=== PATIENT | female | born 1935 | race American Indian/Alaskan Native ===

== ENCOUNTER 2016-09-04 13:54 | Inpatient (IN) | payer MEDICARE ==
[2016-09-04 16:43] LABS: Basophils % (Auto) 0.7 % (0.0-1.8); Eosinophils % (Auto) 1.1 % (0.0-4.3); Hematocrit 33.1 % (30.3-42.9); Hemoglobin 10.8 gm/dl (10.1-14.3); Mean Corpuscular HGB Conc 33 % (30-34); Mean Corpuscular Hemoglobin 29 pg (28-32); Mean Corpuscular Volume 88 fl (79-97); Platelet Count 343 K/mm3 (140-440); Red Blood Count 3.76 M/mm3 (3.65-5.03); Red Cell Distribution Width 19.1 % (13.2-15.2); White Blood Count 13.7 K/mm3 (4.5-11.0)
[2016-09-04 17:01] LABS: INR 1.1 (0.87-1.13)
[2016-09-04 17:03] LABS: BUN/Creatinine Ratio 20.34; Calcium 9.5 mg/dL (8.4-10.2); Chloride 103.1 mmol/L (98-107); Potassium 4.1 mmol/L (3.6-5.0)
[2016-09-04] MEDS ORDERED: PROTONIX IV ONE (17:05)
[2016-09-04] MEDS ORDERED: NACL 0.9% 1000 ML 1,000 ML ONE (17:31)
[2016-09-04] MEDS ORDERED: NACL 0.9% 1000 ML 1,000 ML IV ONE (17:32)
[2016-09-04] MEDS ORDERED: ROCEPHIN/NS 1 GM/50 ML 50 ML IV ONE ×2 (17:32→21:48)
[2016-09-04 18:05] LABS: Creatine Kinase MB 2.5 ng/mL (0.0-4.0)
[2016-09-04 18:06] LABS: Alanine Aminotransferase 8 units/L (7-56); Albumin/Globulin Ratio 0.9 %; Alkaline Phosphatase 74 units/L (35-129); Bilirubin,Total 0.3 mg/dL (0.1-1.2); Creatine Kinase 44 units/L (30-135); Magnesium 2.3 mg/dL (1.7-2.3); Total Protein 6.2 g/dL (6.3-8.2)
[2016-09-04 18:11] LABS: Bilirubin,Direct < 0.2 mg/dL (0-0.2); Bilirubin,Indirect 0.1 mg/dL
--- NOTE | 2016-09-04 19:26 | Admit Criteria Form ---
Admission Criteria Documentation: RENAL FAILURE, ACUTE Clinical Indications for Admission to Inpatient Care ( Place 'X' for any and all applicable criteria): Admission is indicated for ALL (if I & II) or III of the following [A](2)(3)(4)( 5)(6)(7): [X ]I. Acute renal failure as indicated by ANY ONE of the following: [ ]a) A 3-fold rise in serum creatinine from baseline [ ]b) Serum creatinine greater than 4 mg/dL (354 micromoles/L) with an acute rise greater than 0.5 mg/dL (44.2 micromoles/L) [X ]c) Reduction of more than 75% in estimated glomerular filtration rate from baseline [ ]d) Estimated glomerular filtration rate less than 35 mL/min/1.73m2 (0.59mL/sec/1.73m2)in a child up to 18 years of age [ ]e) Anuria indicated by ALL of the following: [ ]i) Adequate volume status [ ]ii) Cessation of urine output indicated by ANY ONE of the following: [ ]1) Urine output less than 0.3 mL/kg/hr for 24 hours [ ]2) Anuria (urine output less than 0.1 mL/kg/ hr) for 12 hours [ X] II. Renal failure cannot be managed in an outpatient setting or observational care setting as indicating by ANY ONE of the following: [ ]a) Altered mental status that is severe or persistent [ ]b) Volume overload or Respiratory distress (eg, clinically significant pulmonary edema) that is severe or persistent [ ]c) Cardiac arrhythmias of immediate concern [ ]d) Hemodynamic instability [ ]e) Clinically significant electrolyte abnormality that requires inpatient care (eg, hyperkalemia with severe ECG findings)[B] [ X]f) Clinically significant metabolic abnormality (eg, acidosis) that is severe or persistent [ ]g) Acute treatment of renal failure (eg, renal replacement therapy) not feasible or appropriate in observational care setting [ ]h) Clinical situation too unstable or uncertain (eg, inadequate urine output, ongoing decline in renal function, etiology unclear) [ ]i) Necessary support and caregiver ability to comply with outpatient treatment cannot be arranged in observation care timeframe (eg, within 24 hours) [ ]j) Other significant finding or clinical condition judged not to be within scope of observation care [X ]III.General contraindications and/or Inappropriate clinical situations for Observational Care in patients with Acute Renal Failure, when ANY ONE of the following is required: [X ]a) Prediction of prolongation of LOS based on ANY ONE of the following may be considered as a contraindication for observational care 2, 3, 4, 5, 6, 7, 8 , 9, 10, 11 [ X]i) Age > 65 yrs. [ ]ii) Patient arriving by ambulance [ ]iii) Patient with high acuity [ ]iv) Patient requiring vital sign monitoring [ ]v) Patient on IV medication [ ]b) Systolic blood pressures 180mmHg 3,12 [ ]c) Patient with altered mental status including delirium and other alteration of consciousness, (3) [ ]d) Patient whose discharge disposition will be to a custodial home or rehabilitation home should not be managed in Emergency Department Observation Unit. CMS rule requires 3 days hospital stay before such placement.3,13 [ ]e) Patient with failure to thrive due to broad array of etiologies 3, 16,17 [ ]f) Inability to ambulate 3,14 Extended stay beyond goal length of stay may be needed for(13) [ ]a) Continuing uremic complications [ ]b) Care for comorbidities [ ]c) acute renal failure [ ]d) Need for dialysis The original [employer] content created by [employer] has been revised. The portions of the content which have been revised are identified through the use of italic text or in bold, and [facility] has neither reviewed nor approved the modified material. All other unmodified content is copyright [facility]. Please see references footnoted in the original [facility] edition 2016 Admission Criteria Met: Yes
--- NOTE | 2016-09-04 21:24 | Emergency Department Report ---
ED Abdominal Pain HPI - General Chief Complaint: Abdominal Pain Stated Complaint: ABD PAIN Time Seen by Provider: 09/04/16 16:46 Source: patient, family Mode of arrival: Wheelchair Limitations: No Limitations - History of Present Illness Initial Comments: The patient is a poor historian. As far as I can tell she is had diarrhea and vague abdominal pain for the past 2 days. He presents here with her son who is quite helpful but is also somewhat uncertain about her history. She states that her stool has been black over this time. She went to her primary care doctor who apparently found her to be hypotensive. She was therefore sent to the emergency department for further evaluation. The field her blood pressure was 112/56 and on repeat it was 0110/49. Apparently it was in the 70s prior. The patient is on Plavix. He is insulin-dependent diabetic. She has history of chronic renal insufficiency. Patient was admitted here in May and ultimately sent to rehabilitation. She is at home at this point. MD Complaint: abdominal pain -: days(s) Location: diffuse Radiation: none Migration to: no migration Severity: moderate Quality: cramping Consistency: intermittent Improves With: nothing Worsens With: nothing Context: other (clopidogrel) - Related Data Home Medications Medication Instructions Recorded Confirmed Last Taken AtorvaSTATin [Lipitor] 20 mg PO QHS 09/04/16 09/04/16 09/04/16 Clopidogrel [Plavix] 75 mg PO QDAY 09/04/16 09/04/16 09/04/16 Furosemide [Lasix TAB] 40 mg PO QDAY 09/04/16 09/04/16 09/04/16 Gabapentin [Neurontin] 400 mg PO BID 09/04/16 09/04/16 09/04/16 Insulin Glargine,Hum.rec.anlog 36 units SQ QHS 09/04/16 09/04/16 09/04/16 [Lantus Solostar] Insulin Lispro [Humalog Kwikpen 8 unit SC QAM 09/04/16 09/04/16 09/04/16 U-200] Losartan [Cozaar] 100 mg PO QAM 09/04/16 09/04/16 09/04/16 amLODIPine [Norvasc] 10 mg PO DAILY 09/04/16 09/04/16 09/04/16 cloNIDine [Catapres] 0.1 mg PO BID 09/04/16 09/04/16 09/04/16 hydrALAZINE [Apresoline TAB] 100 mg PO TID 09/04/16 09/04/16 09/04/16 Allergies Allergy/AdvReac Type Severity Reaction Status Date / Time No Known Allergies Allergy Verified 08/14/15 13:19 ED Review of Systems ROS: Stated complaint: ABD PAIN Other details as noted in HPI Constitutional: denies: chills, fever Eyes: denies: eye pain, eye discharge, vision change ENT: denies: ear pain, throat pain Respiratory: denies: cough, shortness of breath, wheezing Cardiovascular: denies: chest pain, palpitations Endocrine: no symptoms reported Gastrointestinal: abdominal pain, diarrhea. 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 - Social History Smoking Status: Never Smoker Substance Use Type: None - Medications Home Medications: Home Medications Medication Instructions Recorded Confirmed Last Taken Type AtorvaSTATin [Lipitor] 20 mg PO QHS 09/04/16 09/04/16 09/04/16 History Clopidogrel [Plavix] 75 mg PO QDAY 09/04/16 09/04/16 09/04/16 History Furosemide [Lasix TAB] 40 mg PO QDAY 09/04/16 09/04/16 09/04/16 History Gabapentin [Neurontin] 400 mg PO BID 09/04/16 09/04/16 09/04/16 History Insulin Glargine,Hum.rec.anlog 36 units SQ QHS 09/04/16 09/04/16 09/04/16 History [Lantus Solostar] Insulin Lispro [Humalog Kwikpen 8 unit SC QAM 09/04/16 09/04/16 09/04/16 History U-200] Losartan [Cozaar] 100 mg PO QAM 09/04/16 09/04/16 09/04/16 History amLODIPine [Norvasc] 10 mg PO DAILY 09/04/16 09/04/16 09/04/16 History cloNIDine [Catapres] 0.1 mg PO BID 09/04/16 09/04/16 09/04/16 History hydrALAZINE [Apresoline TAB] 100 mg PO TID 09/04/16 09/04/16 09/04/16 History ED Physical Exam - General Limitations: No Limitations General appearance: alert, in no apparent distress, other (looks somewhat dry) - Head Head exam: Present: atraumatic, normocephalic - Eye Eye exam: Present: normal appearance - ENT ENT exam: Present: mucous membranes dry - Neck Neck exam: Present: normal inspection - Respiratory Respiratory exam: Present: normal lung sounds bilaterally. Absent: respiratory distress - Cardiovascular Cardiovascular Exam: Present: regular rate, normal rhythm. Absent: systolic murmur, diastolic murmur, rubs, gallop - GI/Abdominal GI/Abdominal exam: Present: soft, normal bowel sounds. Absent: distended, tenderness, guarding, rebound, rigid, organomegaly, mass, bruit, pulsatile mass , hernia - Rectal Rectal exam: Present: heme (+) stool (trace positive. Not melanotic.) - Extremities Exam Extremities exam: Present: normal inspection - Back Exam Back exam: Present: normal inspection - Neurological Exam Neurological exam: Present: alert, oriented X3, other - Psychiatric Psychiatric exam: Present: normal affect, normal mood - Skin Skin exam: Present: warm, dry, intact, normal color. Absent: rash ED Course Vital Signs 09/04/16 09/04/16 09/04/16 14:18 16:11 16:12 Temperature 97.4 F L Pulse Rate 78 Respiratory 18 Rate Blood Pressure 96/39 103/43 Blood Pressure [Left] O2 Sat by Pulse 100 100 100 Oximetry 09/04/16 09/04/16 09/04/16 16:13 16:15 16:31 Temperature Pulse Rate 52 L 57 L 54 L Respiratory 19 15 11 L Rate Blood Pressure 103/43 103/43 103/43 Blood Pressure [Left] O2 Sat by Pulse 100 95 100 Oximetry 09/04/16 09/04/16 09/04/16 17:00 17:25 17:30 Temperature Pulse Rate 58 L 62 61 Respiratory 10 L 13 11 L Rate Blood Pressure 98/48 98/48 102/51 Blood Pressure [Left] O2 Sat by Pulse 99 99 100 Oximetry 09/04/16 09/04/16 09/04/16 17:32 17:55 18:00 Temperature Pulse Rate 62 65 Respiratory 11 L 11 L 10 L Rate Blood Pressure 102/51 120/49 Blood Pressure [Left] O2 Sat by Pulse 100 100 100 Oximetry 09/04/16 09/04/16 09/04/16 18:30 19:00 19:17 Temperature 97.8 F Pulse Rate 63 65 60 Respiratory 14 11 L 18 Rate Blood Pressure 131/47 128/50 Blood Pressure 128/50 [Left] O2 Sat by Pulse 100 98 99 Oximetry 09/04/16 09/04/16 09/04/16 19:30 20:00 20:30 Temperature Pulse Rate 64 63 55 L Respiratory 9 L 10 L 11 L Rate Blood Pressure 128/47 123/49 114/45 Blood Pressure [Left] O2 Sat by Pulse 99 99 99 Oximetry 09/04/16 09/04/16 09/04/16 21:00 21:30 22:33 Temperature Pulse Rate 59 L 62 63 Respiratory 11 L 8 L Rate Blood Pressure 103/50 112/43 112/43 Blood Pressure [Left] O2 Sat by Pulse 99 100 Oximetry 09/04/16 22:52 Temperature Pulse Rate Respiratory 12 Rate Blood Pressure Blood Pressure [Left] O2 Sat by Pulse Oximetry - Reevaluation(s) Reevaluation #1: The patient was given IV fluid and Protonix. CT of her abdomen was ultimately obtained. It showed nothing acute. Her urine on cath specimen was really quite cloudy and apparently infected. She was treated empirically with ceftriaxone. Her CT did show bilateral nephrolithiasis with an indwelling left ureteral stent. She had no significant hydronephrosis however. I think from a urology consultation. I will defer that to the hospitalist however as he is not urgently required. 09/04/16 23:22 Reevaluation #2: Apparently the patient's first nurse did do a straight cath on the patient. The urine was grossly purulent to me. I simply was sent to the lab. However apparently it was not received. I informed the current nurse to straight cath the patient again and be sure that the urine is sent for evaluation and culture. 09/04/16 23:29 ED Medical Decision Making - Lab Data Result diagrams: 09/04/16 22:10 09/04/16 16:31 Laboratory Results - last 24 hr 09/04/16 09/04/16 09/04/16 16:31 16:31 16:31 WBC 13.7 H RBC 3.76 Hgb 10.8 Hct 33.1 MCV 88 MCH 29 MCHC 33 RDW 19.1 H Plt Count 343 Lymph % (Auto) 28.6 [place] % (Auto) 7.5 H Eos % (Auto) 1.1 Baso % (Auto) 0.7 Lymph # 3.9 [place] # 1.0 H Eos # 0.2 Baso # 0.1 Seg Neutrophils % 62.1 Seg Neutrophils # 8.5 H PT 14.1 INR 1.10 APTT 27.0 Sodium 138 Potassium 4.1 Chloride 103.1 Carbon Dioxide 14 L Anion Gap 25 BUN 59 H Creatinine 2.9 H Estimated GFR 19 BUN/Creatinine Ratio 20.34 Glucose 126 H POC Glucose Lactic Acid Calcium 9.5 Magnesium Total Bilirubin Direct Bilirubin Indirect Bilirubin AST ALT Alkaline Phosphatase Total Creatine Kinase CK-MB (CK-2) CK-MB (CK-2) Rel Index Troponin T 0.031 H Total Protein Albumin Albumin/Globulin Ratio Triglycerides 200 H Cholesterol 131 LDL Cholesterol Direct 58 HDL Cholesterol 33 L Cholesterol/HDL Ratio 3.96 TSH Free T4 09/04/16 09/04/16 09/04/16 17:14 17:14 17:14 WBC RBC Hgb Hct MCV MCH MCHC RDW Plt Count Lymph % (Auto) [place] % (Auto) Eos % (Auto) Baso % (Auto) Lymph # [place] # Eos # Baso # Seg Neutrophils % Seg Neutrophils # PT INR APTT Sodium Potassium Chloride Carbon Dioxide Anion Gap BUN Creatinine Estimated GFR BUN/Creatinine Ratio Glucose POC Glucose Lactic Acid 1.6 Calcium Magnesium 2.3 Total Bilirubin 0.3 Direct Bilirubin < 0.2 Indirect Bilirubin 0.1 AST 12 ALT 8 Alkaline Phosphatase 74 Total Creatine Kinase 44 CK-MB (CK-2) 2.5 CK-MB (CK-2) Rel Index 5.6 H Troponin T Total Protein 6.2 L Albumin 3.0 L Albumin/Globulin Ratio 0.9 Triglycerides Cholesterol LDL Cholesterol Direct HDL Cholesterol Cholesterol/HDL Ratio TSH 2.530 Free T4 1.11 09/04/16 09/04/16 17:51 19:54 WBC RBC Hgb Hct MCV MCH MCHC RDW Plt Count Lymph % (Auto) [place] % (Auto) Eos % (Auto) Baso % (Auto) Lymph # [place] # Eos # Baso # Seg Neutrophils % Seg Neutrophils # PT INR APTT Sodium Potassium Chloride Carbon Dioxide Anion Gap BUN Creatinine Estimated GFR BUN/Creatinine Ratio Glucose POC Glucose 128 H Lactic Acid Calcium Magnesium Total Bilirubin Direct Bilirubin Indirect Bilirubin AST ALT Alkaline Phosphatase Total Creatine Kinase CK-MB (CK-2) CK-MB (CK-2) Rel Index Troponin T 0.027 Total Protein Albumin Albumin/Globulin Ratio Triglycerides Cholesterol LDL Cholesterol Direct HDL Cholesterol Cholesterol/HDL Ratio TSH Free T4 Laboratory Results - last 24 hr 09/04/16 09/04/16 09/04/16 16:31 16:31 16:31 WBC 13.7 H RBC 3.76 Hgb 10.8 Hct 33.1 MCV 88 MCH 29 MCHC 33 RDW 19.1 H Plt Count 343 Lymph % (Auto) 28.6 [place] % (Auto) 7.5 H Eos % (Auto) 1.1 Baso % (Auto) 0.7 Lymph # 3.9 [place] # 1.0 H Eos # 0.2 Baso # 0.1 Seg Neutrophils % 62.1 Seg Neutrophils # 8.5 H PT 14.1 INR 1.10 APTT 27.0 Sodium 138 Potassium 4.1 Chloride 103.1 Carbon Dioxide 14 L Anion Gap 25 BUN 59 H Creatinine 2.9 H Estimated GFR 19 BUN/Creatinine Ratio 20.34 Glucose 126 H POC Glucose Lactic Acid Calcium 9.5 Magnesium Total Bilirubin Direct Bilirubin Indirect Bilirubin AST ALT Alkaline Phosphatase Total Creatine Kinase CK-MB (CK-2) CK-MB (CK-2) Rel Index Troponin T 0.031 H Total Protein Albumin Albumin/Globulin Ratio Triglycerides 200 H Cholesterol 131 LDL Cholesterol Direct 58 HDL Cholesterol 33 L Cholesterol/HDL Ratio 3.96 TSH Free T4 09/04/16 09/04/16 09/04/16 17:14 17:14 17:14 WBC RBC Hgb Hct MCV MCH MCHC RDW Plt Count Lymph % (Auto) [place] % (Auto) Eos % (Auto) Baso % (Auto) Lymph # [place] # Eos # Baso # Seg Neutrophils % Seg Neutrophils # PT INR APTT Sodium Potassium Chloride Carbon Dioxide Anion Gap BUN Creatinine Estimated GFR BUN/Creatinine Ratio Glucose POC Glucose Lactic Acid 1.6 Calcium Magnesium 2.3 Total Bilirubin 0.3 Direct Bilirubin < 0.2 Indirect Bilirubin 0.1 AST 12 ALT 8 Alkaline Phosphatase 74 Total Creatine Kinase 44 CK-MB (CK-2) 2.5 CK-MB (CK-2) Rel Index 5.6 H Troponin T Total Protein 6.2 L Albumin 3.0 L Albumin/Globulin Ratio 0.9 Triglycerides Cholesterol LDL Cholesterol Direct HDL Cholesterol Cholesterol/HDL Ratio TSH 2.530 Free T4 1.11 09/04/16 09/04/16 09/04/16 17:51 19:54 22:10 WBC RBC Hgb Hct MCV MCH MCHC RDW Plt Count Lymph % (Auto) [place] % (Auto) Eos % (Auto) Baso % (Auto) Lymph # [place] # Eos # Baso # Seg Neutrophils % Seg Neutrophils # PT INR APTT Sodium Potassium Chloride Carbon Dioxide Anion Gap BUN Creatinine Estimated GFR BUN/Creatinine Ratio Glucose POC Glucose 128 H Lactic Acid Calcium Magnesium Total Bilirubin Direct Bilirubin Indirect Bilirubin AST ALT Alkaline Phosphatase Total Creatine Kinase CK-MB (CK-2) CK-MB (CK-2) Rel Index Troponin T 0.027 0.030 H Total Protein Albumin Albumin/Globulin Ratio Triglycerides Cholesterol LDL Cholesterol Direct HDL Cholesterol Cholesterol/HDL Ratio TSH Free T4 09/04/16 09/04/16 22:10 22:10 WBC 13.9 H RBC 3.42 L Hgb 9.8 L Hct 29.7 L MCV 87 MCH 29 MCHC 33 RDW 18.9 H Plt Count 353 Lymph % (Auto) 29.7 [place] % (Auto) 8.3 H Eos % (Auto) 1.3 Baso % (Auto) 0.4 Lymph # 4.1 [place] # 1.2 H Eos # 0.2 Baso # 0.1 Seg Neutrophils % 60.3 Seg Neutrophils # 8.4 H PT INR APTT Sodium Potassium Chloride Carbon Dioxide Anion Gap BUN Creatinine Estimated GFR BUN/Creatinine Ratio Glucose POC Glucose Lactic Acid 1.6 Calcium Magnesium Total Bilirubin Direct Bilirubin Indirect Bilirubin AST ALT Alkaline Phosphatase Total Creatine Kinase CK-MB (CK-2) CK-MB (CK-2) Rel Index Troponin T Total Protein Albumin Albumin/Globulin Ratio Triglycerides Cholesterol LDL Cholesterol Direct HDL Cholesterol Cholesterol/HDL Ratio TSH Free T4 - EKG Data -: EKG Interpreted by [facility] EKG shows normal: sinus rhythm, axis, intervals, QRS complexes, ST-T waves Rate: normal - EKG Data Interpretation: no acute changes - Radiology Data Radiology results: report reviewed interpreted by me: See above CT discussion - Medical Decision Making The patient's last creatinine on May 08 was 1.0. She is now acidotic with a creatinine of 2.9. She is in acute renal failure. Perhaps some of this is prerenal. She is given IV fluids. She is admitted for further evaluation. Urology and nephrology consultation would be appropriate during this hospitalization. Critical care attestation.: If time is entered above; I have spent that time in minutes in the direct care of this critically ill patient, excluding procedure time. ED Disposition Clinical Impression: Metabolic acidosis, increased anion gap, Prerenal azotemia, Hypotensive episode , Volume depletion Acute renal failure Qualifiers: Acute renal failure type: unspecified Qualified Code(s): N17.9 - Acute kidney failure, unspecified Diarrhea Qualifiers: Diarrhea type: unspecified type Qualified Code(s): R19.7 - Diarrhea, unspecified GI bleeding Qualifiers: GI bleed type/associated pathology: unspecified gastrointestinal hemorrhage type Qualified Code(s): K92.2 - Gastrointestinal hemorrhage, unspecified Disposition: OP ADMITTED IP TO THIS HOSP Is pt being admited?: Yes Does the pt Need Aspirin: No (GI bleeding) Condition: Stable Time of Disposition: 23:32
[2016-09-04] MEDS ORDERED: SODIUM BICARBONATE IV ONE ×2 (21:35→22:00)
[2016-09-04 22:35] LABS: Basophils % (Auto) 0.4 % (0.0-1.8); Eosinophils % (Auto) 1.3 % (0.0-4.3); Hematocrit 29.7 % (30.3-42.9); Hemoglobin 9.8 gm/dl (10.1-14.3); Mean Corpuscular HGB Conc 33 % (30-34); Mean Corpuscular Hemoglobin 29 pg (28-32); Mean Corpuscular Volume 87 fl (79-97); Platelet Count 353 K/mm3 (140-440); Red Blood Count 3.42 M/mm3 (3.65-5.03); Red Cell Distribution Width 18.9 % (13.2-15.2); White Blood Count 13.9 K/mm3 (4.5-11.0)
--- NOTE | 2016-09-04 22:37 | Cat Scan Report ---
FINAL REPORT EXAM: CT ABDOMEN PELVIS WO CON HISTORY: abd pain TECHNIQUE: Spiral CT scanning of the abdomen and pelvis. No oral or IV contrast administered. Multiplanar reformations. PRIORS: 17 April 2016. FINDINGS: CT abdomen: Visualized lung bases unremarkable. Solid organ evaluation is limited due to lack of IV contrast. Double-J, left ureteral stent in place. 9 mm calcification in the left renal lower pole without significant hydronephrosis. Two calcifications in the right kidney, largest measuring 7 mm in the midpole region without significant hydronephrosis. Rounded hypodensity right kidney measuring 2.4 cm. Approximately 4 cm cystic focus in left adrenal gland about the same. Remainder of visualized abdominal parenchyma grossly unremarkable. Gallbladder surgically absent. CT pelvis: No appreciable calcifications or significant dilatation in the distal ureters. Bowel grossly unremarkable with diverticular change in the sigmoid colon. Appendix within normal limits. No significant free peritoneal fluid or loculated fluid collection. Abdominal aorta is non-aneurysmal. Degenerative changes in thoracolumbar spine. IMPRESSION: 1. Bilateral nephrolithiasis and indwelling, left ureteral stent. No significant hydronephrosis. 2. Right renal hypodensity possibly representing cyst, but nonspecific. Correlation with renal ultrasound may be confirmatory, as clinically indicated. 3. Probable left adrenal cyst, stable. 4. Sigmoid colon diverticulosis.
--- NOTE | 2016-09-04 22:48 | History and Physical Report ---
History of Present Illness Chief complaint: Abdominal pain, loose stools History of present illness: 81 YO Female with HTN, TIA, CHF, DM, OA, CAD S/P Stent Placement presents to ED for evaluation. Pt states that she has experienced pain in her abdomen for the past 2 days, as well as loose stools. Pt states that her stool has been black over this time. Pt seen by PCP and found to be hypotensive with systolic BP in the 70's-80's. Pt instructed to present to ED for evaluation. Pt denies fever, chills, CP, Palpitation, Syncope, Productive cough, or recent ill contacts. Past History Past Medical History: arthritis, CAD, diabetes, heart failure, hypertension, stroke Past Surgical History: hysterectomy Social history: , lives with family. denies: smoking, alcohol abuse, prescription drug abuse Family history: diabetes, hypertension Medications and Allergies Allergies Allergy/AdvReac Type Severity Reaction Status Date / Time No Known Allergies Allergy Verified 08/14/15 13:19 Home Medications Medication Instructions Recorded Confirmed Last Taken Type AtorvaSTATin [Lipitor] 20 mg PO QHS 09/04/16 09/04/16 09/04/16 History Clopidogrel [Plavix] 75 mg PO QDAY 09/04/16 09/04/16 09/04/16 History Furosemide [Lasix TAB] 40 mg PO QDAY 09/04/16 09/04/16 09/04/16 History Gabapentin [Neurontin] 400 mg PO BID 09/04/16 09/04/16 09/04/16 History Insulin Glargine,Hum.rec.anlog 36 units SQ QHS 09/04/16 09/04/16 09/04/16 History [Lantus Solostar] Insulin Lispro [Humalog Kwikpen 8 unit SC QAM 09/04/16 09/04/16 09/04/16 History U-200] Losartan [Cozaar] 100 mg PO QAM 09/04/16 09/04/16 09/04/16 History amLODIPine [Norvasc] 10 mg PO DAILY 09/04/16 09/04/16 09/04/16 History cloNIDine [Catapres] 0.1 mg PO BID 09/04/16 09/04/16 09/04/16 History hydrALAZINE [Apresoline TAB] 100 mg PO TID 09/04/16 09/04/16 09/04/16 History Review of Systems All systems: negative Gastrointestinal: abdominal pain Exam - Constitutional Vitals: Temp Pulse Resp BP Pulse Ox 97.8 F 60 18 128/50 99 09/04/16 19:17 09/04/16 19:17 09/04/16 19:17 09/04/16 19:17 09/04/16 19:17 General appearance: Present: mild distress - EENT Eyes: Present: PERRL ENT: hearing intact, clear oral mucosa - Neck Neck: Present: supple, normal ROM - Respiratory Respiratory effort: normal Respiratory: bilateral: CTA - Cardiovascular Heart Sounds: Present: S1 & S2. Absent: rub, click - Extremities Extremities: pulses symmetrical, No edema Peripheral Pulses: within normal limits - Abdominal General gastrointestinal: Present: soft, non-tender, non-distended, normal bowel sounds Female genitourinary: Present: normal - Integumentary Integumentary: Present: clear, dry, decreased turgor - Musculoskeletal Musculoskeletal: generalized weakness - Psychiatric Psychiatric: appropriate mood/affect, intact judgment & insight - Neurologic Neurologic: CNII-XII intact, moves all extremities Results - Labs CBC & Chem 7: 09/04/16 22:10 09/04/16 16:31 Labs: Abnormal lab results 09/04/16 09/04/16 09/04/16 Range/Units 16:31 16:31 17:14 WBC 13.7 H (4.5-11.0) K/mm3 RBC (3.65-5.03) M/mm3 Hgb (10.1-14.3) gm/dl Hct (30.3-42.9) % RDW 19.1 H (13.2-15.2) % [place] % (Auto) 7.5 H (0.0-7.3) % [place] # 1.0 H (0.0-0.8) K/mm3 Seg Neutrophils # 8.5 H (1.8-7.7) K/mm3 Carbon Dioxide 14 L (22-30) mmol/L BUN 59 H (7-17) mg/dL Creatinine 2.9 H (0.7-1.2) mg/dL Glucose 126 H (65-100) mg/dL POC Glucose (70-105) CK-MB (CK-2) Rel Index 5.6 H (0-4) Troponin T 0.031 H (0.00-0.029) ng/mL Total Protein 6.2 L (6.3-8.2) g/dL Albumin 3.0 L (3.9-5) g/dL Triglycerides 200 H (2-149) mg/dL HDL Cholesterol 33 L (40-59) mg/dL 09/04/16 09/04/16 Range/Units 17:51 22:10 WBC 13.9 H (4.5-11.0) K/mm3 RBC 3.42 L (3.65-5.03) M/mm3 Hgb 9.8 L (10.1-14.3) gm/dl Hct 29.7 L (30.3-42.9) % RDW 18.9 H (13.2-15.2) % [place] % (Auto) 8.3 H (0.0-7.3) % [place] # 1.2 H (0.0-0.8) K/mm3 Seg Neutrophils # 8.4 H (1.8-7.7) K/mm3 Carbon Dioxide (22-30) mmol/L BUN (7-17) mg/dL Creatinine (0.7-1.2) mg/dL Glucose (65-100) mg/dL POC Glucose 128 H (70-105) CK-MB (CK-2) Rel Index (0-4) Troponin T (0.00-0.029) ng/mL Total Protein (6.3-8.2) g/dL Albumin (3.9-5) g/dL Triglycerides (2-149) mg/dL HDL Cholesterol (40-59) mg/dL Assessment and Plan - Patient Problems (1) Sepsis Current Visit: No Status: Acute Qualifiers: Sepsis type: sepsis due to unspecified organism Qualified Code(s): A41.9 - Sepsis, unspecified organism Plan to address problem: Sepsis Protocol: IV abx, IVF, supportive care, (2) Acute renal failure Current Visit: Yes Status: Acute Qualifiers: Acute renal failure type: unspecified Qualified Code(s): N17.9 - Acute kidney failure, unspecified Plan to address problem: IVF, supportive care, treat sepsis, (3) Debility Current Visit: No Status: Acute Plan to address problem: Chronic: supportive care, treat sepsis, PT consulted. (4) UTI (urinary tract infection) Current Visit: No Status: Acute Qualifiers: Urinary tract infection type: acute cystitis Hematuria presence: without hematuria Qualified Code(s): N30.00 - Acute cystitis without hematuria Plan to address problem: IV abx, supportive care, (5) CHF (congestive heart failure) Current Visit: No Status: Chronic Qualifiers: Congestive heart failure type: unspecified congestive heart failure type Congestive heart failure chronicity: unspecified congestive heart failure chronicity Qualified Code(s): I50.9 - Heart failure, unspecified Plan to address problem: No decompensation at tiime of exam, monitor uop q shift, continue current home medication. (6) Hypertension Current Visit: No Status: Chronic Qualifiers: Hypertension type: essential hypertension Qualified Code(s): I10 - Essential (primary) hypertension Plan to address problem: monitor bp q shift, (7) Type 2 diabetes mellitus Current Visit: No Status: Chronic Qualifiers: Diabetes mellitus complication status: with hyperglycemia Diabetes mellitus jail insulin use: with jail use Qualified Code(s): E11.65 - Type 2 diabetes mellitus with hyperglycemia; Z79.4 - halfway (current) use of insulin Plan to address problem: ADA diet, insulin, accu check (8) DVT prophylaxis Current Visit: No Status: Acute
[2016-09-05] MEDS ORDERED: ZOFRAN IV PRN (00:45)
[2016-09-05] MEDS ORDERED: DULCOLAX PR PRN (00:45)
[2016-09-05] MEDS ORDERED: MILK OF MAGNESIA PO PRN (00:45)
[2016-09-05 00:57] LABS: Bacteria,Urine 2+ /HPF (Negative); Bilirubin,Urine NEG (Negative); Blood,Urine MOD (Negative); Ketones,Urine TR mg/dL (Negative); Leukocyte Esterase,Urine LG (Negative); Mucus,Urine FEW /HPF; Nitrite,Urine NEG (Negative); Urobilinogen,Urine < 2.0 mg/dL (<2.0)
[2016-09-05 00:59] LABS: WBC,Urine > 182.0 /HPF (0.0-6.0)
[2016-09-05] MEDS ORDERED: SODIUM CHLORIDE FLUSH SYRINGE 10 ML IV PRN (06:09)
[2016-09-05 06:57] LABS: Creatine Kinase MB 5.2 ng/mL (0.0-4.0)
[2016-09-05] MEDS ORDERED: LOVENOX SUB-Q ONE ×2 (07:36→08:11)
--- NOTE | 2016-09-05 07:51 | XRay Report ---
PORTABLE CHEST: An AP portable view of the chest demonstrates a normal cardiac contour considering the limits of this technique. The lungs are clear with no evidence of infiltrate, fluid or failure. IMPRESSION: Normal portable chest.
[2016-09-05] MEDS: APRESOLINE PO SCH ×3 (08:29→22:45)
[2016-09-05] MEDS ORDERED: COZAAR PO SCH (10:00)
[2016-09-05] MEDS ORDERED: INSULIN LISPRO 8 UNIT SC SCH (10:00)
[2016-09-05] MEDS: PLAVIX PO SCH (12:09)
[2016-09-05] MEDS: LOVENOX SUB-Q SCH (12:09)
[2016-09-05] MEDS: CATAPRES PO SCH ×2 (12:10→22:45)
[2016-09-05] MEDS: NEURONTIN PO SCH ×2 (12:11→22:45)
[2016-09-05] MEDS: NORVASC PO SCH (12:11)
[2016-09-05] MEDS: LASIX PO SCH (13:34)
[2016-09-05 14:07] LABS: Creatine Kinase MB 5.6 ng/mL (0.0-4.0)
[2016-09-05] MEDS: NOVOLOG SUB-Q SCH (15:06)
[2016-09-05] MEDS: NACL 0.45% 1000 ML 1,000 ML IV SCH (15:39)
--- NOTE | 2016-09-05 17:46 | Echocardiography Report ---
Transthoracic Echocardiogram Indication: CHEST PAIN BP: 116/46 HR: 68 Conclusions *There is trace mitral regurgitation. *There is trace tricuspid regurgitation. *The left ventricular chamber size is normal. *Global left ventricular systolic function is normal. *The estimated ejection fraction is 65-70%. *Abnormal left ventricular diastolic filling is observed, consistent with impaired relaxation. *The right ventricular chamber size and systolic function are within normal limits. Findings Procedure Info: The study quality is fair. The study is technically limited due to poor acoustic windows. Left Ventricle: The left ventricular chamber size is normal. Global left ventricular wall motion and contractility are within normal limits. Global left ventricular systolic function is normal. The estimated ejection fraction is 65-70%. Abnormal left ventricular diastolic filling is observed, consistent with impaired relaxation. Left Atrium: The left atrium is normal in size with no visual thrombus identified. Right Ventricle: The right ventricular chamber size and systolic function are within normal limits. Right Atrium: The right atrial cavity size is normal. Aortic Valve: The aortic valve is trileaflet. The aortic valve leaflets are mildly thickened. There is no evidence of aortic regurgitation. There is no evidence of aortic stenosis. The peak instantaneous gradient of the aortic valve is 9 mmHg. The aortic valve area, by peak velocities, is calculated at 3.25 cm2. Mitral Valve: The mitral valve leaflets appear normal. There is trace of mitral regurgitation. There is no evidence of mitral stenosis. Tricuspid Valve: The tricuspid valve is not well visualized. There is trace tricuspid regurgitation. The right ventricular systolic pressure is calculated at 38 mmHg. There is no tricuspid stenosis. Pulmonic Valve: The pulmonic valve is not well visualized. There is trace pulmonic regurgitation. There is no pulmonic stenosis. Pericardium: There is no pericardial effusion. No pleural effusion is present. Aorta: The aorta appears normal. There is no dilatation of the ascending aorta. There is no dilatation of the aortic root. Pulmonary Artery: The main pulmonary artery is not well visualized. Measurements Chambers MM Name Value Normal Range IVSd (MM) 1.06 cm (0.6 - 1.1) LVPWd (MM) 0.99 cm (0.6 - 1.1) IVS:LVPW ratio 1.07 ratio - LVIDd (MM) 3.78 cm (3.7 - 5.6) LVIDs (MM) 2.05 cm (2 - 2.8) LV FS (Teichholz) (MM) 45.8 % - LV FS (cube) (MM) 45.8 % - EF Teichholz (MM) 77.8 % - Ao root diameter (MM) 3.3 cm (2 - 3.7) LA dimension (AP) MM 3.9 cm (1.9 - 4) LA:Ao ratio (MM) 1.18 ratio - AV cusp separation (MM) 2.4 cm (1.5 - 2.6) Chambers 2D Name Value Normal Range IVSd (2D) 1.11 cm (0.6 - 1.1) LVPWd 1.1 cm - LVPWd (2D) 1.12 cm (0.6 - 1.1) IVS:LVPW ratio (2D) 0.99 ratio - LVIDd 3.6 cm - LVIDs 2.6 cm - LVIDd (2D) 3.57 cm (3.7 - 5.6) LVIDs (2D) 2.56 cm (2 - 3.8) LV FS (Teichholz) (2D) 28.3 % - LV FS (cube) (2D) 28.3 % - LV EF (2D) 55 % - EF Teichholz (2D) 55.5 % - LA dimension 2.6 cm - Ao root diameter (2D) 3.2 cm (2 - 3.7) LA dimension (AP) 2D 2.6 cm (1.9 - 4) LA:Ao ratio (2D) 0.81 ratio - Volumes/Mass Name Value Normal Range LA ESV SP 4CH (MOD) 31 ml - LV EDV SP 4CH (MOD) 60 ml - LV ESV SP 4CH (MOD) 23 ml - EF SP 4CH (MOD) 62 % - Diastolic/Systolic Function Name Value Normal Range MV E-wave Vmax 0.73 m/sec - MV deceleration time 335 msec - MV A-wave Vmax 0.97 m/sec - MV E:A ratio 0.8 ratio - LV septal e' Vmax 0.05 m/sec - LV lateral e' Vmax 0.06 m/sec - LV E:e' septal ratio 14.1 ratio - LV E:e' lateral ratio 11.4 ratio - Aortic Valve Name Value Normal Range AV Vmax 1.46 m/sec - AV peak gradient 9 mmHg - LVOT diameter 2.2 cm - LVOT Vmax 1.25 m/sec - LVOT peak gradient 6 mmHg - PANCHO (continuity Vmax) 3.25 cm2 - Tricuspid Valve Name Value Normal Range TR Vmax 2.95 m/sec - TR peak gradient 35 mmHg - RAP 3 mmHg - RVSP 38 mmHg - Pulmonic Valve/Qp:Qs Name Value Normal Range PV Vmax 1.1 m/sec - PV peak gradient 5 mmHg - HI end-diastolic Vmax 1.38 m/sec - PV acceleration time 116 msec -
--- NOTE | 2016-09-05 18:33 | Progress Note ---
Assessment and Plan Assessment and plan: 81 YO Female with HTN, TIA, CHF, DM, OA, CAD S/P Stent Placement presents to ED for evaluation. Pt states that she has experienced pain in her abdomen for the past 2 days, as well as loose stools. Pt states that her stool has been black over this time. Pt seen by PCP and found to be hypotensive with systolic BP in the 70's-80's. Pt instructed to present to ED for evaluation. Pt denies fever, chills, CP, Palpitation, Syncope, Productive cough, or recent ill contacts. * Abdominal pain with diarrhea rule out C. difficile * Stool sent for C. difficile rule out. This is likely secondary to gastroenteritis. Will monitor closely. * Acute kidney injury likely secondary to vasomotor nephropathy * Has prerenal in nature we'll monitor closely patient is being gently hydrated. If no improvement will suggest obtaining a nephrology consultation * Elevated troponin doubt ACS no chest pain * Again no chest pain echocardiogram shows a preserved ejection fraction shows a relaxation defect possible patient's known CHF history is diastolic no exacerbation at this time * Leukocytosis-likely reactive doubt sepsis * Likely reactive bone monitor closely * Dementia * Hypotension likely secondary to volume contraction * Gentle fluid resuscitation * Metabolic acidosis * We'll add bicarbonate to fluids and recheck in a.m. * Anemia * We'll monitor closely * Diabetes mellitus * Insulin therapy. They close attention aspiration has not been elevated much by mouth. * Debility * Physical therapy evaluate and treat * DVT and GI prophylaxis * Anticipate discharge in a.m. if stable and no C. difficile. History Interval history: Follow-up abdominal pain with loose stool Patient seen and examined this morning in no acute distress, patient's poor historian To Reach Family Was Unsuccessful Denies any chest pain, nausea, vomiting, no further diarrhea noted here in the hospital abdominal pain also resolved No fever noted blood pressure controlled No adverse events reported to me by nursing staff Hospitalist Physical - Physical exam Narrative exam: VITAL SIGNS: Reviewed. GENERAL: The patient appeared well nourished and normally developed. Vital signs as documented. HEAD: No signs of head trauma. EYES: Pupils are equal. Extraocular motions intact. EARS: Hearing grossly intact. MOUTH: Oropharynx is normal. NECK: No adenopathy, no JVD. CHEST: Chest with clear breath sounds bilaterally. No wheezes, rales, or rhonchi. CARDIAC: Regular rate and rhythm. S1 and S2, without murmurs, gallops, or rubs. VASCULAR: No Edema. Peripheral pulses normal and equal in all extremities. ABDOMEN: Soft, without detectable tenderness. No sign of distention. No rebound or guarding, and no masses palpated. Bowel Sounds normal. MUSCULOSKELETAL: Good range of motion of all major joints. Extremities without clubbing, cyanosis or edema. NEUROLOGIC EXAM: Alert and oriented x 3. No focal sensory or strength deficits. Speech normal. Follows commands. PSYCHIATRIC: Mood normal. SKIN: No rash or lesions. - Constitutional Vitals: Temp Pulse Resp BP Pulse Ox 97.6 F 64 20 125/58 98 09/05/16 15:00 09/05/16 17:19 09/05/16 15:00 09/05/16 15:00 09/05/16 11:00 General appearance: Present: mild distress Results - Labs CBC & Chem 7: 09/04/16 22:10 09/04/16 16:31 Labs: Laboratory Last Values WBC 13.9 K/mm3 (4.5-11.0) H 09/04/16 22:10 RBC 3.42 M/mm3 (3.65-5.03) L 09/04/16 22:10 Hgb 9.8 gm/dl (10.1-14.3) L 09/04/16 22:10 Hct 29.7 % (30.3-42.9) L 09/04/16 22:10 MCV 87 fl (79-97) 09/04/16 22:10 MCH 29 pg (28-32) 09/04/16 22:10 MCHC 33 % (30-34) 09/04/16 22:10 RDW 18.9 % (13.2-15.2) H 09/04/16 22:10 Plt Count 353 K/mm3 (140-440) 09/04/16 22:10 Lymph % (Auto) 29.7 % (13.4-35.0) 09/04/16 22:10 [place] % (Auto) 8.3 % (0.0-7.3) H 09/04/16 22:10 Eos % (Auto) 1.3 % (0.0-4.3) 09/04/16 22:10 Baso % (Auto) 0.4 % (0.0-1.8) 09/04/16 22:10 Lymph # 4.1 K/mm3 (1.2-5.4) 09/04/16 22:10 [place] # 1.2 K/mm3 (0.0-0.8) H 09/04/16 22:10 Eos # 0.2 K/mm3 (0.0-0.4) 09/04/16 22:10 Baso # 0.1 K/mm3 (0.0-0.1) 09/04/16 22:10 Seg Neutrophils % 60.3 % (40.0-70.0) 09/04/16 22:10 Seg Neutrophils # 8.4 K/mm3 (1.8-7.7) H 09/04/16 22:10 PT 14.1 Sec. (12.2-14.9) 09/04/16 16:31 INR 1.10 (0.87-1.13) 09/04/16 16:31 APTT 27.0 Sec. (24.2-36.6) 09/04/16 16:31 D-Dimer 402.80 ng/mlDDU (0-234) H 09/05/16 01:03 Sodium 138 mmol/L (137-145) 09/04/16 16:31 Potassium 4.1 mmol/L (3.6-5.0) 09/04/16 16:31 Chloride 103.1 mmol/L (98-107) 09/04/16 16:31 Carbon Dioxide 14 mmol/L (22-30) L 09/04/16 16:31 Anion Gap 25 mmol/L 09/04/16 16:31 BUN 59 mg/dL (7-17) H 09/04/16 16:31 Creatinine 2.9 mg/dL (0.7-1.2) H 09/04/16 16:31 Estimated GFR 19 ml/min 09/04/16 16:31 BUN/Creatinine Ratio 20.34 % 09/04/16 16:31 Glucose 126 mg/dL (65-100) H 09/04/16 16:31 POC Glucose 117 (70-105) H 09/05/16 12:46 Lactic Acid 1.6 mmol/L (0.7-2.0) 09/04/16 22:10 Calcium 9.5 mg/dL (8.4-10.2) 09/04/16 16:31 Magnesium 2.3 mg/dL (1.7-2.3) 09/04/16 17:14 Total Bilirubin 0.3 mg/dL (0.1-1.2) 09/04/16 17:14 Direct Bilirubin < 0.2 mg/dL (0-0.2) 09/04/16 17:14 Indirect Bilirubin 0.1 mg/dL 09/04/16 17:14 AST 12 units/L (5-40) 09/04/16 17:14 ALT 8 units/L (7-56) 09/04/16 17:14 Alkaline Phosphatase 74 units/L (35-129) 09/04/16 17:14 Total Creatine Kinase 103 units/L (30-135) 09/05/16 12:58 CK-MB (CK-2) 5.6 ng/mL (0.0-4.0) H 09/05/16 12:58 CK-MB (CK-2) Rel Index 5.4 (0-4) H 09/05/16 12:58 Troponin T 0.019 ng/mL (0.00-0.029) 09/05/16 12:58 Total Protein 6.2 g/dL (6.3-8.2) L 09/04/16 17:14 Albumin 3.0 g/dL (3.9-5) L 09/04/16 17:14 Albumin/Globulin Ratio 0.9 % 09/04/16 17:14 Triglycerides 200 mg/dL (2-149) H 09/04/16 16:31 Cholesterol 131 mg/dL (50-199) 09/04/16 16:31 LDL Cholesterol Direct 58 mg/dL (50-130) 09/04/16 16:31 HDL Cholesterol 33 mg/dL (40-59) L 09/04/16 16:31 Cholesterol/HDL Ratio 3.96 % 09/04/16 16:31 TSH 2.530 mlU/mL (0.270-4.200) 09/04/16 17:14 Free T4 1.11 ng/dL (0.76-1.46) 09/04/16 17:14 Urine Color Yellow (Yellow) 09/04/16 00:12 Urine Turbidity Cloudy (Clear) 09/04/16 00:12 Urine pH 5.0 (5.0-7.0) 09/04/16 00:12 Ur Specific [place] 1.011 (1.003-1.030) 09/04/16 00:12 Urine Protein 100 mg/dl mg/dL (Negative) 09/04/16 00:12 Urine Glucose (UA) Neg mg/dL (Negative) 09/04/16 00:12 Urine Ketones Tr mg/dL (Negative) 09/04/16 00:12 Urine Blood Mod (Negative) 09/04/16 00:12 Urine Nitrite Neg (Negative) 09/04/16 00:12 Urine Bilirubin Neg (Negative) 09/04/16 00:12 Urine Urobilinogen < 2.0 mg/dL (<2.0) 09/04/16 00:12 Ur Leukocyte Esterase Lg (Negative) 09/04/16 00:12 Urine WBC (Auto) > 182.0 /HPF (0.0-6.0) H 09/04/16 00:12 Urine RBC (Auto) 177.0 /HPF (0.0-6.0) 09/04/16 00:12 Urine Bacteria (Auto) 2+ /HPF (Negative) 09/04/16 00:12 Urine WBC Clumps 3+ /HPF 09/04/16 00:12 Amorphous Crystals Few 09/04/16 00:12 Hyaline Casts 4 /LPF 09/04/16 00:12 Urine Mucus Few /HPF 09/04/16 00:12 Urine Yeast (Budding) Few /HPF 09/04/16 00:12 - Imaging and Cardiology Chest x-ray: image reviewed (personally reviewed no acute pathology noted)
[2016-09-05 18:47] LABS: Creatine Kinase MB 5.2 ng/mL (0.0-4.0)
[2016-09-05] MEDS ORDERED: INSULIN GLARGINE HUM REC ANLOG 36 UNIT SQ SCH (22:00)
[2016-09-05] MEDS: SODIUM BICARBONATE PO SCH (22:45)
[2016-09-05] MEDS: LEVEMIR SUB-Q SCH ×2 (22:47→23:15)
[2016-09-06] MEDS: NACL 0.45% 1000 ML 1,000 ML IV SCH ×2 (05:49→22:05)
[2016-09-06 06:09] LABS: BUN/Creatinine Ratio 24.21; Calcium 8.8 mg/dL (8.4-10.2); Chloride 111.6 mmol/L (98-107); Potassium 4.4 mmol/L (3.6-5.0)
[2016-09-06 06:21] LABS: Basophils % (Auto) 0.7 % (0.0-1.8); Eosinophils % (Auto) 1.5 % (0.0-4.3); Hematocrit 26.7 % (30.3-42.9); Hemoglobin 9.1 gm/dl (10.1-14.3); Mean Corpuscular HGB Conc 34 % (30-34); Mean Corpuscular Hemoglobin 29 pg (28-32); Mean Corpuscular Volume 85 fl (79-97); Platelet Count 324 K/mm3 (140-440); Red Blood Count 3.14 M/mm3 (3.65-5.03); Red Cell Distribution Width 18.4 % (13.2-15.2); White Blood Count 12.3 K/mm3 (4.5-11.0)
[2016-09-06] MEDS: LOVENOX SUB-Q SCH (10:25)
[2016-09-06] MEDS: PLAVIX PO SCH (10:26)
[2016-09-06] MEDS: LASIX PO SCH (10:26)
[2016-09-06] MEDS: SODIUM BICARBONATE PO SCH ×2 (10:26→21:55)
[2016-09-06] MEDS: NEURONTIN PO SCH ×2 (10:26→21:55)
[2016-09-06] MEDS: NORVASC PO SCH (10:26)
[2016-09-06] MEDS: NOVOLOG SUB-Q SCH (10:27)
[2016-09-06] MEDS: CATAPRES PO SCH ×2 (10:27→21:55)
[2016-09-06] MEDS: APRESOLINE PO SCH ×3 (10:28→21:55)
[2016-09-06] MEDS ORDERED: FLUARIX QUAD 2016-2017(36 MOS+) IM ONE (12:00)
[2016-09-06] MEDS ORDERED: ZOFRAN IV PRN (12:58)
--- NOTE | 2016-09-06 12:59 | Progress Note ---
Assessment and Plan Assessment and plan: Patient is a 81 YO woman with a history of HTN, TIA, CHF, DM, OA, CAD S/P Stent Placement presents to ED for evaluation. Pt states that she has experienced pain in her abdomen for the past 2 days, as well as loose stools. Pt states that her stool has been black over this time. Pt seen by PCP and found to be hypotensive with systolic BP in the 70's-80's. Pt instructed to present to ED for evaluation. Pt denies fever, chills, CP, Palpitation, Syncope, Productive cough, or recent ill contacts. Abdominal pain with diarrhea rule out C. difficile-->no c.diffe, patient without bowel movement/diarrhea Stool sent for C. difficile rule out. This is likely secondary to gastroenteritis. Will monitor closely. Acute kidney injury likely secondary to vasomotor nephropathy Has prerenal in nature we'll monitor closely patient is being gently hydrated with improvement Elevated troponin doubt ACS no chest pain Again no chest pain echocardiogram shows a preserved ejection fraction shows a relaxation defect possible patient's known CHF history is diastolic no exacerbation at this time Leukocytosis-likely reactive doubt sepsis Likely reactive bone monitor closely Dementia Hypotension likely secondary to volume contraction Gentle fluid resuscitation Metabolic acidosis We'll add bicarbonate to fluids and recheck in a.m. Anemia We'll monitor closely Diabetes mellitus Insulin therapy. They close attention aspiration has not been elevated much by mouth. Debility Physical therapy evaluate and treat DVT and GI prophylaxis Disposition: Continue inpatient care New issues: Drop in hematocrit with positive fecal occult blood: Consult to GI, repeat CBC in a.m. UTI, present on admission--> urine culture cultures in progress, will empirically treated with IV Rocephin CT abdomen and pelvis without contrast showed bilateral nephrolithiasis, left urethral stent and right renal hypodensity--consult urology, reviewed all records stent was placed in 04/[address] Moses History Interval history: Patient seen and examined. Follow up on diarrhea which has stopped. Overnight uneventful. No cp, sob, n/v or severe headaches. Imaging, old records, testing, labs, nursing notes reviewed. Hospitalist Physical - Physical exam Narrative exam: GEN: frial, deconditioned, NAD, AWAKE, ALERT, ORIENTATED HEENT: NCAT, PERRL, EOMI, OP CLEAR NECK: SUPPLE, NO THYROMEGALY, NO JVD, NO LAD CVS: RRR, NORMAL S1S2 LUNGS/CHEST: CTA B, NORMAL CHEST EXPANSION B, GOOD AIR ENTRY B ABD: SOFT NTND, GBS, NO REBOUND OR GUARDING EXT/SKIN: NO SIGNIFICANT EDEMA OR RASH MSK: FROM X 4 EXTREMITIES NEURO: CN 2-12 GROSSLY INTACT, NO new FOCAL DEFICITS PSY: CALM - Constitutional Vitals: Temp Pulse Resp BP Pulse Ox 97.7 F 75 20 114/53 100 09/06/16 08:31 09/06/16 08:31 09/06/16 08:31 09/06/16 08:31 09/06/16 08:31 Results - Labs CBC & Chem 7: 09/06/16 05:01 09/06/16 05:01 Labs: Laboratory Last Values WBC 12.3 K/mm3 (4.5-11.0) H 09/06/16 05:01 RBC 3.14 M/mm3 (3.65-5.03) L 09/06/16 05:01 Hgb 9.1 gm/dl (10.1-14.3) L 09/06/16 05:01 Hct 26.7 % (30.3-42.9) L 09/06/16 05:01 MCV 85 fl (79-97) 09/06/16 05:01 MCH 29 pg (28-32) 09/06/16 05:01 MCHC 34 % (30-34) 09/06/16 05:01 RDW 18.4 % (13.2-15.2) H 09/06/16 05:01 Plt Count 324 K/mm3 (140-440) 09/06/16 05:01 Lymph % (Auto) 22.8 % (13.4-35.0) 09/06/16 05:01 [place] % (Auto) 9.8 % (0.0-7.3) H 09/06/16 05:01 Eos % (Auto) 1.5 % (0.0-4.3) 09/06/16 05:01 Baso % (Auto) 0.7 % (0.0-1.8) 09/06/16 05:01 Lymph # 2.8 K/mm3 (1.2-5.4) 09/06/16 05:01 [place] # 1.2 K/mm3 (0.0-0.8) H 09/06/16 05:01 Eos # 0.2 K/mm3 (0.0-0.4) 09/06/16 05:01 Baso # 0.1 K/mm3 (0.0-0.1) 09/06/16 05:01 Seg Neutrophils % 65.2 % (40.0-70.0) 09/06/16 05:01 Seg Neutrophils # 8.0 K/mm3 (1.8-7.7) H 09/06/16 05:01 PT 14.1 Sec. (12.2-14.9) 09/04/16 16:31 INR 1.10 (0.87-1.13) 09/04/16 16:31 APTT 27.0 Sec. (24.2-36.6) 09/04/16 16:31 D-Dimer 402.80 ng/mlDDU (0-234) H 09/05/16 01:03 Sodium 145 mmol/L (137-145) D 09/06/16 05:01 Potassium 4.4 mmol/L (3.6-5.0) 09/06/16 05:01 Chloride 111.6 mmol/L (98-107) H 09/06/16 05:01 Carbon Dioxide 15 mmol/L (22-30) L 09/06/16 05:01 Anion Gap 23 mmol/L 09/06/16 05:01 BUN 46 mg/dL (7-17) H 09/06/16 05:01 Creatinine 1.9 mg/dL (0.7-1.2) H 09/06/16 05:01 Estimated GFR 31 ml/min 09/06/16 05:01 BUN/Creatinine Ratio 24.21 % 09/06/16 05:01 Glucose 94 mg/dL (65-100) 09/06/16 05:01 POC Glucose 101 (70-105) 09/06/16 05:39 Lactic Acid 1.6 mmol/L (0.7-2.0) 09/04/16 22:10 Calcium 8.8 mg/dL (8.4-10.2) 09/06/16 05:01 Magnesium 2.3 mg/dL (1.7-2.3) 09/04/16 17:14 Total Bilirubin 0.3 mg/dL (0.1-1.2) 09/04/16 17:14 Direct Bilirubin < 0.2 mg/dL (0-0.2) 09/04/16 17:14 Indirect Bilirubin 0.1 mg/dL 09/04/16 17:14 AST 12 units/L (5-40) 09/04/16 17:14 ALT 8 units/L (7-56) 09/04/16 17:14 Alkaline Phosphatase 74 units/L (35-129) 09/04/16 17:14 Total Creatine Kinase 92 units/L (30-135) 09/05/16 17:18 CK-MB (CK-2) 5.2 ng/mL (0.0-4.0) H 09/05/16 17:18 CK-MB (CK-2) Rel Index 5.6 (0-4) H 09/05/16 17:18 Troponin T 0.025 ng/mL (0.00-0.029) 09/05/16 17:18 Total Protein 6.2 g/dL (6.3-8.2) L 09/04/16 17:14 Albumin 3.0 g/dL (3.9-5) L 09/04/16 17:14 Albumin/Globulin Ratio 0.9 % 09/04/16 17:14 Triglycerides 200 mg/dL (2-149) H 09/04/16 16:31 Cholesterol 131 mg/dL (50-199) 09/04/16 16:31 LDL Cholesterol Direct 58 mg/dL (50-130) 09/04/16 16:31 HDL Cholesterol 33 mg/dL (40-59) L 09/04/16 16:31 Cholesterol/HDL Ratio 3.96 % 09/04/16 16:31 TSH 2.530 mlU/mL (0.270-4.200) 09/04/16 17:14 Free T4 1.11 ng/dL (0.76-1.46) 09/04/16 17:14 Urine Color Yellow (Yellow) 09/04/16 00:12 Urine Turbidity Cloudy (Clear) 09/04/16 00:12 Urine pH 5.0 (5.0-7.0) 09/04/16 00:12 Ur Specific [place] 1.011 (1.003-1.030) 09/04/16 00:12 Urine Protein 100 mg/dl mg/dL (Negative) 09/04/16 00:12 Urine Glucose (UA) Neg mg/dL (Negative) 09/04/16 00:12 Urine Ketones Tr mg/dL (Negative) 09/04/16 00:12 Urine Blood Mod (Negative) 09/04/16 00:12 Urine Nitrite Neg (Negative) 09/04/16 00:12 Urine Bilirubin Neg (Negative) 09/04/16 00:12 Urine Urobilinogen < 2.0 mg/dL (<2.0) 09/04/16 00:12 Ur Leukocyte Esterase Lg (Negative) 09/04/16 00:12 Urine WBC (Auto) > 182.0 /HPF (0.0-6.0) H 09/04/16 00:12 Urine RBC (Auto) 177.0 /HPF (0.0-6.0) 09/04/16 00:12 Urine Bacteria (Auto) 2+ /HPF (Negative) 09/04/16 00:12 Urine WBC Clumps 3+ /HPF 09/04/16 00:12 Amorphous Crystals Few 09/04/16 00:12 Hyaline Casts 4 /LPF 09/04/16 00:12 Urine Mucus Few /HPF 09/04/16 00:12 Urine Yeast (Budding) Few /HPF 09/04/16 00:12
--- NOTE | 2016-09-06 15:15 | Progress Note ---
Assessment and Plan rec stent exchange needs stone removal did not f/u poorly compliant dictated will sched for friday or friday Subjective Date of service: 09/06/16 Objective - Constitutional Vitals: Vital Signs - 12hr 09/06/16 09/06/16 04:15 08:31 Temperature 97.4 F L 97.7 F Pulse Rate [ 69 75 Right Radial] Respiratory 18 20 Rate Blood Pressure 121/58 114/53 [Right Arm] O2 Sat by Pulse 97 100 Oximetry General appearance: Present: no acute distress - Neck Neck: supple - Respiratory Respiratory effort: normal Extremities: no ischemia - Gastrointestinal General gastrointestinal: Present: non-tender, tender - Labs CBC & Chem 7: 09/06/16 05:01 09/06/16 05:01 Labs: Abnormal lab results 09/05/16 09/05/16 09/05/16 Range/Units 16:50 17:18 21:39 WBC (4.5-11.0) K/mm3 RBC (3.65-5.03) M/mm3 Hgb (10.1-14.3) gm/dl Hct (30.3-42.9) % RDW (13.2-15.2) % [place] % (Auto) (0.0-7.3) % [place] # (0.0-0.8) K/mm3 Seg Neutrophils # (1.8-7.7) K/mm3 Chloride (98-107) mmol/L Carbon Dioxide (22-30) mmol/L BUN (7-17) mg/dL Creatinine (0.7-1.2) mg/dL POC Glucose 106 H 112 H (70-105) CK-MB (CK-2) 5.2 H (0.0-4.0) ng/mL CK-MB (CK-2) Rel Index 5.6 H (0-4) 09/06/16 09/06/16 Range/Units 05:01 05:01 WBC 12.3 H (4.5-11.0) K/mm3 RBC 3.14 L (3.65-5.03) M/mm3 Hgb 9.1 L (10.1-14.3) gm/dl Hct 26.7 L (30.3-42.9) % RDW 18.4 H (13.2-15.2) % [place] % (Auto) 9.8 H (0.0-7.3) % [place] # 1.2 H (0.0-0.8) K/mm3 Seg Neutrophils # 8.0 H (1.8-7.7) K/mm3 Chloride 111.6 H (98-107) mmol/L Carbon Dioxide 15 L (22-30) mmol/L BUN 46 H (7-17) mg/dL Creatinine 1.9 H (0.7-1.2) mg/dL POC Glucose (70-105) CK-MB (CK-2) (0.0-4.0) ng/mL CK-MB (CK-2) Rel Index (0-4)
[2016-09-06] MEDS: ROCEPHIN/NS 1 GM/50 ML 50 ML IV SCH (16:18)
[2016-09-06] MEDS: LEVEMIR SUB-Q SCH (22:10)
--- NOTE | 2016-09-07 02:06 | Consultation ---
HISTORY OF PRESENT ILLNESS: The patient is a woman who presented with urosepsis. We placed a stent about 6 months ago. She was treated at rehab. She was supposed to follow back and actually her son, who is here said he made an appointment, but they never followed up again. Once again, I explained to him that if she goes home before we exchange the stent or take out her stone, she needs followup. The patient does not understand that completely, but he does and he did and they did not follow up. She had a CT scan which showed no hydronephrosis, and at this point, we will try to change it once she gets stabilized on fluids and antibiotics. PAST MEDICAL HISTORY: Hypertension, previous stroke, cardiovascular disease, diabetes. PAST SURGICAL HISTORY: Previous stent and hysterectomy. SOCIAL HISTORY: Noncontributory. FAMILY HISTORY: Noncontributory. ALLERGIES: Negative. MEDICATIONS: She is on hydralazine, insulin, Neurontin, Lipitor, Plavix, Cozaar, Norvasc. REVIEW OF SYSTEMS: She has no flank pain. No nausea or vomiting. PHYSICAL EXAMINATION: GENERAL: She is awake, although very lethargic, and she does not communicate well. She is aphasic, in no distress. ABDOMEN: Soft, nondistended. No CVA tenderness. IMPRESSION: Retained stent, poorly compliant for cystoscopy, ureteroscopy, we will try to get this scheduled while she is an inpatient. JOB# [id number] VIKY/RAYA
[2016-09-07 05:42] LABS: Hematocrit 25.9 % (30.3-42.9); Hemoglobin 8.6 gm/dl (10.1-14.3); Mean Corpuscular HGB Conc 33 % (30-34); Mean Corpuscular Hemoglobin 29 pg (28-32); Mean Corpuscular Volume 87 fl (79-97); Platelet Count 288 K/mm3 (140-440); Red Blood Count 2.99 M/mm3 (3.65-5.03); Red Cell Distribution Width 18.5 % (13.2-15.2); White Blood Count 11.2 K/mm3 (4.5-11.0)
[2016-09-07 06:08] LABS: Calcium 8.7 mg/dL (8.4-10.2); Potassium 3.5 mmol/L (3.6-5.0)
[2016-09-07] MEDS: APRESOLINE PO SCH ×3 (09:13→22:15)
[2016-09-07] MEDS: ROCEPHIN/NS 1 GM/50 ML 50 ML IV SCH (09:36)
[2016-09-07] MEDS: PLAVIX PO SCH (09:37)
[2016-09-07] MEDS: NEURONTIN PO SCH ×2 (09:37→22:17)
[2016-09-07] MEDS: LOVENOX SUB-Q SCH (09:37)
[2016-09-07] MEDS: NORVASC PO SCH (09:37)
[2016-09-07] MEDS: CATAPRES PO SCH ×2 (09:37→22:15)
[2016-09-07] MEDS: SODIUM BICARBONATE PO SCH (09:37)
[2016-09-07] MEDS: NACL 0.45% 1000 ML 1,000 ML IV SCH ×2 (09:38→18:08)
[2016-09-07] MEDS: NOVOLOG SUB-Q SCH (09:38)
[2016-09-07] MEDS: LASIX PO SCH (09:38)
--- NOTE | 2016-09-07 09:48 | Consultation ---
History of Present Illness Consult date: 09/07/16 Consult reason: tachycardia History of present illness: Cardiology consulted for the evaluation of non-sustained ventricular tachycardia detected on telemetry. Patient is a poor historian therefore history was obtained over the phone from her son Chuck. Patient has a history of CAD s/p PCI in [place]. Son reports that she had a recent stress test as outpatient (not sure of location) and this was reportedly normal. Patient and son denies symptoms of angina, shortness of breath, palpitations or syncope. ECG showing no ischemic changes. Patient originally admitted with abdominal pain , melena and evidence of bilateral nephrolithiasis anticipating ureteral stent exchange early next week. Her first left ureteral stent was inserted 6 months ago without cardiac complications. Past History Past Medical History: arthritis, CAD, diabetes, heart failure, hypertension, stroke Past Surgical History: hysterectomy Social history: , lives with family. denies: smoking, alcohol abuse, prescription drug abuse Family history: diabetes, hypertension Medications and Allergies Allergies Allergy/AdvReac Type Severity Reaction Status Date / Time No Known Allergies Allergy Verified 08/14/15 13:19 Home Medications Medication Instructions Recorded Confirmed Last Taken Type AtorvaSTATin [Lipitor] 20 mg PO QHS 09/04/16 09/04/16 09/04/16 History Clopidogrel [Plavix] 75 mg PO QDAY 09/04/16 09/04/16 09/04/16 History Furosemide [Lasix TAB] 40 mg PO QDAY 09/04/16 09/04/16 09/04/16 History Gabapentin [Neurontin] 400 mg PO BID 09/04/16 09/04/16 09/04/16 History Insulin Glargine,Hum.rec.anlog 36 units SQ QHS 09/04/16 09/04/16 09/04/16 History [Lantus Solostar] Insulin Lispro [Humalog Kwikpen 8 unit SC QAM 09/04/16 09/04/16 09/04/16 History U-200] Losartan [Cozaar] 100 mg PO QAM 09/04/16 09/04/16 09/04/16 History amLODIPine [Norvasc] 10 mg PO DAILY 09/04/16 09/04/16 09/04/16 History cloNIDine [Catapres] 0.1 mg PO BID 09/04/16 09/04/16 09/04/16 History hydrALAZINE [Apresoline TAB] 100 mg PO TID 09/04/16 09/04/16 09/04/16 History Active Meds: Active Medications Acetaminophen (Tylenol) 650 mg PO Q4H PRN PRN Reason: Pain MILD(1-3)/Fever >100.5/HUGHES Amlodipine Besylate (Norvasc) 10 mg PO DAILY [facility] Last Admin: 09/07/16 09:37 Dose: 10 mg Atorvastatin Calcium (Lipitor) 20 mg PO QHS [facility] Last Admin: 09/06/16 21:55 Dose: 20 mg Bisacodyl (Dulcolax) [address] QDAY PRN PRN Reason: Constipation unrelieved by MOM Clonidine HCl (Catapres) 0.1 mg PO BID [facility] Last Admin: 09/07/16 09:37 Dose: 0.1 mg Clopidogrel Bisulfate (Plavix) 75 mg PO QDAY [facility] Last Admin: 09/07/16 09:37 Dose: 75 mg Enoxaparin Sodium (Lovenox) 30 mg SUB-Q QDAY [facility] Last Admin: 09/07/16 09:37 Dose: 30 mg Furosemide (Lasix) 40 mg PO QDAY [facility] Last Admin: 09/07/16 09:38 Dose: 40 mg Gabapentin (Neurontin) 400 mg PO BID [facility] Last Admin: 09/07/16 09:37 Dose: 400 mg Hydralazine HCl (Apresoline) 100 mg PO TID [facility] Last Admin: 09/07/16 09:13 Dose: 100 mg Sodium Chloride (Nacl 0.45% 1000 Ml) 1,000 mls @ 75 mls/hr IV DIRECT [facility] Last Admin: 09/07/16 09:38 Dose: 75 mls/hr Ceftriaxone Sodium (Rocephin/Ns 1 Gm/50 Ml) 50 mls @ 100 mls/hr IV Q24HR [facility] PRN Reason: Protocol Last Admin: 09/07/16 09:36 Dose: 100 mls/hr Insulin Aspart (Novolog) 8 units SUB-Q QAM [facility] Last Admin: 09/07/16 09:38 Dose: Not Given Insulin Detemir (Levemir) 36 units SUB-Q QHS [facility] Last Admin: 09/06/16 22:10 Dose: Not Given Magnesium Hydroxide (Milk Of Magnesia) 30 ml PO Q4H PRN PRN Reason: Constipation Ondansetron HCl (Zofran) 4 mg IV Q4H PRN PRN Reason: Nausea And Vomiting Sodium Bicarbonate (Sodium Bicarbonate) 650 mg PO BID CHIARA Stop: 09/07/16 10:01 Last Admin: 09/07/16 09:37 Dose: 650 mg Sodium Chloride (Sodium Chloride Flush Syringe 10 Ml) 10 ml IV PRN PRN PRN Reason: LINE FLUSH Review of Systems ROS unobtainable: due to mental status Physical Examination Vital Signs Temp Pulse Resp BP Pulse Ox 97.4 F L 78 18 96/39 100 09/04/16 14:18 09/04/16 14:18 09/04/16 14:18 09/04/16 14:18 09/04/16 14:18 General appearance: no acute distress HEENT: Positive: PERRL Neck: Positive: neck supple. Negative: JVD/HJR Cardiac: Positive: Reg Rate and Rhythm Lungs: Positive: Normal Exam Abdomen: Positive: Soft Extremities: Absent: edema Results 09/07/16 04:29 09/07/16 04:29 Cardiac Enzymes 09/05/16 09/05/16 09/05/16 Range/Units 01:03 06:23 08:21 WBC (4.5-11.0) K/mm3 RBC (3.65-5.03) M/mm3 Hgb (10.1-14.3) gm/dl Hct (30.3-42.9) % MCV (79-97) fl MCH (28-32) pg MCHC (30-34) % RDW (13.2-15.2) % Plt Count (140-440) K/mm3 Lymph % (Auto) (13.4-35.0) % [place] % (Auto) (0.0-7.3) % Eos % (Auto) (0.0-4.3) % Baso % (Auto) (0.0-1.8) % Lymph # (1.2-5.4) K/mm3 [place] # (0.0-0.8) K/mm3 Eos # (0.0-0.4) K/mm3 Baso # (0.0-0.1) K/mm3 Seg Neutrophils % (40.0-70.0) % Seg Neutrophils # (1.8-7.7) K/mm3 D-Dimer 402.80 H (0-234) ng/mlDDU Sodium (137-145) mmol/L Potassium (3.6-5.0) mmol/L Chloride (98-107) mmol/L Carbon Dioxide (22-30) mmol/L Anion Gap mmol/L BUN (7-17) mg/dL Creatinine (0.7-1.2) mg/dL Estimated GFR ml/min BUN/Creatinine Ratio % Glucose (65-100) mg/dL POC Glucose 98 (70-105) Calcium (8.4-10.2) mg/dL Total Creatine Kinase 111 (30-135) units/L CK-MB (CK-2) Rel Index 4.6 H (0-4) Troponin T 0.035 H (0.00-0.029) ng/mL 09/05/16 09/05/16 09/05/16 Range/Units 12:46 12:58 16:50 WBC (4.5-11.0) K/mm3 RBC (3.65-5.03) M/mm3 Hgb (10.1-14.3) gm/dl Hct (30.3-42.9) % MCV (79-97) fl MCH (28-32) pg MCHC (30-34) % RDW (13.2-15.2) % Plt Count (140-440) K/mm3 Lymph % (Auto) (13.4-35.0) % [place] % (Auto) (0.0-7.3) % Eos % (Auto) (0.0-4.3) % Baso % (Auto) (0.0-1.8) % Lymph # (1.2-5.4) K/mm3 [place] # (0.0-0.8) K/mm3 Eos # (0.0-0.4) K/mm3 Baso # (0.0-0.1) K/mm3 Seg Neutrophils % (40.0-70.0) % Seg Neutrophils # (1.8-7.7) K/mm3 D-Dimer (0-234) ng/mlDDU Sodium (137-145) mmol/L Potassium (3.6-5.0) mmol/L Chloride (98-107) mmol/L Carbon Dioxide (22-30) mmol/L Anion Gap mmol/L BUN (7-17) mg/dL Creatinine (0.7-1.2) mg/dL Estimated GFR ml/min BUN/Creatinine Ratio % Glucose (65-100) mg/dL POC Glucose 117 H 106 H (70-105) Calcium (8.4-10.2) mg/dL Total Creatine Kinase 103 (30-135) units/L CK-MB (CK-2) Rel Index 5.4 H (0-4) Troponin T 0.019 (0.00-0.029) ng/mL 09/05/16 09/05/16 09/06/16 Range/Units 17:18 21:39 05:01 WBC 12.3 H (4.5-11.0) K/mm3 RBC 3.14 L (3.65-5.03) M/mm3 Hgb 9.1 L (10.1-14.3) gm/dl Hct 26.7 L (30.3-42.9) % MCV 85 (79-97) fl MCH 29 (28-32) pg MCHC 34 (30-34) % RDW 18.4 H (13.2-15.2) % Plt Count 324 (140-440) K/mm3 Lymph % (Auto) 22.8 (13.4-35.0) % [place] % (Auto) 9.8 H (0.0-7.3) % Eos % (Auto) 1.5 (0.0-4.3) % Baso % (Auto) 0.7 (0.0-1.8) % Lymph # 2.8 (1.2-5.4) K/mm3 [place] # 1.2 H (0.0-0.8) K/mm3 Eos # 0.2 (0.0-0.4) K/mm3 Baso # 0.1 (0.0-0.1) K/mm3 Seg Neutrophils % 65.2 (40.0-70.0) % Seg Neutrophils # 8.0 H (1.8-7.7) K/mm3 D-Dimer (0-234) ng/mlDDU Sodium (137-145) mmol/L Potassium (3.6-5.0) mmol/L Chloride (98-107) mmol/L Carbon Dioxide (22-30) mmol/L Anion Gap mmol/L BUN (7-17) mg/dL Creatinine (0.7-1.2) mg/dL Estimated GFR ml/min BUN/Creatinine Ratio % Glucose (65-100) mg/dL POC Glucose 112 H (70-105) Calcium (8.4-10.2) mg/dL Total Creatine Kinase 92 (30-135) units/L CK-MB (CK-2) Rel Index 5.6 H (0-4) Troponin T 0.025 (0.00-0.029) ng/mL 09/06/16 09/06/16 09/06/16 Range/Units 05:01 05:39 11:25 WBC (4.5-11.0) K/mm3 RBC (3.65-5.03) M/mm3 Hgb (10.1-14.3) gm/dl Hct (30.3-42.9) % MCV (79-97) fl MCH (28-32) pg MCHC (30-34) % RDW (13.2-15.2) % Plt Count (140-440) K/mm3 Lymph % (Auto) (13.4-35.0) % [place] % (Auto) (0.0-7.3) % Eos % (Auto) (0.0-4.3) % Baso % (Auto) (0.0-1.8) % Lymph # (1.2-5.4) K/mm3 [place] # (0.0-0.8) K/mm3 Eos # (0.0-0.4) K/mm3 Baso # (0.0-0.1) K/mm3 Seg Neutrophils % (40.0-70.0) % Seg Neutrophils # (1.8-7.7) K/mm3 D-Dimer (0-234) ng/mlDDU Sodium 145 D (137-145) mmol/L Potassium 4.4 (3.6-5.0) mmol/L Chloride 111.6 H (98-107) mmol/L Carbon Dioxide 15 L (22-30) mmol/L Anion Gap 23 mmol/L BUN 46 H (7-17) mg/dL Creatinine 1.9 H (0.7-1.2) mg/dL Estimated GFR 31 ml/min BUN/Creatinine Ratio 24.21 % Glucose 94 (65-100) mg/dL POC Glucose 101 133 H (70-105) Calcium 8.8 (8.4-10.2) mg/dL Total Creatine Kinase (30-135) units/L CK-MB (CK-2) Rel Index (0-4) Troponin T (0.00-0.029) ng/mL 09/06/16 09/06/16 09/07/16 Range/Units 15:30 22:08 04:29 WBC 11.2 H (4.5-11.0) K/mm3 RBC 2.99 L (3.65-5.03) M/mm3 Hgb 8.6 L (10.1-14.3) gm/dl Hct 25.9 L (30.3-42.9) % MCV 87 (79-97) fl MCH 29 (28-32) pg MCHC 33 (30-34) % RDW 18.5 H (13.2-15.2) % Plt Count 288 (140-440) K/mm3 Lymph % (Auto) (13.4-35.0) % [place] % (Auto) (0.0-7.3) % Eos % (Auto) (0.0-4.3) % Baso % (Auto) (0.0-1.8) % Lymph # (1.2-5.4) K/mm3 [place] # (0.0-0.8) K/mm3 Eos # (0.0-0.4) K/mm3 Baso # (0.0-0.1) K/mm3 Seg Neutrophils % (40.0-70.0) % Seg Neutrophils # (1.8-7.7) K/mm3 D-Dimer (0-234) ng/mlDDU Sodium (137-145) mmol/L Potassium (3.6-5.0) mmol/L Chloride (98-107) mmol/L Carbon Dioxide (22-30) mmol/L Anion Gap mmol/L BUN (7-17) mg/dL Creatinine (0.7-1.2) mg/dL Estimated GFR ml/min BUN/Creatinine Ratio % Glucose (65-100) mg/dL POC Glucose 166 H 133 H (70-105) Calcium (8.4-10.2) mg/dL Total Creatine Kinase (30-135) units/L CK-MB (CK-2) Rel Index (0-4) Troponin T (0.00-0.029) ng/mL 09/07/16 09/07/16 Range/Units 04:29 06:46 WBC (4.5-11.0) K/mm3 RBC (3.65-5.03) M/mm3 Hgb (10.1-14.3) gm/dl Hct (30.3-42.9) % MCV (79-97) fl MCH (28-32) pg MCHC (30-34) % RDW (13.2-15.2) % Plt Count (140-440) K/mm3 Lymph % (Auto) (13.4-35.0) % [place] % (Auto) (0.0-7.3) % Eos % (Auto) (0.0-4.3) % Baso % (Auto) (0.0-1.8) % Lymph # (1.2-5.4) K/mm3 [place] # (0.0-0.8) K/mm3 Eos # (0.0-0.4) K/mm3 Baso # (0.0-0.1) K/mm3 Seg Neutrophils % (40.0-70.0) % Seg Neutrophils # (1.8-7.7) K/mm3 D-Dimer (0-234) ng/mlDDU Sodium 142 (137-145) mmol/L Potassium 3.5 L D (3.6-5.0) mmol/L Chloride 109.0 H (98-107) mmol/L Carbon Dioxide 19 L (22-30) mmol/L Anion Gap 18 mmol/L BUN 35 H (7-17) mg/dL Creatinine 1.4 H (0.7-1.2) mg/dL Estimated GFR 44 ml/min BUN/Creatinine Ratio 25.00 % Glucose 103 H (65-100) mg/dL POC Glucose 105 (70-105) Calcium 8.7 (8.4-10.2) mg/dL Total Creatine Kinase (30-135) units/L CK-MB (CK-2) Rel Index (0-4) Troponin T (0.00-0.029) ng/mL CBC 09/07/16 Range/Units 04:29 WBC 11.2 H (4.5-11.0) K/mm3 RBC 2.99 L (3.65-5.03) M/mm3 Hgb 8.6 L (10.1-14.3) gm/dl Hct 25.9 L (30.3-42.9) % Plt Count 288 (140-440) K/mm3 Comprehensive Metabolic Panel 09/07/16 Range/Units 04:29 Sodium 142 (137-145) mmol/L Potassium 3.5 L D (3.6-5.0) mmol/L Chloride 109.0 H (98-107) mmol/L Carbon Dioxide 19 L (22-30) mmol/L BUN 35 H (7-17) mg/dL Creatinine 1.4 H (0.7-1.2) mg/dL Glucose 103 H (65-100) mg/dL Calcium 8.7 (8.4-10.2) mg/dL - EKG Interpretation EKG: sinus rhythm EKG interpretations - Telemetry EKG Rhythm: Sinus Rhythm Assessment and Plan Non-sustained ventricular tachycardia (1 episode) - asymptomatic Normal LVEF by echocardiogram this admission Potassium - 3.5 Magnesium - 2.3 QT prolonging drugs - Zofran prn (no doses have been given) CAD s/p remote PCI in [place] (unknown anatomy) Son reports a recent outpatient stress test as normal (location of the stress test is not known) Negative troponin this admission Anemia with a trending down hemoglobin Patient did complain of black stools on admission Bilateral nephrolithiasis Anticipating ureteral stent exchange early next week Acute on chronic renal disease - improving Dementia Recommendations: Replace potassium to keep it above 4 Avoid QT prolonging drugs Start low dose metoprolol Cardiac risk index for non-cardiac surgery: class III i.e. 14% risk of cardiac complications Perioperative Risk is high but is not prohibitive (discussed with son) Regional anesthesia is preferable over general anesthesia Avoid wide fluctuation in blood pressure during procedure Monitor blood counts Will continue to follow
[2016-09-07] MEDS ORDERED: K-DUR PO ONE ×2 (09:56→13:00)
[2016-09-07] MEDS ORDERED: MAGNESIUM SULFATE 2GM/50ML 50 ML IV ONE (11:45)
--- NOTE | 2016-09-07 11:46 | Progress Note ---
Assessment and Plan Assessment and plan: Patient is a 81 YO woman with a history of HTN, TIA, CHF, DM, OA, CAD S/P Stent Placement presents to ED for evaluation. Pt states that she has experienced pain in her abdomen for the past 2 days, as well as loose stools. Pt states that her stool has been black over this time. Pt seen by PCP and found to be hypotensive with systolic BP in the 70's-80's. Pt instructed to present to ED for evaluation. Pt denies fever, chills, CP, Palpitation, Syncope, Productive cough, or recent ill contacts. Abdominal pain with diarrhea rule out C. difficile-->no c.diffe, patient without bowel movement/diarrhea Stool sent for C. difficile rule out. This is likely secondary to gastroenteritis. Will monitor closely. Acute kidney injury likely secondary to vasomotor nephropathy Has prerenal in nature we'll monitor closely patient is being gently hydrated with improvement Elevated troponin doubt ACS no chest pain Again no chest pain echocardiogram shows a preserved ejection fraction shows a relaxation defect possible patient's known CHF history is diastolic no exacerbation at this time Leukocytosis-likely reactive doubt sepsis Likely reactive bone monitor closely Dementia Hypotension likely secondary to volume contraction Gentle fluid resuscitation Metabolic acidosis We'll add bicarbonate to fluids and recheck in a.m. Anemia We'll monitor closely Diabetes mellitus Insulin therapy. They close attention aspiration has not been elevated much by mouth. Debility Physical therapy evaluate and treat DVT and GI prophylaxis Disposition: Continue inpatient care New issues: Drop in hematocrit with positive fecal occult blood: Consult to GI, repeat CBC in a.m.-->still dropping, GI eval pending, stopped the lovenox UTI, present on admission--> urine culture cultures in progress, will empirically treated with IV Rocephin. still pending CT abdomen and pelvis without contrast showed bilateral nephrolithiasis, left urethral stent and right renal hypodensity--consult urology, reviewed all records stent was placed in 04/[address] Moses==>stent removal on Friday New issue: 17 beat run of nonsustained V. tach, replaced her potassium, ordered magnesium, consulted and discussed with cardiology History Interval history: Patient seen and examined. Follow up on diarrhea which has stopped. Overnight uneventful. No cp, sob, n/v or severe headaches. Imaging, old records, testing, labs, nursing notes reviewed. This morning, she had 17 beat run of nsvt which i reviewed. Hospitalist Physical - Physical exam Narrative exam: GEN: frial, deconditioned, NAD, AWAKE, ALERT, ORIENTATED HEENT: NCAT, PERRL, EOMI, OP CLEAR NECK: SUPPLE, NO THYROMEGALY, NO JVD, NO LAD CVS: RRR, NORMAL S1S2 LUNGS/CHEST: CTA B, NORMAL CHEST EXPANSION B, GOOD AIR ENTRY B ABD: SOFT NTND, GBS, NO REBOUND OR GUARDING EXT/SKIN: NO SIGNIFICANT EDEMA OR RASH MSK: FROM X 4 EXTREMITIES NEURO: CN 2-12 GROSSLY INTACT, NO new FOCAL DEFICITS PSY: CALM - Constitutional Vitals: Temp Pulse Resp BP Pulse Ox 98.3 F 66 18 130/68 98 09/07/16 08:00 09/07/16 08:00 09/07/16 08:00 09/07/16 08:00 09/07/16 08:00 General appearance: Present: no acute distress Results - Labs CBC & Chem 7: 09/07/16 04:29 09/07/16 04:29 Labs: Laboratory Last Values WBC 11.2 K/mm3 (4.5-11.0) H 09/07/16 04:29 RBC 2.99 M/mm3 (3.65-5.03) L 09/07/16 04:29 Hgb 8.6 gm/dl (10.1-14.3) L 09/07/16 04:29 Hct 25.9 % (30.3-42.9) L 09/07/16 04:29 MCV 87 fl (79-97) 09/07/16 04:29 MCH 29 pg (28-32) 09/07/16 04:29 MCHC 33 % (30-34) 09/07/16 04:29 RDW 18.5 % (13.2-15.2) H 09/07/16 04:29 Plt Count 288 K/mm3 (140-440) 09/07/16 04:29 Lymph % (Auto) 22.8 % (13.4-35.0) 09/06/16 05:01 [place] % (Auto) 9.8 % (0.0-7.3) H 09/06/16 05:01 Eos % (Auto) 1.5 % (0.0-4.3) 09/06/16 05:01 Baso % (Auto) 0.7 % (0.0-1.8) 09/06/16 05:01 Lymph # 2.8 K/mm3 (1.2-5.4) 09/06/16 05:01 [place] # 1.2 K/mm3 (0.0-0.8) H 09/06/16 05:01 Eos # 0.2 K/mm3 (0.0-0.4) 09/06/16 05:01 Baso # 0.1 K/mm3 (0.0-0.1) 09/06/16 05:01 Seg Neutrophils % 65.2 % (40.0-70.0) 09/06/16 05:01 Seg Neutrophils # 8.0 K/mm3 (1.8-7.7) H 09/06/16 05:01 PT 14.1 Sec. (12.2-14.9) 09/04/16 16:31 INR 1.10 (0.87-1.13) 09/04/16 16:31 APTT 27.0 Sec. (24.2-36.6) 09/04/16 16:31 D-Dimer 402.80 ng/mlDDU (0-234) H 09/05/16 01:03 Sodium 142 mmol/L (137-145) 09/07/16 04:29 Potassium 3.5 mmol/L (3.6-5.0) L D 09/07/16 04:29 Chloride 109.0 mmol/L (98-107) H 09/07/16 04:29 Carbon Dioxide 19 mmol/L (22-30) L 09/07/16 04:29 Anion Gap 18 mmol/L 09/07/16 04:29 BUN 35 mg/dL (7-17) H 09/07/16 04:29 Creatinine 1.4 mg/dL (0.7-1.2) H 09/07/16 04:29 Estimated GFR 44 ml/min 09/07/16 04:29 BUN/Creatinine Ratio 25.00 % 09/07/16 04:29 Glucose 103 mg/dL (65-100) H 09/07/16 04:29 POC Glucose 105 (70-105) 09/07/16 06:46 Lactic Acid 1.6 mmol/L (0.7-2.0) 09/04/16 22:10 Calcium 8.7 mg/dL (8.4-10.2) 09/07/16 04:29 Magnesium 2.3 mg/dL (1.7-2.3) 09/04/16 17:14 Total Bilirubin 0.3 mg/dL (0.1-1.2) 09/04/16 17:14 Direct Bilirubin < 0.2 mg/dL (0-0.2) 09/04/16 17:14 Indirect Bilirubin 0.1 mg/dL 09/04/16 17:14 AST 12 units/L (5-40) 09/04/16 17:14 ALT 8 units/L (7-56) 09/04/16 17:14 Alkaline Phosphatase 74 units/L (35-129) 09/04/16 17:14 Total Creatine Kinase 92 units/L (30-135) 09/05/16 17:18 CK-MB (CK-2) 5.2 ng/mL (0.0-4.0) H 09/05/16 17:18 CK-MB (CK-2) Rel Index 5.6 (0-4) H 09/05/16 17:18 Troponin T 0.025 ng/mL (0.00-0.029) 09/05/16 17:18 Total Protein 6.2 g/dL (6.3-8.2) L 09/04/16 17:14 Albumin 3.0 g/dL (3.9-5) L 09/04/16 17:14 Albumin/Globulin Ratio 0.9 % 09/04/16 17:14 Triglycerides 200 mg/dL (2-149) H 09/04/16 16:31 Cholesterol 131 mg/dL (50-199) 09/04/16 16:31 LDL Cholesterol Direct 58 mg/dL (50-130) 09/04/16 16:31 HDL Cholesterol 33 mg/dL (40-59) L 09/04/16 16:31 Cholesterol/HDL Ratio 3.96 % 09/04/16 16:31 TSH 2.530 mlU/mL (0.270-4.200) 09/04/16 17:14 Free T4 1.11 ng/dL (0.76-1.46) 09/04/16 17:14 Urine Color Yellow (Yellow) 09/04/16 00:12 Urine Turbidity Cloudy (Clear) 09/04/16 00:12 Urine pH 5.0 (5.0-7.0) 09/04/16 00:12 Ur Specific [place] 1.011 (1.003-1.030) 09/04/16 00:12 Urine Protein 100 mg/dl mg/dL (Negative) 09/04/16 00:12 Urine Glucose (UA) Neg mg/dL (Negative) 09/04/16 00:12 Urine Ketones Tr mg/dL (Negative) 09/04/16 00:12 Urine Blood Mod (Negative) 09/04/16 00:12 Urine Nitrite Neg (Negative) 09/04/16 00:12 Urine Bilirubin Neg (Negative) 09/04/16 00:12 Urine Urobilinogen < 2.0 mg/dL (<2.0) 09/04/16 00:12 Ur Leukocyte Esterase Lg (Negative) 09/04/16 00:12 Urine WBC (Auto) > 182.0 /HPF (0.0-6.0) H 09/04/16 00:12 Urine RBC (Auto) 177.0 /HPF (0.0-6.0) 09/04/16 00:12 Urine Bacteria (Auto) 2+ /HPF (Negative) 09/04/16 00:12 Urine WBC Clumps 3+ /HPF 09/04/16 00:12 Amorphous Crystals Few 09/04/16 00:12 Hyaline Casts 4 /LPF 09/04/16 00:12 Urine Mucus Few /HPF 09/04/16 00:12 Urine Yeast (Budding) Few /HPF 09/04/16 00:12 - Imaging and Cardiology EKG: image reviewed
[2016-09-07] MEDS: LOPRESSOR PO SCH ×2 (12:30→22:16)
--- NOTE | 2016-09-07 14:43 | Consultation ---
History of Present Illness - Reason for Consult Consult date: 09/07/16 Anemia - History of Present Illness See dictated consult note. Past History Past Medical History: arthritis, CAD, diabetes, heart failure, hypertension, stroke Past Surgical History: hysterectomy Social history: , lives with family. denies: smoking, alcohol abuse, prescription drug abuse Family history: diabetes, hypertension Medications and Allergies Allergies Allergy/AdvReac Type Severity Reaction Status Date / Time No Known Allergies Allergy Verified 08/14/15 13:19 Home Medications Medication Instructions Recorded Confirmed Last Taken Type AtorvaSTATin [Lipitor] 20 mg PO QHS 09/04/16 09/04/16 09/04/16 History Clopidogrel [Plavix] 75 mg PO QDAY 09/04/16 09/04/16 09/04/16 History Furosemide [Lasix TAB] 40 mg PO QDAY 09/04/16 09/04/16 09/04/16 History Gabapentin [Neurontin] 400 mg PO BID 09/04/16 09/04/16 09/04/16 History Insulin Glargine,Hum.rec.anlog 36 units SQ QHS 09/04/16 09/04/16 09/04/16 History [Lantus Solostar] Insulin Lispro [Humalog Kwikpen 8 unit SC QAM 09/04/16 09/04/16 09/04/16 History U-200] Losartan [Cozaar] 100 mg PO QAM 09/04/16 09/04/16 09/04/16 History amLODIPine [Norvasc] 10 mg PO DAILY 09/04/16 09/04/16 09/04/16 History cloNIDine [Catapres] 0.1 mg PO BID 09/04/16 09/04/16 09/04/16 History hydrALAZINE [Apresoline TAB] 100 mg PO TID 09/04/16 09/04/16 09/04/16 History Active Meds: Active Medications Acetaminophen (Tylenol) 650 mg PO Q4H PRN PRN Reason: Pain MILD(1-3)/Fever >100.5/HUGHES Amlodipine Besylate (Norvasc) 10 mg PO DAILY [facility] Last Admin: 09/07/16 09:37 Dose: 10 mg Atorvastatin Calcium (Lipitor) 20 mg PO QHS [facility] Last Admin: 09/06/16 21:55 Dose: 20 mg Bisacodyl (Dulcolax) 10 mg DE QDAY PRN PRN Reason: Constipation unrelieved by MOM Clonidine HCl (Catapres) 0.1 mg PO BID [facility] Last Admin: 09/07/16 09:37 Dose: 0.1 mg Clopidogrel Bisulfate (Plavix) 75 mg PO QDAY [facility] Last Admin: 09/07/16 09:37 Dose: 75 mg Furosemide (Lasix) 40 mg PO QDAY [facility] Last Admin: 09/07/16 09:38 Dose: 40 mg Gabapentin (Neurontin) 400 mg PO BID [facility] Last Admin: 09/07/16 09:37 Dose: 400 mg Hydralazine HCl (Apresoline) 100 mg PO TID [facility] Last Admin: 09/07/16 09:13 Dose: 100 mg Sodium Chloride (Nacl 0.45% 1000 Ml) 1,000 mls @ 75 mls/hr IV DIRECT [facility] Last Admin: 09/07/16 09:38 Dose: 75 mls/hr Ceftriaxone Sodium (Rocephin/Ns 1 Gm/50 Ml) 50 mls @ 100 mls/hr IV Q24HR [facility] PRN Reason: Protocol Last Admin: 09/07/16 09:36 Dose: 100 mls/hr Insulin Aspart (Novolog) 8 units SUB-Q QAM [facility] Last Admin: 09/07/16 09:38 Dose: Not Given Insulin Detemir (Levemir) 36 units SUB-Q QHS [facility] Last Admin: 09/06/16 22:10 Dose: Not Given Magnesium Hydroxide (Milk Of Magnesia) 30 ml PO Q4H PRN PRN Reason: Constipation Metoprolol Tartrate (Lopressor) 12.5 mg PO BID [facility] Last Admin: 09/07/16 12:30 Dose: 12.5 mg Ondansetron HCl (Zofran) 4 mg IV Q4H PRN PRN Reason: Nausea And Vomiting Sodium Chloride (Sodium Chloride Flush Syringe 10 Ml) 10 ml IV PRN PRN PRN Reason: LINE FLUSH Exam - Constitutional Vitals: Temp Pulse Resp BP Pulse Ox 98.3 F 66 18 130/68 98 09/07/16 08:00 09/07/16 08:00 09/07/16 08:00 09/07/16 08:00 09/07/16 08:00 Results - Labs CBC & Chem 7: 09/07/16 04:29 09/07/16 04:29 Labs: Abnormal lab results 09/06/16 09/06/16 09/06/16 Range/Units 11:25 15:30 22:08 WBC (4.5-11.0) K/mm3 RBC (3.65-5.03) M/mm3 Hgb (10.1-14.3) gm/dl Hct (30.3-42.9) % RDW (13.2-15.2) % Potassium (3.6-5.0) mmol/L Chloride (98-107) mmol/L Carbon Dioxide (22-30) mmol/L BUN (7-17) mg/dL Creatinine (0.7-1.2) mg/dL Glucose (65-100) mg/dL POC Glucose 133 H 166 H 133 H (70-105) 09/07/16 09/07/16 09/07/16 Range/Units 04:29 04:29 12:03 WBC 11.2 H (4.5-11.0) K/mm3 RBC 2.99 L (3.65-5.03) M/mm3 Hgb 8.6 L (10.1-14.3) gm/dl Hct 25.9 L (30.3-42.9) % RDW 18.5 H (13.2-15.2) % Potassium 3.5 L D (3.6-5.0) mmol/L Chloride 109.0 H (98-107) mmol/L Carbon Dioxide 19 L (22-30) mmol/L BUN 35 H (7-17) mg/dL Creatinine 1.4 H (0.7-1.2) mg/dL Glucose 103 H (65-100) mg/dL POC Glucose 143 H (70-105) Assessment and Plan Pt with multiple medical problems, who is a poor historian, with progressive anemia, and on Plavix. No recent giana GI bleed. - stop Plavix - check stool Guaiac - plan EGD/Colonoscopy in several days, off Plavix - monitor H/H and transfuse as needed.
[2016-09-07 17:08] LABS: Iron 22 ug/dL (37-170); Total Iron Binding Capacity 256 mcg/dL (250-450)
[2016-09-07] MEDS: PROTONIX PO SCH (18:06)
[2016-09-07] MEDS: LEVEMIR SUB-Q SCH (22:16)
[2016-09-08 01:41] LABS: BUN/Creatinine Ratio 23.33; Calcium 8.4 mg/dL (8.4-10.2); Chloride 105.8 mmol/L (98-107); Potassium 3.5 mmol/L (3.6-5.0)
[2016-09-08 05:08] LABS: Hemoglobin 8.4 gm/dl (10.1-14.3); Mean Corpuscular HGB Conc 33 % (30-34); Mean Corpuscular Hemoglobin 29 pg (28-32); Mean Corpuscular Volume 86 fl (79-97); Platelet Count 285 K/mm3 (140-440); Red Blood Count 2.92 M/mm3 (3.65-5.03); Red Cell Distribution Width 18.5 % (13.2-15.2); White Blood Count 10.4 K/mm3 (4.5-11.0)
[2016-09-08] MEDS: NACL 0.45% 1000 ML 1,000 ML IV SCH (05:32)
--- NOTE | 2016-09-08 09:26 | Progress Note ---
Assessment and Plan Non-sustained ventricular tachycardia (1 episode) - asymptomatic Normal LVEF by echocardiogram this admission CAD s/p remote PCI in [place] (unknown anatomy) Son reports a recent outpatient stress test as normal (location of the stress test is not known) Negative troponin this admission Anemia with a trending down hemoglobin Patient did complain of black stools on admission GI planning endoscopy - plavix has been stopped 09/07/2016 Bilateral nephrolithiasis Anticipating ureteral stent exchange early next week Acute on chronic renal disease - improving Dementia Recommendations: Replace potassium to keep it above 4 Avoid QT prolonging drugs Continue low dose metoprolol Cardiac risk index for non-cardiac surgery: class III i.e. 14% risk of cardiac complications Perioperative Risk is high but is not prohibitive (discussed with son) Regional anesthesia is preferable over general anesthesia Avoid wide fluctuation in blood pressure during procedure Monitor blood counts Will continue to follow Subjective Date of service: 09/08/16 Principal diagnosis: NSVT Interval history: Patient denies chest pain or shortness of breath. No further tachyarrhythmias on tele Objective Vital Signs Temp Pulse Pulse Resp BP BP Pulse Ox 09/08/16 08:00 98.3 F 72 18 140/72 97 09/08/16 04:06 98.8 F 71 18 121/58 09/07/16 22:16 72 119/58 09/07/16 22:15 72 119/58 09/07/16 21:58 99 F 72 18 119/58 97 - Physical Examination HEENT: Positive: PERRL Neck: Positive: neck supple. Negative: JVD/HJR Cardiac: Positive: Reg Rate and Rhythm Lungs: Positive: Normal Exam Abdomen: Positive: Soft Extremities: Absent: edema - Labs and Meds CBC 09/08/16 Range/Units 04:20 WBC 10.4 (4.5-11.0) K/mm3 RBC 2.92 L (3.65-5.03) M/mm3 Hgb 8.4 L (10.1-14.3) gm/dl Hct 25.0 L (30.3-42.9) % Plt Count 285 (140-440) K/mm3 Comprehensive Metabolic Panel 09/08/16 Range/Units 00:51 Sodium 137 (137-145) mmol/L Potassium 3.5 L (3.6-5.0) mmol/L Chloride 105.8 (98-107) mmol/L Carbon Dioxide 19 L (22-30) mmol/L BUN 28 H (7-17) mg/dL Creatinine 1.2 (0.7-1.2) mg/dL Glucose 107 H (65-100) mg/dL Calcium 8.4 (8.4-10.2) mg/dL - Imaging and Cardiology EKG: image reviewed
[2016-09-08] MEDS: LASIX PO SCH (09:39)
[2016-09-08] MEDS: ROCEPHIN/NS 1 GM/50 ML 50 ML IV SCH (09:39)
[2016-09-08] MEDS: NEURONTIN PO SCH ×2 (09:40→21:44)
[2016-09-08] MEDS: CATAPRES PO SCH ×2 (09:40→21:45)
[2016-09-08] MEDS: LOPRESSOR PO SCH ×2 (09:40→21:45)
[2016-09-08] MEDS: NORVASC PO SCH (09:40)
[2016-09-08] MEDS: APRESOLINE PO SCH ×3 (09:41→21:45)
[2016-09-08] MEDS: PROTONIX PO SCH (09:41)
[2016-09-08] MEDS: NOVOLOG SUB-Q SCH (10:13)
[2016-09-08] MEDS ORDERED: K-DUR PO ONE (10:19)
--- NOTE | 2016-09-08 11:07 | Progress Note ---
Assessment and Plan Assessment and plan: Patient is a 81 YO woman with a history of HTN, TIA, CHF, DM, OA, CAD S/P Stent Placement presents to ED for evaluation. Pt states that she has experienced pain in her abdomen for the past 2 days, as well as loose stools. Pt states that her stool has been black over this time. Pt seen by PCP and found to be hypotensive with systolic BP in the 70's-80's. Pt instructed to present to ED for evaluation. Pt denies fever, chills, CP, Palpitation, Syncope, Productive cough, or recent ill contacts. Abdominal pain with diarrhea rule out C. difficile-->no c.diffe, patient without bowel movement/diarrhea Stool sent for C. difficile rule out. This is likely secondary to gastroenteritis. Will monitor closely. Acute kidney injury likely secondary to vasomotor nephropathy Has prerenal in nature we'll monitor closely patient is being gently hydrated with improvement Elevated troponin doubt ACS no chest pain Again no chest pain echocardiogram shows a preserved ejection fraction shows a relaxation defect possible patient's known CHF history is diastolic no exacerbation at this time Leukocytosis-likely reactive doubt sepsis Likely reactive bone monitor closely Dementia Hypotension likely secondary to volume contraction Gentle fluid resuscitation Metabolic acidosis We'll add bicarbonate to fluids and recheck in a.m. Anemia We'll monitor closely Diabetes mellitus Insulin therapy. They close attention aspiration has not been elevated much by mouth. Debility Physical therapy evaluate and treat DVT and GI prophylaxis Disposition: Continue inpatient care New issues: Drop in hematocrit with positive fecal occult blood: Consult to GI, repeat CBC in a.m.-->still dropping, GI eval pending, stopped the lovenox UTI, present on admission--> urine culture cultures negative, empirically treated with IV Rocephin. CT abdomen and pelvis without contrast showed bilateral nephrolithiasis, left urethral stent and right renal hypodensity--consult urology, reviewed prior records stent was placed in 04/[address] Moses==>stent removal on Friday New issue: 17 beat run of nonsustained V. tach, replaced her potassium, ordered magnesium, consulted and discussed with cardiology==>appreciated their input Patient needs EGD and colonoscopy but she is on plavix, therefore, she needs to be off that x 5 days (09/12/16 earliest). Would send home but she also needs urethral stent removed which will be done on tomorrow or Friday per Dr. Moses. Also she developed NSVT. So the safest thing to do will be to monitor her inpatient. History Interval history: Patient seen and examined. Follow up on diarrhea which has stopped. Overnight uneventful. No cp, sob, n/v or severe headaches. Imaging, old records, testing, labs, nursing notes reviewed. This morning, she had 17 beat run of nsvt which i reviewed. Hospitalist Physical - Physical exam Narrative exam: GEN: frial, deconditioned, NAD, AWAKE, ALERT, ORIENTATED HEENT: NCAT, PERRL, EOMI, OP CLEAR NECK: SUPPLE, NO THYROMEGALY, NO JVD, NO LAD CVS: RRR, NORMAL S1S2 LUNGS/CHEST: CTA B, NORMAL CHEST EXPANSION B, GOOD AIR ENTRY B ABD: SOFT NTND, GBS, NO REBOUND OR GUARDING EXT/SKIN: NO SIGNIFICANT EDEMA OR RASH MSK: FROM X 4 EXTREMITIES NEURO: CN 2-12 GROSSLY INTACT, NO new FOCAL DEFICITS PSY: CALM - Constitutional Vitals: Temp Pulse Resp BP Pulse Ox 98.3 F 72 18 140/72 97 09/08/16 08:00 09/08/16 09:40 09/08/16 08:00 09/08/16 09:40 09/08/16 08:00 General appearance: Present: no acute distress Results - Labs CBC & Chem 7: 09/08/16 04:20 09/08/16 00:51 Labs: Laboratory Last Values WBC 10.4 K/mm3 (4.5-11.0) 09/08/16 04:20 RBC 2.92 M/mm3 (3.65-5.03) L 09/08/16 04:20 Hgb 8.4 gm/dl (10.1-14.3) L 09/08/16 04:20 Hct 25.0 % (30.3-42.9) L 09/08/16 04:20 MCV 86 fl (79-97) 09/08/16 04:20 MCH 29 pg (28-32) 09/08/16 04:20 MCHC 33 % (30-34) 09/08/16 04:20 RDW 18.5 % (13.2-15.2) H 09/08/16 04:20 Plt Count 285 K/mm3 (140-440) 09/08/16 04:20 Lymph % (Auto) 22.8 % (13.4-35.0) 09/06/16 05:01 Carlton % (Auto) 9.8 % (0.0-7.3) H 09/06/16 05:01 Eos % (Auto) 1.5 % (0.0-4.3) 09/06/16 05:01 Baso % (Auto) 0.7 % (0.0-1.8) 09/06/16 05:01 Lymph # 2.8 K/mm3 (1.2-5.4) 09/06/16 05:01 Carlton # 1.2 K/mm3 (0.0-0.8) H 09/06/16 05:01 Eos # 0.2 K/mm3 (0.0-0.4) 09/06/16 05:01 Baso # 0.1 K/mm3 (0.0-0.1) 09/06/16 05:01 Seg Neutrophils % 65.2 % (40.0-70.0) 09/06/16 05:01 Seg Neutrophils # 8.0 K/mm3 (1.8-7.7) H 09/06/16 05:01 PT 14.1 Sec. (12.2-14.9) 09/04/16 16:31 INR 1.10 (0.87-1.13) 09/04/16 16:31 APTT 27.0 Sec. (24.2-36.6) 09/04/16 16:31 D-Dimer 402.80 ng/mlDDU (0-234) H 09/05/16 01:03 Sodium 137 mmol/L (137-145) 09/08/16 00:51 Potassium 3.5 mmol/L (3.6-5.0) L 09/08/16 00:51 Chloride 105.8 mmol/L (98-107) 09/08/16 00:51 Carbon Dioxide 19 mmol/L (22-30) L 09/08/16 00:51 Anion Gap 16 mmol/L 09/08/16 00:51 BUN 28 mg/dL (7-17) H 09/08/16 00:51 Creatinine 1.2 mg/dL (0.7-1.2) 09/08/16 00:51 Estimated GFR 52 ml/min 09/08/16 00:51 BUN/Creatinine Ratio 23.33 % 09/08/16 00:51 Glucose 107 mg/dL (65-100) H 09/08/16 00:51 POC Glucose 106 (70-105) H 09/08/16 06:40 Lactic Acid 1.6 mmol/L (0.7-2.0) 09/04/16 22:10 Calcium 8.4 mg/dL (8.4-10.2) 09/08/16 00:51 Magnesium 2.0 mg/dL (1.7-2.3) 09/08/16 00:51 Iron 22 ug/dL (37-170) L 09/07/16 04:29 TIBC 256 mcg/dL (250-450) 09/07/16 04:29 Ferritin 285.1 ng/mL (13.0-400.0) 09/07/16 20:00 Total Bilirubin 0.3 mg/dL (0.1-1.2) 09/04/16 17:14 Direct Bilirubin < 0.2 mg/dL (0-0.2) 09/04/16 17:14 Indirect Bilirubin 0.1 mg/dL 09/04/16 17:14 AST 12 units/L (5-40) 09/04/16 17:14 ALT 8 units/L (7-56) 09/04/16 17:14 Alkaline Phosphatase 74 units/L (35-129) 09/04/16 17:14 Total Creatine Kinase 92 units/L (30-135) 09/05/16 17:18 CK-MB (CK-2) 5.2 ng/mL (0.0-4.0) H 09/05/16 17:18 CK-MB (CK-2) Rel Index 5.6 (0-4) H 09/05/16 17:18 Troponin T 0.025 ng/mL (0.00-0.029) 09/05/16 17:18 Total Protein 6.2 g/dL (6.3-8.2) L 09/04/16 17:14 Albumin 3.0 g/dL (3.9-5) L 09/04/16 17:14 Albumin/Globulin Ratio 0.9 % 09/04/16 17:14 Triglycerides 200 mg/dL (2-149) H 09/04/16 16:31 Cholesterol 131 mg/dL (50-199) 09/04/16 16:31 LDL Cholesterol Direct 58 mg/dL (50-130) 09/04/16 16:31 HDL Cholesterol 33 mg/dL (40-59) L 09/04/16 16:31 Cholesterol/HDL Ratio 3.96 % 09/04/16 16:31 TSH 2.530 mlU/mL (0.270-4.200) 09/04/16 17:14 Free T4 1.11 ng/dL (0.76-1.46) 09/04/16 17:14 Urine Color Yellow (Yellow) 09/04/16 00:12 Urine Turbidity Cloudy (Clear) 09/04/16 00:12 Urine pH 5.0 (5.0-7.0) 09/04/16 00:12 Ur Specific [place] 1.011 (1.003-1.030) 09/04/16 00:12 Urine Protein 100 mg/dl mg/dL (Negative) 09/04/16 00:12 Urine Glucose (UA) Neg mg/dL (Negative) 09/04/16 00:12 Urine Ketones Tr mg/dL (Negative) 09/04/16 00:12 Urine Blood Mod (Negative) 09/04/16 00:12 Urine Nitrite Neg (Negative) 09/04/16 00:12 Urine Bilirubin Neg (Negative) 09/04/16 00:12 Urine Urobilinogen < 2.0 mg/dL (<2.0) 09/04/16 00:12 Ur Leukocyte Esterase Lg (Negative) 09/04/16 00:12 Urine WBC (Auto) > 182.0 /HPF (0.0-6.0) H 09/04/16 00:12 Urine RBC (Auto) 177.0 /HPF (0.0-6.0) 09/04/16 00:12 Urine Bacteria (Auto) 2+ /HPF (Negative) 09/04/16 00:12 Urine WBC Clumps 3+ /HPF 09/04/16 00:12 Amorphous Crystals Few 09/04/16 00:12 Hyaline Casts 4 /LPF 09/04/16 00:12 Urine Mucus Few /HPF 09/04/16 00:12 Urine Yeast (Budding) Few /HPF 09/04/16 00:12
--- NOTE | 2016-09-08 15:29 | Progress Note ---
Assessment and Plan 1. Progressive anemia - iron deficient with iron sat'n less than 10%. Pt with multiple medical problems, who is a poor historian, and was on Plavix with last dose on 09/07. No recent giana GI bleed. - check stool Guaiac - plan EGD/Colonoscopy in several days, off Plavix x 5 days total. - monitor H/H and transfuse as needed. Subjective Date of service: 09/08/16 Principal diagnosis: NSVT Interval history: Pt denies GI complaints. Son at bedside. Objective - Constitutional Vitals: Vital Signs - 12hr 09/08/16 09/08/16 09/08/16 04:06 08:00 09:40 Temperature 98.8 F 98.3 F Pulse Rate 72 Pulse Rate [ 71 72 Right Radial] Respiratory 18 18 Rate Blood Pressure 140/72 Blood Pressure 121/58 140/72 [Right Arm] O2 Sat by Pulse 97 Oximetry General appearance: Present: no acute distress - EENT Eyes: PERRL, EOM intact ENT: hearing intact - Respiratory Respiratory effort: normal - Gastrointestinal General gastrointestinal: Present: soft, non-tender - Labs CBC & Chem 7: 09/08/16 04:20 09/08/16 00:51 Labs: Abnormal lab results 09/07/16 09/07/16 09/07/16 Range/Units 04:29 16:39 21:39 RBC (3.65-5.03) M/mm3 Hgb (10.1-14.3) gm/dl Hct (30.3-42.9) % RDW (13.2-15.2) % Potassium (3.6-5.0) mmol/L Carbon Dioxide (22-30) mmol/L BUN (7-17) mg/dL Glucose (65-100) mg/dL POC Glucose 118 H 118 H (70-105) Iron 22 L (37-170) ug/dL 09/08/16 09/08/16 09/08/16 Range/Units 00:51 04:20 06:40 RBC 2.92 L (3.65-5.03) M/mm3 Hgb 8.4 L (10.1-14.3) gm/dl Hct 25.0 L (30.3-42.9) % RDW 18.5 H (13.2-15.2) % Potassium 3.5 L (3.6-5.0) mmol/L Carbon Dioxide 19 L (22-30) mmol/L BUN 28 H (7-17) mg/dL Glucose 107 H (65-100) mg/dL POC Glucose 106 H (70-105) Iron (37-170) ug/dL 09/08/16 Range/Units 12:54 RBC (3.65-5.03) M/mm3 Hgb (10.1-14.3) gm/dl Hct (30.3-42.9) % RDW (13.2-15.2) % Potassium (3.6-5.0) mmol/L Carbon Dioxide (22-30) mmol/L BUN (7-17) mg/dL Glucose (65-100) mg/dL POC Glucose 139 H (70-105) Iron (37-170) ug/dL
[2016-09-08] MEDS: LEVEMIR SUB-Q SCH (21:46)
--- NOTE | 2016-09-09 01:43 | Consultation ---
DATE OF ADMISSION: 09/04/2016 REASON FOR CONSULTATION: Anemia. HISTORY OF PRESENT ILLNESS: The patient is an 81-year-old woman who had been having problems with intermittent abdominal discomfort. She was seen at her primary care office and found to have low blood pressure. Because of this, she was sent to the Emergency Room and admitted. The history is unclear and the patient does appears comfortable at time, but cannot give much details. Currently, she denies abdominal pain during though her son states that she was having vague abdominal discomfort. He notes that over the last month and a half, she has not been eating much in the way of solids and has primarily been drinking Boost. He states that over the last six months, she has lost about 50 pounds. The patient states that occasionally, her bowel movements are black, but she only if she drinks Boost and this happened several hours afterwards. If she does not drink the Boost, she states she does not have a bowel movement. She has been drinking it daily and has been having one bowel movement a day. The patient and son are not aware of any prior history of anemia. There is no known history of peptic ulcer disease, and no known history of colon problems or colonoscopy in the past. There has been no nausea or vomiting that the patient can report. The son thinks she may have had nausea, but the patient denies it. She does not have a good answer as to why she has not been eating solid food, but denies dysphagia. Of note, the patient is on Plavix as a result of a coronary stent and history of TIA. ALLERGIES: She has no known drug allergies. MEDICATIONS: At home, she is on Plavix, Lasix, Lipitor, Neurontin, insulin, Cozaar, Norvasc, Catapres, and Apresoline. PAST MEDICAL HISTORY: She has a history of, 1. Coronary artery disease, status post stent placement. 2. Hypertension. 3. Diabetes. 4. TIA. 5. CHF. FAMILY HISTORY: Noncontributory. SOCIAL HISTORY: Negative for tobacco or ethanol. REVIEW OF SYSTEMS: Negative for chest pain, shortness of breath, cough, hemoptysis, dysuria, hematuria, fevers, chills, or sweats. PHYSICAL EXAMINATION: GENERAL: This is an obese, elderly black female lying in bed, in no apparent distress. VITAL SIGNS: Temperature is 98.3, pulse 66, blood pressure 130/68. HEENT: She is anicteric. Pupils are round and reactive. Oropharynx is clear. LUNGS: Clear bilaterally anteriorly. CARDIOVASCULAR: Regular with no extra heart sounds. ABDOMEN: Obese and soft with good bowel sounds and no organomegaly or tenderness to palpation. RECTAL: Deferred. EXTREMITIES: Reveal no edema. NEUROLOGIC: She is alert, oriented x3, and grossly nonfocal. LABORATORY DATA: White count is 11.2, hemoglobin is now 8.6 with hematocrit 25.9, MCV of 87, platelet count of 288,000. On admission, her hemoglobin was 9.8. In 04/2016, her hemoglobin was 9.7. Her BMP shows sodium 142, potassium 3.5, chloride 109, bicarbonate 19, BUN 35, creatinine 1.4, glucose 103. On admission, his AST was 12, ALT 8, alkaline phosphatase 74, total bilirubin of 0.3, albumin of 3.0. Pro-time was 14.1 with an INR of 1.10 and a PTT of 27. IMPRESSION: 1. Anemia - etiology unclear. The patient relates a history of black stool in the past. Unfortunately, she does not give any localizing history for GI disease. She does have a significant weight loss history, which is worrisome. At this point, I would recommend stopping the Plavix, checking the stool for occult blood as well as checking for iron stores. I would also proceed with endoscopic evaluation in several days after the Plavix is out of her system. RECOMMENDATIONS: 1. Monitor hemoglobin and hematocrit and transfuse as needed. 2. Stop Plavix. 3. Empiric proton pump inhibitors. 4. Check stool for occult blood. 5. Check iron stores. 6. Plan on upper and lower endoscopy after off Plavix for several days. JOB# [id number] HRC/NTS
[2016-09-09 05:27] LABS: Hematocrit 24.8 % (30.3-42.9); Hemoglobin 8.4 gm/dl (10.1-14.3); Mean Corpuscular HGB Conc 34 % (30-34); Mean Corpuscular Hemoglobin 29 pg (28-32); Mean Corpuscular Volume 87 fl (79-97); Platelet Count 266 K/mm3 (140-440); Red Blood Count 2.86 M/mm3 (3.65-5.03); Red Cell Distribution Width 18.6 % (13.2-15.2); White Blood Count 9.9 K/mm3 (4.5-11.0)
[2016-09-09 05:47] LABS: BUN/Creatinine Ratio 17.5; Calcium 8.4 mg/dL (8.4-10.2); Chloride 109.7 mmol/L (98-107); Potassium 3.8 mmol/L (3.6-5.0)
[2016-09-09] MEDS: APRESOLINE PO SCH ×3 (08:12→21:49)
--- NOTE | 2016-09-09 08:19 | Progress Note ---
Assessment and Plan poss stent change needs clearance run V tach await clearance poss cysto friday Subjective Date of service: 09/09/16 Principal diagnosis: NSVT ureteral stone stent Objective - Constitutional Vitals: Vital Signs - 12hr 09/08/16 09/08/16 09/08/16 20:58 21:45 23:31 Temperature 98.7 F Pulse Rate 68 Pulse Rate [ 72 68 Right Radial] Respiratory 18 18 Rate Blood Pressure 130/61 Blood Pressure 130/61 [Right Arm] O2 Sat by Pulse 96 Oximetry 09/09/16 09/09/16 04:39 07:55 Temperature 98.5 F 98.2 F Pulse Rate Pulse Rate [ 67 61 Right Radial] Respiratory 18 18 Rate Blood Pressure Blood Pressure 108/55 107/56 [Right Arm] O2 Sat by Pulse 99 Oximetry - Labs CBC & Chem 7: 09/09/16 04:29 09/09/16 04:29 Labs: Abnormal lab results 09/08/16 09/08/16 09/08/16 Range/Units 12:54 17:16 21:11 RBC (3.65-5.03) M/mm3 Hgb (10.1-14.3) gm/dl Hct (30.3-42.9) % RDW (13.2-15.2) % Chloride (98-107) mmol/L Carbon Dioxide (22-30) mmol/L BUN (7-17) mg/dL Glucose (65-100) mg/dL POC Glucose 139 H 148 H 136 H (70-105) 09/09/16 09/09/16 09/09/16 Range/Units 04:29 04:29 06:25 RBC 2.86 L (3.65-5.03) M/mm3 Hgb 8.4 L (10.1-14.3) gm/dl Hct 24.8 L (30.3-42.9) % RDW 18.6 H (13.2-15.2) % Chloride 109.7 H (98-107) mmol/L Carbon Dioxide 21 L (22-30) mmol/L BUN 21 H (7-17) mg/dL Glucose 112 H (65-100) mg/dL POC Glucose 115 H (70-105)
--- NOTE | 2016-09-09 09:11 | Progress Note ---
Addendum entered and electronically signed by BOB ROJO MD 09/09/16 18:50 : Cardiac status is stable, GI workup of anemia in progress. Original Note: Assessment and Plan Anemia with a trending down hemoglobin Patient did complain of black stools on admission GI planning endoscopy - plavix has been stopped 09/07/2016 Bilateral nephrolithiasis Anticipating ureteral stent exchange early next week Non-sustained ventricular tachycardia (1 episode) - asymptomatic Normal LVEF by echocardiogram this admission Hx of CAD s/p remote PCI in [place] (unknown anatomy) Son reports a recent outpatient stress test as normal (location of the stress test is not known) Acute on chronic renal disease - improving Dementia Recommendations: Continue low dose metoprolol Cardiac risk index for non-cardiac surgery: Perioperative Risk is high but is not prohibitive Regional anesthesia is preferable over general anesthesia Avoid wide fluctuation in blood pressure during procedure Subjective Date of service: 09/09/16 Principal diagnosis: NSVT ureteral stone stent Interval history: Patient has no complaints. She denies palpitations and chest pain. Stable sinus rhythm on telemetry. Objective Vital Signs Temp Pulse Pulse Resp BP BP Pulse Ox 09/09/16 07:55 98.2 F 61 18 107/56 99 09/09/16 04:39 98.5 F 67 18 108/55 09/08/16 23:31 98.7 F 68 18 130/61 96 09/08/16 21:45 68 130/61 09/08/16 20:58 72 18 09/08/16 16:45 98.6 F 74 18 122/58 09/08/16 09:40 72 140/72 - Physical Examination General: No Apparent Distress HEENT: Positive: PERRL Neck: Positive: neck supple Cardiac: Positive: Reg Rate and Rhythm Lungs: Positive: Decreased Breath Sounds Extremities: Absent: edema - Labs and Meds CBC 09/09/16 Range/Units 04:29 WBC 9.9 (4.5-11.0) K/mm3 RBC 2.86 L (3.65-5.03) M/mm3 Hgb 8.4 L (10.1-14.3) gm/dl Hct 24.8 L (30.3-42.9) % Plt Count 266 (140-440) K/mm3 Comprehensive Metabolic Panel 09/09/16 Range/Units 04:29 Sodium 141 (137-145) mmol/L Potassium 3.8 (3.6-5.0) mmol/L Chloride 109.7 H (98-107) mmol/L Carbon Dioxide 21 L (22-30) mmol/L BUN 21 H (7-17) mg/dL Creatinine 1.2 (0.7-1.2) mg/dL Glucose 112 H (65-100) mg/dL Calcium 8.4 (8.4-10.2) mg/dL - Imaging and Cardiology EKG: image reviewed
[2016-09-09] MEDS: ROCEPHIN/NS 1 GM/50 ML 50 ML IV SCH (10:42)
[2016-09-09] MEDS: PROTONIX PO SCH (10:42)
[2016-09-09] MEDS: LOPRESSOR PO SCH ×2 (10:43→21:51)
[2016-09-09] MEDS: NORVASC PO SCH (10:43)
[2016-09-09] MEDS: NEURONTIN PO SCH ×2 (10:43→21:48)
[2016-09-09] MEDS: CATAPRES PO SCH ×2 (10:44→22:37)
[2016-09-09] MEDS: LASIX PO SCH (10:44)
[2016-09-09] MEDS: NOVOLOG SUB-Q SCH (10:46)
--- NOTE | 2016-09-09 13:23 | Progress Note ---
Hospitalist Physical - Constitutional Vitals: Temp Pulse Resp BP Pulse Ox 98.4 F 62 20 119/55 98 09/09/16 12:00 09/09/16 12:00 09/09/16 12:00 09/09/16 12:00 09/09/16 12:00 General appearance: Present: no acute distress Results - Labs CBC & Chem 7: 09/09/16 04:29 09/09/16 04:29 Labs: Laboratory Last Values WBC 9.9 K/mm3 (4.5-11.0) 09/09/16 04:29 RBC 2.86 M/mm3 (3.65-5.03) L 09/09/16 04:29 Hgb 8.4 gm/dl (10.1-14.3) L 09/09/16 04:29 Hct 24.8 % (30.3-42.9) L 09/09/16 04:29 MCV 87 fl (79-97) 09/09/16 04:29 MCH 29 pg (28-32) 09/09/16 04:29 MCHC 34 % (30-34) 09/09/16 04:29 RDW 18.6 % (13.2-15.2) H 09/09/16 04:29 Plt Count 266 K/mm3 (140-440) 09/09/16 04:29 Lymph % (Auto) 22.8 % (13.4-35.0) 09/06/16 05:01 [place] % (Auto) 9.8 % (0.0-7.3) H 09/06/16 05:01 Eos % (Auto) 1.5 % (0.0-4.3) 09/06/16 05:01 Baso % (Auto) 0.7 % (0.0-1.8) 09/06/16 05:01 Lymph # 2.8 K/mm3 (1.2-5.4) 09/06/16 05:01 [place] # 1.2 K/mm3 (0.0-0.8) H 09/06/16 05:01 Eos # 0.2 K/mm3 (0.0-0.4) 09/06/16 05:01 Baso # 0.1 K/mm3 (0.0-0.1) 09/06/16 05:01 Seg Neutrophils % 65.2 % (40.0-70.0) 09/06/16 05:01 Seg Neutrophils # 8.0 K/mm3 (1.8-7.7) H 09/06/16 05:01 PT 14.1 Sec. (12.2-14.9) 09/04/16 16:31 INR 1.10 (0.87-1.13) 09/04/16 16:31 APTT 27.0 Sec. (24.2-36.6) 09/04/16 16:31 D-Dimer 402.80 ng/mlDDU (0-234) H 09/05/16 01:03 Sodium 141 mmol/L (137-145) 09/09/16 04:29 Potassium 3.8 mmol/L (3.6-5.0) 09/09/16 04:29 Chloride 109.7 mmol/L (98-107) H 09/09/16 04:29 Carbon Dioxide 21 mmol/L (22-30) L 09/09/16 04:29 Anion Gap 14 mmol/L 09/09/16 04:29 BUN 21 mg/dL (7-17) H 09/09/16 04:29 Creatinine 1.2 mg/dL (0.7-1.2) 09/09/16 04:29 Estimated GFR 52 ml/min 09/09/16 04:29 BUN/Creatinine Ratio 17.50 % 09/09/16 04:29 Glucose 112 mg/dL (65-100) H 09/09/16 04:29 POC Glucose 157 (70-105) H 09/09/16 11:36 Lactic Acid 1.6 mmol/L (0.7-2.0) 09/04/16 22:10 Calcium 8.4 mg/dL (8.4-10.2) 09/09/16 04:29 Magnesium 2.0 mg/dL (1.7-2.3) 09/08/16 00:51 Iron 22 ug/dL (37-170) L 09/07/16 04:29 TIBC 256 mcg/dL (250-450) 09/07/16 04:29 Ferritin 285.1 ng/mL (13.0-400.0) 09/07/16 20:00 Total Bilirubin 0.3 mg/dL (0.1-1.2) 09/04/16 17:14 Direct Bilirubin < 0.2 mg/dL (0-0.2) 09/04/16 17:14 Indirect Bilirubin 0.1 mg/dL 09/04/16 17:14 AST 12 units/L (5-40) 09/04/16 17:14 ALT 8 units/L (7-56) 09/04/16 17:14 Alkaline Phosphatase 74 units/L (35-129) 09/04/16 17:14 Total Creatine Kinase 92 units/L (30-135) 09/05/16 17:18 CK-MB (CK-2) 5.2 ng/mL (0.0-4.0) H 09/05/16 17:18 CK-MB (CK-2) Rel Index 5.6 (0-4) H 09/05/16 17:18 Troponin T 0.025 ng/mL (0.00-0.029) 09/05/16 17:18 Total Protein 6.2 g/dL (6.3-8.2) L 09/04/16 17:14 Albumin 3.0 g/dL (3.9-5) L 09/04/16 17:14 Albumin/Globulin Ratio 0.9 % 09/04/16 17:14 Triglycerides 200 mg/dL (2-149) H 09/04/16 16:31 Cholesterol 131 mg/dL (50-199) 09/04/16 16:31 LDL Cholesterol Direct 58 mg/dL (50-130) 09/04/16 16:31 HDL Cholesterol 33 mg/dL (40-59) L 09/04/16 16:31 Cholesterol/HDL Ratio 3.96 % 09/04/16 16:31 TSH 2.530 mlU/mL (0.270-4.200) 09/04/16 17:14 Free T4 1.11 ng/dL (0.76-1.46) 09/04/16 17:14 Urine Color Yellow (Yellow) 09/04/16 00:12 Urine Turbidity Cloudy (Clear) 09/04/16 00:12 Urine pH 5.0 (5.0-7.0) 09/04/16 00:12 Ur Specific [place] 1.011 (1.003-1.030) 09/04/16 00:12 Urine Protein 100 mg/dl mg/dL (Negative) 09/04/16 00:12 Urine Glucose (UA) Neg mg/dL (Negative) 09/04/16 00:12 Urine Ketones Tr mg/dL (Negative) 09/04/16 00:12 Urine Blood Mod (Negative) 09/04/16 00:12 Urine Nitrite Neg (Negative) 09/04/16 00:12 Urine Bilirubin Neg (Negative) 09/04/16 00:12 Urine Urobilinogen < 2.0 mg/dL (<2.0) 09/04/16 00:12 Ur Leukocyte Esterase Lg (Negative) 09/04/16 00:12 Urine WBC (Auto) > 182.0 /HPF (0.0-6.0) H 09/04/16 00:12 Urine RBC (Auto) 177.0 /HPF (0.0-6.0) 09/04/16 00:12 Urine Bacteria (Auto) 2+ /HPF (Negative) 09/04/16 00:12 Urine WBC Clumps 3+ /HPF 09/04/16 00:12 Amorphous Crystals Few 09/04/16 00:12 Hyaline Casts 4 /LPF 09/04/16 00:12 Urine Mucus Few /HPF 09/04/16 00:12 Urine Yeast (Budding) Few /HPF 09/04/16 00:12
--- NOTE | 2016-09-09 13:46 | Progress Note ---
Assessment and Plan Assessment and plan: Patient is a 81 YO woman with a history of HTN, TIA, CHF, DM, OA, CAD S/P Stent Placement presents presented with Melena, Acute blood loss anemia, hypovolemia and hypotension Melena, Acute blood loss anemia continue to hold plavix, GI input appreciated, will have EGD /colonoscopy when patient has been off Plavix for 5 days. transfuse as needed; Hg currently stable; likely for egd/c-scope on 09/11 Acute kidney injury likely secondary to vasomotor nephropathy Resolved with hydration Bilateral nephrolithiasis For Stent exchange tomorrow CAD; cardiology input appreciated "Continue low dose metoprolol Cardiac risk index for non-cardiac surgery: Perioperative Risk is high but is not prohibitive (discussed with son) Regional anesthesia is preferable over general anesthesia Avoid wide fluctuation in blood pressure during procedure" Hypotension likely secondary to volume contraction resolved with IV hydration Diabetes mellitus continue insulins Dementia- supportive care History Interval history: no melena overnight, no events Hospitalist Physical - Physical exam Narrative exam: GEN: frial, deconditioned, NAD, AWAKE, ALERT, ORIENTATED HEENT: NCAT, PERRL, EOMI, OP CLEAR NECK: SUPPLE, NO THYROMEGALY, NO JVD, NO LAD CVS: RRR, NORMAL S1S2 LUNGS/CHEST: CTA B, NORMAL CHEST EXPANSION B, GOOD AIR ENTRY B ABD: SOFT NTND, GBS, NO REBOUND OR GUARDING EXT/SKIN: NO SIGNIFICANT EDEMA OR RASH MSK: FROM X 4 EXTREMITIES NEURO: CN 2-12 GROSSLY INTACT, NO new FOCAL DEFICITS PSY: CALM - Constitutional Vitals: Temp Pulse Resp BP Pulse Ox 98.4 F 62 20 119/55 98 09/09/16 12:00 09/09/16 12:00 09/09/16 12:00 09/09/16 12:00 09/09/16 12:00 General appearance: Present: no acute distress Results - Labs CBC & Chem 7: 09/09/16 04:29 09/09/16 04:29 Labs: Laboratory Last Values WBC 9.9 K/mm3 (4.5-11.0) 09/09/16 04:29 RBC 2.86 M/mm3 (3.65-5.03) L 09/09/16 04:29 Hgb 8.4 gm/dl (10.1-14.3) L 09/09/16 04:29 Hct 24.8 % (30.3-42.9) L 09/09/16 04:29 MCV 87 fl (79-97) 09/09/16 04:29 MCH 29 pg (28-32) 09/09/16 04:29 MCHC 34 % (30-34) 09/09/16 04:29 RDW 18.6 % (13.2-15.2) H 09/09/16 04:29 Plt Count 266 K/mm3 (140-440) 09/09/16 04:29 Lymph % (Auto) 22.8 % (13.4-35.0) 09/06/16 05:01 [place] % (Auto) 9.8 % (0.0-7.3) H 09/06/16 05:01 Eos % (Auto) 1.5 % (0.0-4.3) 09/06/16 05:01 Baso % (Auto) 0.7 % (0.0-1.8) 09/06/16 05:01 Lymph # 2.8 K/mm3 (1.2-5.4) 09/06/16 05:01 [place] # 1.2 K/mm3 (0.0-0.8) H 09/06/16 05:01 Eos # 0.2 K/mm3 (0.0-0.4) 09/06/16 05:01 Baso # 0.1 K/mm3 (0.0-0.1) 09/06/16 05:01 Seg Neutrophils % 65.2 % (40.0-70.0) 09/06/16 05:01 Seg Neutrophils # 8.0 K/mm3 (1.8-7.7) H 09/06/16 05:01 PT 14.1 Sec. (12.2-14.9) 09/04/16 16:31 INR 1.10 (0.87-1.13) 09/04/16 16:31 APTT 27.0 Sec. (24.2-36.6) 09/04/16 16:31 D-Dimer 402.80 ng/mlDDU (0-234) H 09/05/16 01:03 Sodium 141 mmol/L (137-145) 09/09/16 04:29 Potassium 3.8 mmol/L (3.6-5.0) 09/09/16 04:29 Chloride 109.7 mmol/L (98-107) H 09/09/16 04:29 Carbon Dioxide 21 mmol/L (22-30) L 09/09/16 04:29 Anion Gap 14 mmol/L 09/09/16 04:29 BUN 21 mg/dL (7-17) H 09/09/16 04:29 Creatinine 1.2 mg/dL (0.7-1.2) 09/09/16 04:29 Estimated GFR 52 ml/min 09/09/16 04:29 BUN/Creatinine Ratio 17.50 % 09/09/16 04:29 Glucose 112 mg/dL (65-100) H 09/09/16 04:29 POC Glucose 157 (70-105) H 09/09/16 11:36 Lactic Acid 1.6 mmol/L (0.7-2.0) 09/04/16 22:10 Calcium 8.4 mg/dL (8.4-10.2) 09/09/16 04:29 Magnesium 2.0 mg/dL (1.7-2.3) 09/08/16 00:51 Iron 22 ug/dL (37-170) L 09/07/16 04:29 TIBC 256 mcg/dL (250-450) 09/07/16 04:29 Ferritin 285.1 ng/mL (13.0-400.0) 09/07/16 20:00 Total Bilirubin 0.3 mg/dL (0.1-1.2) 09/04/16 17:14 Direct Bilirubin < 0.2 mg/dL (0-0.2) 09/04/16 17:14 Indirect Bilirubin 0.1 mg/dL 09/04/16 17:14 AST 12 units/L (5-40) 09/04/16 17:14 ALT 8 units/L (7-56) 09/04/16 17:14 Alkaline Phosphatase 74 units/L (35-129) 09/04/16 17:14 Total Creatine Kinase 92 units/L (30-135) 09/05/16 17:18 CK-MB (CK-2) 5.2 ng/mL (0.0-4.0) H 09/05/16 17:18 CK-MB (CK-2) Rel Index 5.6 (0-4) H 09/05/16 17:18 Troponin T 0.025 ng/mL (0.00-0.029) 09/05/16 17:18 Total Protein 6.2 g/dL (6.3-8.2) L 09/04/16 17:14 Albumin 3.0 g/dL (3.9-5) L 09/04/16 17:14 Albumin/Globulin Ratio 0.9 % 09/04/16 17:14 Triglycerides 200 mg/dL (2-149) H 09/04/16 16:31 Cholesterol 131 mg/dL (50-199) 09/04/16 16:31 LDL Cholesterol Direct 58 mg/dL (50-130) 09/04/16 16:31 HDL Cholesterol 33 mg/dL (40-59) L 09/04/16 16:31 Cholesterol/HDL Ratio 3.96 % 09/04/16 16:31 TSH 2.530 mlU/mL (0.270-4.200) 09/04/16 17:14 Free T4 1.11 ng/dL (0.76-1.46) 09/04/16 17:14 Urine Color Yellow (Yellow) 09/04/16 00:12 Urine Turbidity Cloudy (Clear) 09/04/16 00:12 Urine pH 5.0 (5.0-7.0) 09/04/16 00:12 Ur Specific [place] 1.011 (1.003-1.030) 09/04/16 00:12 Urine Protein 100 mg/dl mg/dL (Negative) 09/04/16 00:12 Urine Glucose (UA) Neg mg/dL (Negative) 09/04/16 00:12 Urine Ketones Tr mg/dL (Negative) 09/04/16 00:12 Urine Blood Mod (Negative) 09/04/16 00:12 Urine Nitrite Neg (Negative) 09/04/16 00:12 Urine Bilirubin Neg (Negative) 09/04/16 00:12 Urine Urobilinogen < 2.0 mg/dL (<2.0) 09/04/16 00:12 Ur Leukocyte Esterase Lg (Negative) 09/04/16 00:12 Urine WBC (Auto) > 182.0 /HPF (0.0-6.0) H 09/04/16 00:12 Urine RBC (Auto) 177.0 /HPF (0.0-6.0) 09/04/16 00:12 Urine Bacteria (Auto) 2+ /HPF (Negative) 09/04/16 00:12 Urine WBC Clumps 3+ /HPF 09/04/16 00:12 Amorphous Crystals Few 09/04/16 00:12 Hyaline Casts 4 /LPF 09/04/16 00:12 Urine Mucus Few /HPF 09/04/16 00:12 Urine Yeast (Budding) Few /HPF 09/04/16 00:12
--- NOTE | 2016-09-09 15:22 | Anesthesia Consultation ---
Addendum entered and electronically signed by MILTON AVALOS PA 09/11/16 10:27 : S/P Cysto, RPG, Uretroscopy, Laser, J stent placment by Dr. frank 09/10 No Anesthetic compilcations noted. Chart reviewed. Lungs CTA RRR Original Note: Anesthesia Consult and Med Hx Date of service: 09/09/16 - Airway Anesthetic Teeth Evaluation: Poor (#5 is loose, #7 is broken, some missing teeth ) ROM Head & Neck: Adequate Mental/Hyoid Distance: Adequate Mallampati Class: Class II Intubation Access Assessment: Probably Good - Pre-Operative Health Status ASA Pre-Surgery Classification: ASA3 Proposed Anesthetic Plan: General - Pulmonary Hx Smoking: Yes (1p/d x 40 years) Hx Respiratory Symptoms: Yes (cough with some mucous discharge) Hx Sleep Apnea: No - Cardiovascular System Hx Hypertension: Yes Hx Coronary Artery Disease: Yes Hx Angina: (h/o CHF) Hx Percutaneous Transluminal Coronary Angioplasty (PTCA): Yes - Central Nervous System Hx Seizures: No CVA: Yes - Gastrointestinal Hx Ulcer: (melena?) - Endocrine Hx Renal Disease: Yes (CKF) Hx Non-Insulin Dependent Diabetes: Yes - Hematic Hx Anemia: Yes - Other Systems Hx Alcohol Use: No Hx Substance Use: No Hx Cancer: No
--- NOTE | 2016-09-09 16:21 | Event Note ---
Date: 09/09/16 Plan for ureteral stent exchange tomorrow noted. If so, will do colon/EGD on 07/18.
[2016-09-09] MEDS: NACL 0.45% 1000 ML 1,000 ML IV SCH (19:33)
[2016-09-09] MEDS: LEVEMIR SUB-Q SCH (22:36)
[2016-09-10] MEDS ORDERED: NS IV ONE (00:24)
[2016-09-10] MEDS ORDERED: GARAMYCIN IV ONE (00:24)
[2016-09-10] MEDS ORDERED: PEPCID IV NR (07:00)
[2016-09-10] MEDS: APRESOLINE PO SCH ×3 (07:50→20:10)
--- NOTE | 2016-09-10 08:03 | Progress Note ---
Assessment and Plan Assessment and plan: Patient is a 81 YO woman with a history of HTN, TIA, CHF, DM, OA, CAD S/P Stent Placement presents presented with Melena, Acute blood loss anemia, hypovolemia and hypotension Melena, Acute blood loss anemia continue to hold plavix, GI input appreciated, will have EGD /colonoscopy when patient has been off Plavix for 5 days. transfuse as needed; Hg currently stable; likely for egd/c-scope on 09/11 Acute kidney injury likely secondary to vasomotor nephropathy Resolved with hydration Bilateral nephrolithiasis For Stent exchange 09/10/16 CAD; cardiology input appreciated "Continue low dose metoprolol Cardiac risk index for non-cardiac surgery: Perioperative Risk is high but is not prohibitive (discussed with son) Regional anesthesia is preferable over general anesthesia Avoid wide fluctuation in blood pressure during procedure" Hypotension likely secondary to volume contraction resolved with IV hydration Diabetes mellitus continue insulins Dementia- supportive care History Interval history: no melena overnight, no events Hospitalist Physical - Physical exam Narrative exam: GEN: frial, deconditioned, NAD, AWAKE, ALERT, ORIENTATED HEENT: NCAT, PERRL, EOMI, OP CLEAR NECK: SUPPLE, NO THYROMEGALY, NO JVD, NO LAD CVS: RRR, NORMAL S1S2 LUNGS/CHEST: CTA B, NORMAL CHEST EXPANSION B, GOOD AIR ENTRY B ABD: SOFT NTND, GBS, NO REBOUND OR GUARDING EXT/SKIN: NO SIGNIFICANT EDEMA OR RASH MSK: FROM X 4 EXTREMITIES NEURO: CN 2-12 GROSSLY INTACT, NO new FOCAL DEFICITS PSY: CALM - Constitutional Vitals: Temp Pulse Resp BP Pulse Ox 98.2 F 69 20 119/56 98 09/10/16 07:52 09/10/16 07:52 09/10/16 07:52 09/10/16 07:52 09/10/16 07:52 General appearance: Present: no acute distress Results - Labs CBC & Chem 7: 09/09/16 04:29 09/09/16 04:29 Labs: Laboratory Last Values WBC 9.9 K/mm3 (4.5-11.0) 09/09/16 04:29 RBC 2.86 M/mm3 (3.65-5.03) L 09/09/16 04:29 Hgb 8.4 gm/dl (10.1-14.3) L 09/09/16 04:29 Hct 24.8 % (30.3-42.9) L 09/09/16 04:29 MCV 87 fl (79-97) 09/09/16 04:29 MCH 29 pg (28-32) 09/09/16 04:29 MCHC 34 % (30-34) 09/09/16 04:29 RDW 18.6 % (13.2-15.2) H 09/09/16 04:29 Plt Count 266 K/mm3 (140-440) 09/09/16 04:29 Lymph % (Auto) 22.8 % (13.4-35.0) 09/06/16 05:01 [place] % (Auto) 9.8 % (0.0-7.3) H 09/06/16 05:01 Eos % (Auto) 1.5 % (0.0-4.3) 09/06/16 05:01 Baso % (Auto) 0.7 % (0.0-1.8) 09/06/16 05:01 Lymph # 2.8 K/mm3 (1.2-5.4) 09/06/16 05:01 [place] # 1.2 K/mm3 (0.0-0.8) H 09/06/16 05:01 Eos # 0.2 K/mm3 (0.0-0.4) 09/06/16 05:01 Baso # 0.1 K/mm3 (0.0-0.1) 09/06/16 05:01 Seg Neutrophils % 65.2 % (40.0-70.0) 09/06/16 05:01 Seg Neutrophils # 8.0 K/mm3 (1.8-7.7) H 09/06/16 05:01 PT 14.1 Sec. (12.2-14.9) 09/04/16 16:31 INR 1.10 (0.87-1.13) 09/04/16 16:31 APTT 27.0 Sec. (24.2-36.6) 09/04/16 16:31 D-Dimer 402.80 ng/mlDDU (0-234) H 09/05/16 01:03 Sodium 141 mmol/L (137-145) 09/09/16 04:29 Potassium 3.8 mmol/L (3.6-5.0) 09/09/16 04:29 Chloride 109.7 mmol/L (98-107) H 09/09/16 04:29 Carbon Dioxide 21 mmol/L (22-30) L 09/09/16 04:29 Anion Gap 14 mmol/L 09/09/16 04:29 BUN 21 mg/dL (7-17) H 09/09/16 04:29 Creatinine 1.2 mg/dL (0.7-1.2) 09/09/16 04:29 Estimated GFR 52 ml/min 09/09/16 04:29 BUN/Creatinine Ratio 17.50 % 09/09/16 04:29 Glucose 112 mg/dL (65-100) H 09/09/16 04:29 POC Glucose 124 (70-105) H 09/10/16 06:25 Lactic Acid 1.6 mmol/L (0.7-2.0) 09/04/16 22:10 Calcium 8.4 mg/dL (8.4-10.2) 09/09/16 04:29 Magnesium 2.0 mg/dL (1.7-2.3) 09/08/16 00:51 Iron 22 ug/dL (37-170) L 09/07/16 04:29 TIBC 256 mcg/dL (250-450) 09/07/16 04:29 Ferritin 285.1 ng/mL (13.0-400.0) 09/07/16 20:00 Total Bilirubin 0.3 mg/dL (0.1-1.2) 09/04/16 17:14 Direct Bilirubin < 0.2 mg/dL (0-0.2) 09/04/16 17:14 Indirect Bilirubin 0.1 mg/dL 09/04/16 17:14 AST 12 units/L (5-40) 09/04/16 17:14 ALT 8 units/L (7-56) 09/04/16 17:14 Alkaline Phosphatase 74 units/L (35-129) 09/04/16 17:14 Total Creatine Kinase 92 units/L (30-135) 09/05/16 17:18 CK-MB (CK-2) 5.2 ng/mL (0.0-4.0) H 09/05/16 17:18 CK-MB (CK-2) Rel Index 5.6 (0-4) H 09/05/16 17:18 Troponin T 0.025 ng/mL (0.00-0.029) 09/05/16 17:18 Total Protein 6.2 g/dL (6.3-8.2) L 09/04/16 17:14 Albumin 3.0 g/dL (3.9-5) L 09/04/16 17:14 Albumin/Globulin Ratio 0.9 % 09/04/16 17:14 Triglycerides 200 mg/dL (2-149) H 09/04/16 16:31 Cholesterol 131 mg/dL (50-199) 09/04/16 16:31 LDL Cholesterol Direct 58 mg/dL (50-130) 09/04/16 16:31 HDL Cholesterol 33 mg/dL (40-59) L 09/04/16 16:31 Cholesterol/HDL Ratio 3.96 % 09/04/16 16:31 TSH 2.530 mlU/mL (0.270-4.200) 09/04/16 17:14 Free T4 1.11 ng/dL (0.76-1.46) 09/04/16 17:14 Urine Color Yellow (Yellow) 09/04/16 00:12 Urine Turbidity Cloudy (Clear) 09/04/16 00:12 Urine pH 5.0 (5.0-7.0) 09/04/16 00:12 Ur Specific [place] 1.011 (1.003-1.030) 09/04/16 00:12 Urine Protein 100 mg/dl mg/dL (Negative) 09/04/16 00:12 Urine Glucose (UA) Neg mg/dL (Negative) 09/04/16 00:12 Urine Ketones Tr mg/dL (Negative) 09/04/16 00:12 Urine Blood Mod (Negative) 09/04/16 00:12 Urine Nitrite Neg (Negative) 09/04/16 00:12 Urine Bilirubin Neg (Negative) 09/04/16 00:12 Urine Urobilinogen < 2.0 mg/dL (<2.0) 09/04/16 00:12 Ur Leukocyte Esterase Lg (Negative) 09/04/16 00:12 Urine WBC (Auto) > 182.0 /HPF (0.0-6.0) H 09/04/16 00:12 Urine RBC (Auto) 177.0 /HPF (0.0-6.0) 09/04/16 00:12 Urine Bacteria (Auto) 2+ /HPF (Negative) 09/04/16 00:12 Urine WBC Clumps 3+ /HPF 09/04/16 00:12 Amorphous Crystals Few 09/04/16 00:12 Hyaline Casts 4 /LPF 09/04/16 00:12 Urine Mucus Few /HPF 09/04/16 00:12 Urine Yeast (Budding) Few /HPF 09/04/16 00:12
--- NOTE | 2016-09-10 09:21 | Progress Note ---
Addendum entered and electronically signed by BOB ROJO MD 09/10/16 19:10 : Cardiac status is stable. Original Note: Assessment and Plan Anemia with a trending down hemoglobin Patient did complain of black stools on admission GI planning endoscopy - plavix has been stopped 09/07/2016 Bilateral nephrolithiasis Anticipating ureteral stent exchange Non-sustained ventricular tachycardia (1 episode) - asymptomatic Normal LVEF by echocardiogram this admission Hx of CAD s/p remote PCI in [place] (unknown anatomy) Son reports a recent outpatient stress test as normal (location of the stress test is not known) Acute on chronic renal disease - improving Dementia Recommendations: Continue low dose metoprolol Cardiac risk index for non-cardiac surgery: Perioperative Risk is high but is not prohibitive Regional anesthesia is preferable over general anesthesia Avoid wide fluctuation in blood pressure during procedure Subjective Date of service: 09/10/16 Principal diagnosis: NSVT ureteral stone stent Interval history: Patient has no complaints. She denies palpitations and chest pain. Objective Vital Signs Temp Pulse Pulse Pulse Resp BP BP 09/10/16 07:52 98.2 F 69 20 119/56 09/10/16 04:00 97.9 F 70 20 09/10/16 00:00 98.0 F 72 20 09/09/16 16:30 98.3 F 67 18 09/09/16 12:00 98.4 F 62 20 09/09/16 10:44 70 111/56 BP Pulse Ox 09/10/16 07:52 98 09/10/16 04:00 128/70 97 09/10/16 00:00 130/68 98 09/09/16 16:30 123/61 99 09/09/16 12:00 119/55 98 09/09/16 10:44 - Physical Examination General: No Apparent Distress HEENT: Positive: PERRL Neck: Positive: neck supple Cardiac: Positive: Reg Rate and Rhythm Lungs: Positive: Decreased Breath Sounds Extremities: Absent: edema - Imaging and Cardiology EKG: image reviewed
[2016-09-10] MEDS: NOVOLOG SUB-Q SCH (09:31)
[2016-09-10] MEDS: CATAPRES PO SCH ×2 (09:31→22:24)
[2016-09-10] MEDS: ROCEPHIN/NS 1 GM/50 ML 50 ML IV SCH (09:31)
[2016-09-10] MEDS: NEURONTIN PO SCH ×2 (09:31→22:23)
[2016-09-10] MEDS: LOPRESSOR PO SCH ×2 (09:31→22:23)
[2016-09-10] MEDS: NACL 0.9% 1000 ML 1,000 ML IV SCH ×2 (09:32→10:23)
[2016-09-10] MEDS ORDERED: XYLOCAINE MPF 2% ONE (09:43)
[2016-09-10] MEDS ORDERED: DIPRIVAN 10 MG/ML IV ONE (09:44)
[2016-09-10] MEDS ORDERED: DILAUDID ONE (09:46)
[2016-09-10] MEDS ORDERED: DILAUDID IV PRN ×2 (10:35)
[2016-09-10] MEDS ORDERED: WATER FOR IRRIG STERILE IR ONE (11:38)
[2016-09-10] MEDS ORDERED: LASIX ONE (12:38)
--- NOTE | 2016-09-10 12:51 | Post Operative Note ---
Pre-op diagnosis: L ureteral renal stone Post-op diagnosis: same Findings: as above obst stent Procedure: cysto l rpg l ureteroscopy llaser j stent Anesthesia: GETA Surgeon: RYAN KNIGHT Estimated blood loss: none Pathology: none Condition: stable Disposition: PACU
[2016-09-10] MEDS ORDERED: GARAMYCIN 80 MG in NACL 0.9% 100 ML IV SCH (13:00)
--- NOTE | 2016-09-10 13:26 | Operative Report ---
PREOPERATIVE DIAGNOSES: Retained stent, poorly compliant, previous urosepsis, ureteral renal stone. POSTOPERATIVE DIAGNOSES: Retained stent, poorly compliant, previous urosepsis, ureteral renal stone. PROCEDURE: Cystoscopy, removal of obstructed left stent with left retrograde and flexible ureteroscopy with laser of a large stone that was in the ureter, now in the kidney into multiple pieces and reinsertion of double-J stent. SURGEON: Moe Moses MD ANESTHESIA: General. FINDINGS: This is a woman who had sepsis and did not follow up. I explained this to the son who I am not sure understands everything that she needs close followup. She has a stent that is not functioning and now presents for followup. DESCRIPTION OF PROCEDURE: The patient was brought to the operating room and placed on the operating table. Following induction of anesthesia, placed in lithotomy position, prepped and draped in usual sterile fashion. Cystourethroscopy showed the stent with lots of debris around it. There was some inflammation around it. The stent was extracted. No wire could get passed up through the stent because it was totally occluded. The stent was withdrawn under fluoroscopic guidance without much difficulty. We then placed an open-ended catheter and a Glidewire coiled in the kidney. No balloon dilatation was carried out. The kidney was emptied with an open-ended syringe and we got into the lower pole where we saw this large stone. The stone was well seen after we emptied out the collecting system and laser was carried out at 10-12 gay. The patient tolerated the procedure well. No significant complication. Stone was broken into about 6-7 pieces. We replaced the 7-Hebrew in the upper pole and then it came down into the renal pelvis, which was bifid. The patient tolerated the procedure well. We did not leave a string. She is too confused. She will pull it out. We left the [place] as well to make sure she is well drained. I explained this to her son as best as I could, brought to recovery in stable condition. JOB# [id number] VIKY/ARYA
--- NOTE | 2016-09-10 13:55 | Fluoroscopy Report ---
HISTORY: Left renal stone. FINDINGS: 7 fluoroscopic images were captured by urology during retrograde urography. The images demonstrate removal of a left renal stone using ureteroscopy and exchange of a left renal stent which is in good position on the final image. The right pyelogram was not performed. Please correlate with the procedural report by Dr. Moses.
--- NOTE | 2016-09-10 14:18 | Post Anesthesia Evaluation ---
- Post Anesthesia Evaluation Patient Participated: Yes Airway Patent: Yes Stable Respiratory Function: Yes Nausea/Vomiting: No Temp > 96.8F: Yes Pain Manageable: Yes Adequeate Hydration: Yes Anesthesia Complications: No Block Receding Appropriately: Not Applicable Patient on Ventilator: No
[2016-09-10] MEDS: NORVASC PO SCH (17:40)
[2016-09-10] MEDS: LASIX PO SCH (17:40)
[2016-09-10] MEDS: PROTONIX PO SCH (17:41)
--- NOTE | 2016-09-10 20:03 | Gastroenterology Progress Note ---
Assessment and Plan - Patient Problems (1) Anemia Current Visit: Yes Status: Acute Plan to address problem: - I am concerned with her lethargy and use of anaesthesia today, as well as dysphagia, that a GI prep may not be advisable. - Will schedule an EGD tomorrow; if no obstructing lesion seen, will plan colonoscopy on 09/12. Subjective Date of service: 09/10/16 Principal diagnosis: Anemia Interval history: The patient underwent a ureteral stent exchange (see notes) today and did relatively well with anaesthesia, though she is still somewhat lethargic. She was able to tolerate a full liquid diet. No blood in her stool (and occult blood test was negative). Objective - Constitutional Vitals: Temp Pulse Resp BP Pulse Ox 97.6 F 76 18 124/56 97 09/10/16 17:00 09/10/16 17:00 09/10/16 17:00 09/10/16 17:00 09/10/16 17:00 General appearance: no acute distress - EENT Eyes: PERRL - Respiratory Respiratory effort: normal Respiratory: bilateral: CTA - Cardiovascular Rhythm: regular Heart Sounds: Present: S1 & S2 - Gastrointestinal General gastrointestinal: Present: soft, non-tender, non-distended - Labs CBC & Chem 7: 09/09/16 04:29 09/09/16 04:29 Labs: Laboratory Results - last 24 hr 09/09/16 09/10/16 09/10/16 22:16 06:25 12:58 POC Glucose 111 H 124 H 167 H Blood Type Antibody Screen 09/10/16 09/10/16 15:01 17:25 POC Glucose 163 H Blood Type B POSITIVE Antibody Screen Negative
[2016-09-10] MEDS: LEVEMIR SUB-Q SCH (22:26)
[2016-09-10] MEDS: TYLENOL PO PRN ×2 (22:30→22:45)
--- NOTE | 2016-09-11 09:12 | Progress Note ---
Addendum entered and electronically signed by LIZA MELO MD 11:26: Agree with Mrs Nichols assessment and plan No further arrhythmias on telemetry No further cardiac intervention is planned Stable postoperatively Will sign off Please call again if needed Original Note: Assessment and Plan Anemia with a trending down hemoglobin Patient did complain of black stools on admission GI planning endoscopy - plavix has been stopped 09/07/2016 Bilateral nephrolithiasis s/p ureteral stent exchange Non-sustained ventricular tachycardia (1 episode) - asymptomatic Normal LVEF by echocardiogram this admission Hx of CAD s/p remote PCI in [place] (unknown anatomy) Son reports a recent outpatient stress test as normal (location of the stress test is not known) Acute on chronic renal disease - improving Dementia Recommendations: Continue low dose metoprolol. Cardiac status is stable. Subjective Date of service: 09/11/16 Principal diagnosis: Anemia Interval history: Patient has no complaints. No cardiac events overnight. Objective Vital Signs Temp Pulse Pulse Resp Resp BP BP 09/11/16 08:29 98.1 F 60 20 115/56 09/11/16 00:00 98.3 F 69 18 126/69 09/10/16 22:45 16 09/10/16 22:24 72 127/60 09/10/16 22:23 72 127/60 09/10/16 22:00 18 09/10/16 20:00 97.9 F 68 20 127/66 09/10/16 17:00 97.6 F 76 18 124/56 09/10/16 15:08 97.6 F 83 14 132/65 09/10/16 14:30 97.4 F L 79 12 117/51 09/10/16 14:15 72 12 117/51 09/10/16 14:00 73 12 130/57 09/10/16 13:45 78 10 L 130/59 09/10/16 13:30 78 10 L 109/62 09/10/16 13:15 77 10 L 118/57 09/10/16 13:05 82 10 L 128/61 09/10/16 13:00 84 16 132/59 09/10/16 12:55 94 H 16 140/66 09/10/16 12:52 97.4 F L 92 H 20 147/65 09/10/16 11:05 98.1 F 69 18 130/55 09/10/16 10:05 98.1 F 69 18 130/55 Pulse Ox 09/11/16 08:29 100 09/11/16 00:00 09/10/16 22:45 09/10/16 22:24 09/10/16 22:23 09/10/16 22:00 09/10/16 20:00 97 09/10/16 17:00 97 09/10/16 15:08 93 09/10/16 14:30 100 09/10/16 14:15 100 09/10/16 14:00 100 09/10/16 13:45 99 09/10/16 13:30 99 09/10/16 13:15 99 09/10/16 13:05 98 09/10/16 13:00 97 09/10/16 12:55 96 09/10/16 12:52 96 09/10/16 11:05 96 09/10/16 10:05 96 - Physical Examination General: No Apparent Distress HEENT: Positive: PERRL Neck: Positive: neck supple Cardiac: Positive: Reg Rate and Rhythm Extremities: Absent: edema - Imaging and Cardiology EKG: image reviewed
[2016-09-11] MEDS: NACL 0.45% 1000 ML 1,000 ML IV SCH (10:05)
[2016-09-11] MEDS ORDERED: WATER FOR IRRIG STERILE IR ONE (10:18)
[2016-09-11] MEDS ORDERED: DIPRIVAN 10 MG/ML IV ONE ×2 (10:33)
[2016-09-11] MEDS ORDERED: XYLOCAINE MPF 2% ONE (10:34)
--- NOTE | 2016-09-11 10:39 | Anesthesia Day of Surgery ---
Anesthesia Day of Surgery - Day of Surgery Patient Examined: Yes Patient H&P Reviewed: Yes Patient is NPO: Yes Beta Blockers: No (Held) Cardiac Clearance: Yes (Card Following)
--- NOTE | 2016-09-11 10:56 | Operative Report ---
Operative Report Operative Report: Date of procedure: 09/11/2016 Procedure: Esophagogastroduodenoscopy Preprocedure diagnosis: Iron deficiency anemia Post procedure diagnosis: Normal study Endoscopist: Dr. Kelley Anesthesia: Monitored anesthesia care per anesthesia department Medications: Propofol per anesthesia Estimated blood loss: 0 After careful discussion of the nature and purpose of the procedure as well as details the technique risks benefits and alternatives consent was obtained. The patient was placed in the left lateral decubitus position and medicated per anesthesia. The tip of the Wellbe EQ 570 video scope was passed per orum under direct vision into the esophagus and advanced into the stomach and descending duodenum. The descending duodenum the duodenal bulb and pylorus were symmetrical and normal. The scope was withdrawn into the stomach and the stomach then gently insufflated with air. The antrum was normal. The stomach was further insufflated and the scope was then retroflexed and partially withdrawn. The cardia, fundus, and body of the stomach were within normal limits and easily distensible.The scope was then withdrawn in the forward position. The esophagogastric junction was at 37 cm. The esophageal body was normal throughout. The procedure was was well tolerated and the patient was observed in recovery. Impressions: Normal-appearing upper digestive tract. Plan: Consider colonoscopy if the patient is suitable and other medical respects versus conservative care in light of her age and dementia. Will discuss with her son Electronically signed: Lawrence Kelley MD
--- NOTE | 2016-09-11 11:02 | Event Note ---
Date: 09/11/16 EGD revealed a normal UGI tract. The son was informed and I discussed the possibility of colonoscopy for further evaluation, if she is cleared medically. He is undecided as of the present conversation and will discuss with the medical team and my colleague again tomorrow. Will advance to clears today to keep options open.
[2016-09-11] MEDS: CATAPRES PO SCH ×2 (11:09→22:53)
[2016-09-11] MEDS: APRESOLINE PO SCH ×3 (11:09→20:05)
[2016-09-11] MEDS: NEURONTIN PO SCH ×2 (11:10→22:52)
[2016-09-11] MEDS: LOPRESSOR PO SCH ×2 (11:10→22:53)
[2016-09-11] MEDS: NORVASC PO SCH (11:10)
[2016-09-11] MEDS: LASIX PO SCH (11:10)
[2016-09-11] MEDS: NOVOLOG SUB-Q SCH (11:10)
[2016-09-11] MEDS: ROCEPHIN/NS 1 GM/50 ML 50 ML IV SCH (11:11)
[2016-09-11] MEDS: PROTONIX PO SCH (11:11)
--- NOTE | 2016-09-11 11:39 | Event Note ---
Date: 09/11/16 The son has now decided he would like his mother to have colonoscopy tomorrow. Will therefore prep today and schedule colonoscopy for tomorrow with Dr. Handley. The details of the procedure, risks, benefits and alternatives were discussed at length.
--- NOTE | 2016-09-11 11:46 | Progress Note ---
Assessment and Plan Assessment and plan: Patient is a 81 YO woman with a history of HTN, TIA, CHF, DM, OA, CAD S/P Stent Placement presents presented with Melena, Acute blood loss anemia, hypovolemia and hypotension Melena, Acute blood loss anemia continue to hold plavix, GI input appreciated, transfuse as needed; sp EGD 09/11- normal appearing UGI For c-scope 09/12 Acute kidney injury likely secondary to vasomotor nephropathy Resolved with hydration Bilateral nephrolithiasis s/p cysto and Stent exchange 09/10/16 CAD; cardiology input appreciated "Continue low dose metoprolol Cardiac risk index for non-cardiac surgery: Perioperative Risk is high but is not prohibitive (discussed with son) Regional anesthesia is preferable over general anesthesia Avoid wide fluctuation in blood pressure during procedure" Hypotension likely secondary to volume contraction resolved with IV hydration Diabetes mellitus continue insulins Dementia- supportive care History Interval history: no melena overnight, no events Hospitalist Physical - Physical exam Narrative exam: GEN: frial, deconditioned, NAD, AWAKE, ALERT, ORIENTATED HEENT: NCAT, PERRL, EOMI, OP CLEAR NECK: SUPPLE, NO THYROMEGALY, NO JVD, NO LAD CVS: RRR, NORMAL S1S2 LUNGS/CHEST: CTA B, NORMAL CHEST EXPANSION B, GOOD AIR ENTRY B ABD: SOFT NTND, GBS, NO REBOUND OR GUARDING EXT/SKIN: NO SIGNIFICANT EDEMA OR RASH MSK: FROM X 4 EXTREMITIES NEURO: CN 2-12 GROSSLY INTACT, NO new FOCAL DEFICITS PSY: CALM - Constitutional Vitals: Temp Pulse Resp BP Pulse Ox 97.3 F L 68 14 125/67 96 09/11/16 10:51 09/11/16 11:16 09/11/16 11:16 09/11/16 11:16 09/11/16 11:16 General appearance: Present: no acute distress Results - Labs CBC & Chem 7: 09/09/16 04:29 09/09/16 04:29 Labs: Laboratory Last Values WBC 9.9 K/mm3 (4.5-11.0) 09/09/16 04:29 RBC 2.86 M/mm3 (3.65-5.03) L 09/09/16 04:29 Hgb 8.4 gm/dl (10.1-14.3) L 09/09/16 04:29 Hct 24.8 % (30.3-42.9) L 09/09/16 04:29 MCV 87 fl (79-97) 09/09/16 04:29 MCH 29 pg (28-32) 09/09/16 04:29 MCHC 34 % (30-34) 09/09/16 04:29 RDW 18.6 % (13.2-15.2) H 09/09/16 04:29 Plt Count 266 K/mm3 (140-440) 09/09/16 04:29 Lymph % (Auto) 22.8 % (13.4-35.0) 09/06/16 05:01 [place] % (Auto) 9.8 % (0.0-7.3) H 09/06/16 05:01 Eos % (Auto) 1.5 % (0.0-4.3) 09/06/16 05:01 Baso % (Auto) 0.7 % (0.0-1.8) 09/06/16 05:01 Lymph # 2.8 K/mm3 (1.2-5.4) 09/06/16 05:01 [place] # 1.2 K/mm3 (0.0-0.8) H 09/06/16 05:01 Eos # 0.2 K/mm3 (0.0-0.4) 09/06/16 05:01 Baso # 0.1 K/mm3 (0.0-0.1) 09/06/16 05:01 Seg Neutrophils % 65.2 % (40.0-70.0) 09/06/16 05:01 Seg Neutrophils # 8.0 K/mm3 (1.8-7.7) H 09/06/16 05:01 PT 14.1 Sec. (12.2-14.9) 09/04/16 16:31 INR 1.10 (0.87-1.13) 09/04/16 16:31 APTT 27.0 Sec. (24.2-36.6) 09/04/16 16:31 D-Dimer 402.80 ng/mlDDU (0-234) H 09/05/16 01:03 Sodium 141 mmol/L (137-145) 09/09/16 04:29 Potassium 3.8 mmol/L (3.6-5.0) 09/09/16 04:29 Chloride 109.7 mmol/L (98-107) H 09/09/16 04:29 Carbon Dioxide 21 mmol/L (22-30) L 09/09/16 04:29 Anion Gap 14 mmol/L 09/09/16 04:29 BUN 21 mg/dL (7-17) H 09/09/16 04:29 Creatinine 1.2 mg/dL (0.7-1.2) 09/09/16 04:29 Estimated GFR 52 ml/min 09/09/16 04:29 BUN/Creatinine Ratio 17.50 % 09/09/16 04:29 Glucose 112 mg/dL (65-100) H 09/09/16 04:29 POC Glucose 112 (70-105) H 09/11/16 06:24 Lactic Acid 1.6 mmol/L (0.7-2.0) 09/04/16 22:10 Calcium 8.4 mg/dL (8.4-10.2) 09/09/16 04:29 Magnesium 2.0 mg/dL (1.7-2.3) 09/08/16 00:51 Iron 22 ug/dL (37-170) L 09/07/16 04:29 TIBC 256 mcg/dL (250-450) 09/07/16 04:29 Ferritin 285.1 ng/mL (13.0-400.0) 09/07/16 20:00 Total Bilirubin 0.3 mg/dL (0.1-1.2) 09/04/16 17:14 Direct Bilirubin < 0.2 mg/dL (0-0.2) 09/04/16 17:14 Indirect Bilirubin 0.1 mg/dL 09/04/16 17:14 AST 12 units/L (5-40) 09/04/16 17:14 ALT 8 units/L (7-56) 09/04/16 17:14 Alkaline Phosphatase 74 units/L (35-129) 09/04/16 17:14 Total Creatine Kinase 92 units/L (30-135) 09/05/16 17:18 CK-MB (CK-2) 5.2 ng/mL (0.0-4.0) H 09/05/16 17:18 CK-MB (CK-2) Rel Index 5.6 (0-4) H 09/05/16 17:18 Troponin T 0.025 ng/mL (0.00-0.029) 09/05/16 17:18 Total Protein 6.2 g/dL (6.3-8.2) L 09/04/16 17:14 Albumin 3.0 g/dL (3.9-5) L 09/04/16 17:14 Albumin/Globulin Ratio 0.9 % 09/04/16 17:14 Triglycerides 200 mg/dL (2-149) H 09/04/16 16:31 Cholesterol 131 mg/dL (50-199) 09/04/16 16:31 LDL Cholesterol Direct 58 mg/dL (50-130) 09/04/16 16:31 HDL Cholesterol 33 mg/dL (40-59) L 09/04/16 16:31 Cholesterol/HDL Ratio 3.96 % 09/04/16 16:31 TSH 2.530 mlU/mL (0.270-4.200) 09/04/16 17:14 Free T4 1.11 ng/dL (0.76-1.46) 09/04/16 17:14 Urine Color Yellow (Yellow) 09/04/16 00:12 Urine Turbidity Cloudy (Clear) 09/04/16 00:12 Urine pH 5.0 (5.0-7.0) 09/04/16 00:12 Ur Specific [place] 1.011 (1.003-1.030) 09/04/16 00:12 Urine Protein 100 mg/dl mg/dL (Negative) 09/04/16 00:12 Urine Glucose (UA) Neg mg/dL (Negative) 09/04/16 00:12 Urine Ketones Tr mg/dL (Negative) 09/04/16 00:12 Urine Blood Mod (Negative) 09/04/16 00:12 Urine Nitrite Neg (Negative) 09/04/16 00:12 Urine Bilirubin Neg (Negative) 09/04/16 00:12 Urine Urobilinogen < 2.0 mg/dL (<2.0) 09/04/16 00:12 Ur Leukocyte Esterase Lg (Negative) 09/04/16 00:12 Urine WBC (Auto) > 182.0 /HPF (0.0-6.0) H 09/04/16 00:12 Urine RBC (Auto) 177.0 /HPF (0.0-6.0) 09/04/16 00:12 Urine Bacteria (Auto) 2+ /HPF (Negative) 09/04/16 00:12 Urine WBC Clumps 3+ /HPF 09/04/16 00:12 Amorphous Crystals Few 09/04/16 00:12 Hyaline Casts 4 /LPF 09/04/16 00:12 Urine Mucus Few /HPF 09/04/16 00:12 Urine Yeast (Budding) Few /HPF 09/04/16 00:12 Blood Type B POSITIVE 09/10/16 17:25 Antibody Screen Negative 09/10/16 17:25
--- NOTE | 2016-09-11 12:25 | Post Anesthesia Evaluation ---
- Post Anesthesia Evaluation Patient Participated: Yes Airway Patent: Yes Stable Respiratory Function: Yes Nausea/Vomiting: No Temp > 96.8F: Yes Pain Manageable: Yes Adequeate Hydration: Yes Anesthesia Complications: No
--- NOTE | 2016-09-11 14:09 | Progress Note ---
Assessment and Plan Assessment and plan: Patient is a 81 YO woman with a history of HTN, TIA, CHF, DM, OA, CAD S/P Stent Placement presents presented with Melena, Acute blood loss anemia, hypovolemia and hypotension Melena, Acute blood loss anemia continue to hold plavix, GI input appreciated, transfuse as needed; sp EGD 09/11- normal appearing UGI For c-scope 09/12 Acute kidney injury likely secondary to vasomotor nephropathy Resolved with hydration Bilateral nephrolithiasis s/p cysto and Stent exchange 09/10/16 home with margaret LAM; cardiology input appreciated "Continue low dose metoprolol Cardiac risk index for non-cardiac surgery: Perioperative Risk is high but is not prohibitive (discussed with son) Regional anesthesia is preferable over general anesthesia Avoid wide fluctuation in blood pressure during procedure" Hypotension likely secondary to volume contraction resolved with IV hydration Diabetes mellitus continue insulins Dementia- supportive care History Interval history: no melena overnight, no events Hospitalist Physical - Physical exam Narrative exam: GEN: frial, deconditioned, NAD, AWAKE, ALERT, ORIENTATED HEENT: NCAT, PERRL, EOMI, OP CLEAR NECK: SUPPLE, NO THYROMEGALY, NO JVD, NO LAD CVS: RRR, NORMAL S1S2 LUNGS/CHEST: CTA B, NORMAL CHEST EXPANSION B, GOOD AIR ENTRY B ABD: SOFT NTND, GBS, NO REBOUND OR GUARDING EXT/SKIN: NO SIGNIFICANT EDEMA OR RASH MSK: FROM X 4 EXTREMITIES NEURO: CN 2-12 GROSSLY INTACT, NO new FOCAL DEFICITS PSY: CALM - Constitutional Vitals: Temp Pulse Resp BP Pulse Ox 97.9 F 64 20 131/62 96 09/11/16 12:28 09/11/16 12:28 09/11/16 12:28 09/11/16 12:28 09/11/16 11:16 General appearance: Present: no acute distress Results - Labs CBC & Chem 7: 09/11/16 14:48 09/11/16 14:48 Labs: Laboratory Last Values WBC 9.9 K/mm3 (4.5-11.0) 09/09/16 04:29 RBC 2.86 M/mm3 (3.65-5.03) L 09/09/16 04:29 Hgb 8.4 gm/dl (10.1-14.3) L 09/09/16 04:29 Hct 24.8 % (30.3-42.9) L 09/09/16 04:29 MCV 87 fl (79-97) 09/09/16 04:29 MCH 29 pg (28-32) 09/09/16 04:29 MCHC 34 % (30-34) 09/09/16 04:29 RDW 18.6 % (13.2-15.2) H 09/09/16 04:29 Plt Count 266 K/mm3 (140-440) 09/09/16 04:29 Lymph % (Auto) 22.8 % (13.4-35.0) 09/06/16 05:01 [place] % (Auto) 9.8 % (0.0-7.3) H 09/06/16 05:01 Eos % (Auto) 1.5 % (0.0-4.3) 09/06/16 05:01 Baso % (Auto) 0.7 % (0.0-1.8) 09/06/16 05:01 Lymph # 2.8 K/mm3 (1.2-5.4) 09/06/16 05:01 [place] # 1.2 K/mm3 (0.0-0.8) H 09/06/16 05:01 Eos # 0.2 K/mm3 (0.0-0.4) 09/06/16 05:01 Baso # 0.1 K/mm3 (0.0-0.1) 09/06/16 05:01 Seg Neutrophils % 65.2 % (40.0-70.0) 09/06/16 05:01 Seg Neutrophils # 8.0 K/mm3 (1.8-7.7) H 09/06/16 05:01 PT 14.1 Sec. (12.2-14.9) 09/04/16 16:31 INR 1.10 (0.87-1.13) 09/04/16 16:31 APTT 27.0 Sec. (24.2-36.6) 09/04/16 16:31 D-Dimer 402.80 ng/mlDDU (0-234) H 09/05/16 01:03 Sodium 141 mmol/L (137-145) 09/09/16 04:29 Potassium 3.8 mmol/L (3.6-5.0) 09/09/16 04:29 Chloride 109.7 mmol/L (98-107) H 09/09/16 04:29 Carbon Dioxide 21 mmol/L (22-30) L 09/09/16 04:29 Anion Gap 14 mmol/L 09/09/16 04:29 BUN 21 mg/dL (7-17) H 09/09/16 04:29 Creatinine 1.2 mg/dL (0.7-1.2) 09/09/16 04:29 Estimated GFR 52 ml/min 09/09/16 04:29 BUN/Creatinine Ratio 17.50 % 09/09/16 04:29 Glucose 112 mg/dL (65-100) H 09/09/16 04:29 POC Glucose 110 (70-105) H 09/11/16 12:03 Lactic Acid 1.6 mmol/L (0.7-2.0) 09/04/16 22:10 Calcium 8.4 mg/dL (8.4-10.2) 09/09/16 04:29 Magnesium 2.0 mg/dL (1.7-2.3) 09/08/16 00:51 Iron 22 ug/dL (37-170) L 09/07/16 04:29 TIBC 256 mcg/dL (250-450) 09/07/16 04:29 Ferritin 285.1 ng/mL (13.0-400.0) 09/07/16 20:00 Total Bilirubin 0.3 mg/dL (0.1-1.2) 09/04/16 17:14 Direct Bilirubin < 0.2 mg/dL (0-0.2) 09/04/16 17:14 Indirect Bilirubin 0.1 mg/dL 09/04/16 17:14 AST 12 units/L (5-40) 09/04/16 17:14 ALT 8 units/L (7-56) 09/04/16 17:14 Alkaline Phosphatase 74 units/L (35-129) 09/04/16 17:14 Total Creatine Kinase 92 units/L (30-135) 09/05/16 17:18 CK-MB (CK-2) 5.2 ng/mL (0.0-4.0) H 09/05/16 17:18 CK-MB (CK-2) Rel Index 5.6 (0-4) H 09/05/16 17:18 Troponin T 0.025 ng/mL (0.00-0.029) 09/05/16 17:18 Total Protein 6.2 g/dL (6.3-8.2) L 09/04/16 17:14 Albumin 3.0 g/dL (3.9-5) L 09/04/16 17:14 Albumin/Globulin Ratio 0.9 % 09/04/16 17:14 Triglycerides 200 mg/dL (2-149) H 09/04/16 16:31 Cholesterol 131 mg/dL (50-199) 09/04/16 16:31 LDL Cholesterol Direct 58 mg/dL (50-130) 09/04/16 16:31 HDL Cholesterol 33 mg/dL (40-59) L 09/04/16 16:31 Cholesterol/HDL Ratio 3.96 % 09/04/16 16:31 TSH 2.530 mlU/mL (0.270-4.200) 09/04/16 17:14 Free T4 1.11 ng/dL (0.76-1.46) 09/04/16 17:14 Urine Color Yellow (Yellow) 09/04/16 00:12 Urine Turbidity Cloudy (Clear) 09/04/16 00:12 Urine pH 5.0 (5.0-7.0) 09/04/16 00:12 Ur Specific Lik[place] 1.011 (1.003-1.030) 09/04/16 00:12 Urine Protein 100 mg/dl mg/dL (Negative) 09/04/16 00:12 Urine Glucose (UA) Neg mg/dL (Negative) 09/04/16 00:12 Urine Ketones Tr mg/dL (Negative) 09/04/16 00:12 Urine Blood Mod (Negative) 09/04/16 00:12 Urine Nitrite Neg (Negative) 09/04/16 00:12 Urine Bilirubin Neg (Negative) 09/04/16 00:12 Urine Urobilinogen < 2.0 mg/dL (<2.0) 09/04/16 00:12 Ur Leukocyte Esterase Lg (Negative) 09/04/16 00:12 Urine WBC (Auto) > 182.0 /HPF (0.0-6.0) H 09/04/16 00:12 Urine RBC (Auto) 177.0 /HPF (0.0-6.0) 09/04/16 00:12 Urine Bacteria (Auto) 2+ /HPF (Negative) 09/04/16 00:12 Urine WBC Clumps 3+ /HPF 09/04/16 00:12 Amorphous Crystals Few 09/04/16 00:12 Hyaline Casts 4 /LPF 09/04/16 00:12 Urine Mucus Few /HPF 09/04/16 00:12 Urine Yeast (Budding) Few /HPF 09/04/16 00:12 Blood Type B POSITIVE 09/10/16 17:25 Antibody Screen Negative 09/10/16 17:25
[2016-09-11 15:00] LABS: Hematocrit 27.4 % (30.3-42.9); Mean Corpuscular HGB Conc 33 % (30-34); Mean Corpuscular Hemoglobin 29 pg (28-32); Mean Corpuscular Volume 88 fl (79-97); Platelet Count 322 K/mm3 (140-440); Red Blood Count 3.11 M/mm3 (3.65-5.03); Red Cell Distribution Width 18.3 % (13.2-15.2); White Blood Count 13.8 K/mm3 (4.5-11.0)
[2016-09-11 15:25] LABS: Blood Urea Nitrogen 14 mg/dL (7-17); Calcium 8.8 mg/dL (8.4-10.2); Carbon Dioxide 20 mmol/L (22-30); Chloride 107.7 mmol/L (98-107); Glucose 111 mg/dL (65-100); Potassium 3.9 mmol/L (3.6-5.0); Sodium 141 mmol/L (137-145)
[2016-09-11 15:26] LABS: Anion Gap 17 mmol/L
--- NOTE | 2016-09-11 15:26 | Progress Note ---
Assessment and Plan clinicallly looks better home with robles and stent when cleared medically Subjective Date of service: 09/11/16 Principal diagnosis: Anemia Objective - Constitutional Vitals: Vital Signs - 12hr 09/11/16 09/11/16 09/11/16 08:29 09:53 09:58 Temperature 98.1 F 98 F 98 F Pulse Rate 65 65 Pulse Rate [ 60 Left Radial] Respiratory 20 9 L 9 L Rate Blood Pressure 132/56 132/56 Blood Pressure 115/56 [Left Arm] O2 Sat by Pulse 100 100 100 Oximetry 09/11/16 09/11/16 09/11/16 10:51 11:01 11:16 Temperature 97.3 F L Pulse Rate 67 68 68 Pulse Rate [ Left Radial] Respiratory 14 13 14 Rate Blood Pressure 113/36 135/71 125/67 Blood Pressure [Left Arm] O2 Sat by Pulse 99 96 96 Oximetry 09/11/16 12:28 Temperature 97.9 F Pulse Rate Pulse Rate [ 64 Left Radial] Respiratory 20 Rate Blood Pressure Blood Pressure 131/62 [Left Arm] O2 Sat by Pulse Oximetry General appearance: Present: no acute distress - Respiratory Respiratory effort: normal Extremities: no ischemia - Gastrointestinal General gastrointestinal: Present: soft, non-distended - Labs CBC & Chem 7: 09/11/16 14:48 09/09/16 04:29 Labs: Abnormal lab results 09/10/16 09/10/16 09/11/16 Range/Units 15:01 21:18 06:24 WBC (4.5-11.0) K/mm3 RBC (3.65-5.03) M/mm3 Hgb (10.1-14.3) gm/dl Hct (30.3-42.9) % RDW (13.2-15.2) % POC Glucose 163 H 131 H 112 H (70-105) 09/11/16 09/11/16 Range/Units 12:03 14:48 WBC 13.8 H (4.5-11.0) K/mm3 RBC 3.11 L (3.65-5.03) M/mm3 Hgb 9.0 L (10.1-14.3) gm/dl Hct 27.4 L (30.3-42.9) % RDW 18.3 H (13.2-15.2) % POC Glucose 110 H (70-105)
[2016-09-11] MEDS ORDERED: GOLYTELY PO ONE (18:00)
[2016-09-11] MEDS: GARAMYCIN/NS 80 MG/100 ML 100 ML IV SCH ×3 (20:05→20:33)
[2016-09-11] MEDS: LEVEMIR SUB-Q SCH (22:56)
[2016-09-12] MEDS: GARAMYCIN/NS 80 MG/100 ML 100 ML IV SCH (03:01)
--- NOTE | 2016-09-12 07:57 | Progress Note ---
Assessment and Plan Assessment and plan: Patient is a 81 YO woman with a history of HTN, TIA, CHF, DM, OA, CAD S/P Stent Placement presents presented with Melena, Acute blood loss anemia, hypovolemia and hypotension Melena, Acute blood loss anemia continue to hold plavix, GI input appreciated, transfuse as needed; sp EGD 09/11- normal appearing UGI For c-scope today, but inadequate prep, so will re-prep and do cscope on 09/13 Acute kidney injury likely secondary to vasomotor nephropathy Resolved with hydration Bilateral nephrolithiasis s/p cysto and Stent exchange 09/10/16 home with margaret LAM; cardiology input appreciated "Continue low dose metoprolol Cardiac risk index for non-cardiac surgery: Perioperative Risk is high but is not prohibitive (discussed with son) Regional anesthesia is preferable over general anesthesia Avoid wide fluctuation in blood pressure during procedure" Hypotension likely secondary to volume contraction resolved with IV hydration Diabetes mellitus continue insulins Dementia- supportive care History Interval history: no melena overnight, no events, after drinking most of Bowel prep still having brown solid stools Hospitalist Physical - Physical exam Narrative exam: GEN: frial, deconditioned, NAD, AWAKE, ALERT, ORIENTATED HEENT: NCAT, PERRL, EOMI, OP CLEAR NECK: SUPPLE, NO THYROMEGALY, NO JVD, NO LAD CVS: RRR, NORMAL S1S2 LUNGS/CHEST: CTA B, NORMAL CHEST EXPANSION B, GOOD AIR ENTRY B ABD: SOFT NTND, GBS, NO REBOUND OR GUARDING EXT/SKIN: NO SIGNIFICANT EDEMA OR RASH MSK: FROM X 4 EXTREMITIES NEURO: CN 2-12 GROSSLY INTACT, NO new FOCAL DEFICITS PSY: CALM - Constitutional Vitals: Temp Pulse Resp BP Pulse Ox 98.2 F 63 16 129/59 99 09/12/16 07:08 09/12/16 07:08 09/12/16 07:08 09/12/16 07:08 09/12/16 07:08 General appearance: Present: no acute distress Results - Labs CBC & Chem 7: 09/11/16 14:48 09/13/16 15:44 Labs: Laboratory Last Values WBC 13.8 K/mm3 (4.5-11.0) H 09/11/16 14:48 RBC 3.11 M/mm3 (3.65-5.03) L 09/11/16 14:48 Hgb 9.0 gm/dl (10.1-14.3) L 09/11/16 14:48 Hct 27.4 % (30.3-42.9) L 09/11/16 14:48 MCV 88 fl (79-97) 09/11/16 14:48 MCH 29 pg (28-32) 09/11/16 14:48 MCHC 33 % (30-34) 09/11/16 14:48 RDW 18.3 % (13.2-15.2) H 09/11/16 14:48 Plt Count 322 K/mm3 (140-440) 09/11/16 14:48 Lymph % (Auto) 22.8 % (13.4-35.0) 09/06/16 05:01 [place] % (Auto) 9.8 % (0.0-7.3) H 09/06/16 05:01 Eos % (Auto) 1.5 % (0.0-4.3) 09/06/16 05:01 Baso % (Auto) 0.7 % (0.0-1.8) 09/06/16 05:01 Lymph # 2.8 K/mm3 (1.2-5.4) 09/06/16 05:01 [place] # 1.2 K/mm3 (0.0-0.8) H 09/06/16 05:01 Eos # 0.2 K/mm3 (0.0-0.4) 09/06/16 05:01 Baso # 0.1 K/mm3 (0.0-0.1) 09/06/16 05:01 Seg Neutrophils % 65.2 % (40.0-70.0) 09/06/16 05:01 Seg Neutrophils # 8.0 K/mm3 (1.8-7.7) H 09/06/16 05:01 PT 14.1 Sec. (12.2-14.9) 09/04/16 16:31 INR 1.10 (0.87-1.13) 09/04/16 16:31 APTT 27.0 Sec. (24.2-36.6) 09/04/16 16:31 D-Dimer 402.80 ng/mlDDU (0-234) H 09/05/16 01:03 Sodium 141 mmol/L (137-145) 09/11/16 14:48 Potassium 3.9 mmol/L (3.6-5.0) 09/11/16 14:48 Chloride 107.7 mmol/L (98-107) H 09/11/16 14:48 Carbon Dioxide 20 mmol/L (22-30) L 09/11/16 14:48 Anion Gap 17 mmol/L 09/11/16 14:48 BUN 14 mg/dL (7-17) 09/11/16 14:48 Creatinine 1.0 mg/dL (0.7-1.2) 09/11/16 14:48 Estimated GFR > 60 ml/min 09/11/16 14:48 BUN/Creatinine Ratio 14.00 % 09/11/16 14:48 Glucose 111 mg/dL (65-100) H 09/11/16 14:48 POC Glucose 114 (70-105) H 09/12/16 06:21 Lactic Acid 1.6 mmol/L (0.7-2.0) 09/04/16 22:10 Calcium 8.8 mg/dL (8.4-10.2) 09/11/16 14:48 Magnesium 2.0 mg/dL (1.7-2.3) 09/08/16 00:51 Iron 22 ug/dL (37-170) L 09/07/16 04:29 TIBC 256 mcg/dL (250-450) 09/07/16 04:29 Ferritin 285.1 ng/mL (13.0-400.0) 09/07/16 20:00 Total Bilirubin 0.3 mg/dL (0.1-1.2) 09/04/16 17:14 Direct Bilirubin < 0.2 mg/dL (0-0.2) 09/04/16 17:14 Indirect Bilirubin 0.1 mg/dL 09/04/16 17:14 AST 12 units/L (5-40) 09/04/16 17:14 ALT 8 units/L (7-56) 09/04/16 17:14 Alkaline Phosphatase 74 units/L (35-129) 09/04/16 17:14 Total Creatine Kinase 92 units/L (30-135) 09/05/16 17:18 CK-MB (CK-2) 5.2 ng/mL (0.0-4.0) H 09/05/16 17:18 CK-MB (CK-2) Rel Index 5.6 (0-4) H 09/05/16 17:18 Troponin T 0.025 ng/mL (0.00-0.029) 09/05/16 17:18 Total Protein 6.2 g/dL (6.3-8.2) L 09/04/16 17:14 Albumin 3.0 g/dL (3.9-5) L 09/04/16 17:14 Albumin/Globulin Ratio 0.9 % 09/04/16 17:14 Triglycerides 200 mg/dL (2-149) H 09/04/16 16:31 Cholesterol 131 mg/dL (50-199) 09/04/16 16:31 LDL Cholesterol Direct 58 mg/dL (50-130) 09/04/16 16:31 HDL Cholesterol 33 mg/dL (40-59) L 09/04/16 16:31 Cholesterol/HDL Ratio 3.96 % 09/04/16 16:31 TSH 2.530 mlU/mL (0.270-4.200) 09/04/16 17:14 Free T4 1.11 ng/dL (0.76-1.46) 09/04/16 17:14 Urine Color Yellow (Yellow) 09/04/16 00:12 Urine Turbidity Cloudy (Clear) 09/04/16 00:12 Urine pH 5.0 (5.0-7.0) 09/04/16 00:12 Ur Specific [place] 1.011 (1.003-1.030) 09/04/16 00:12 Urine Protein 100 mg/dl mg/dL (Negative) 09/04/16 00:12 Urine Glucose (UA) Neg mg/dL (Negative) 09/04/16 00:12 Urine Ketones Tr mg/dL (Negative) 09/04/16 00:12 Urine Blood Mod (Negative) 09/04/16 00:12 Urine Nitrite Neg (Negative) 09/04/16 00:12 Urine Bilirubin Neg (Negative) 09/04/16 00:12 Urine Urobilinogen < 2.0 mg/dL (<2.0) 09/04/16 00:12 Ur Leukocyte Esterase Lg (Negative) 09/04/16 00:12 Urine WBC (Auto) > 182.0 /HPF (0.0-6.0) H 09/04/16 00:12 Urine RBC (Auto) 177.0 /HPF (0.0-6.0) 09/04/16 00:12 Urine Bacteria (Auto) 2+ /HPF (Negative) 09/04/16 00:12 Urine WBC Clumps 3+ /HPF 09/04/16 00:12 Amorphous Crystals Few 09/04/16 00:12 Hyaline Casts 4 /LPF 09/04/16 00:12 Urine Mucus Few /HPF 09/04/16 00:12 Urine Yeast (Budding) Few /HPF 09/04/16 00:12 Blood Type B POSITIVE 09/10/16 17:25 Antibody Screen Negative 09/10/16 17:25
[2016-09-12] MEDS: APRESOLINE PO SCH ×3 (08:08→22:33)
[2016-09-12] MEDS: ROCEPHIN/NS 1 GM/50 ML 50 ML IV SCH (09:50)
[2016-09-12] MEDS: NEURONTIN PO SCH ×2 (09:51→22:23)
[2016-09-12] MEDS: PROTONIX PO SCH (09:51)
[2016-09-12] MEDS: LASIX PO SCH (09:51)
[2016-09-12] MEDS: NORVASC PO SCH (09:52)
[2016-09-12] MEDS: CATAPRES PO SCH ×2 (09:52→22:23)
[2016-09-12] MEDS: LOPRESSOR PO SCH ×2 (09:52→22:24)
[2016-09-12] MEDS: NOVOLOG SUB-Q SCH (10:25)
[2016-09-12] MEDS ORDERED: CITRATE OF MAGNESIA PO ONE (16:24)
--- NOTE | 2016-09-12 16:29 | Gastroenterology Progress Note ---
Assessment and Plan - Patient Problems (1) Anemia Current Visit: Yes Status: Acute Qualifiers: Anemia type: iron deficiency Plan to address problem: - EGD negative. - Colonoscopy tomorrow (inadequate prep today). - Continue to hold plavix and give MVI with iron. Subjective Date of service: 09/12/16 Principal diagnosis: Anemia Interval history: No significant bleeding reported. Has had some small brown BMs with bowel prep but no gross blood. Denies N/V/abdominal pain. Objective - Constitutional Vitals: Temp Pulse Resp BP Pulse Ox 97.6 F 71 16 140/65 96 09/12/16 14:07 09/12/16 14:07 09/12/16 14:07 09/12/16 14:07 09/12/16 14:07 General appearance: no acute distress - Respiratory Respiratory effort: normal Respiratory: bilateral: CTA - Cardiovascular Rhythm: regular Heart Sounds: Present: S1 & S2 - Gastrointestinal General gastrointestinal: Present: soft, non-tender, non-distended - Labs CBC & Chem 7: 09/11/16 14:48 09/11/16 14:48 Labs: Laboratory Results - last 24 hr 09/11/16 09/11/16 09/12/16 16:38 21:48 06:21 POC Glucose 126 H 113 H 114 H
[2016-09-12] MEDS: NACL 0.45% 1000 ML 1,000 ML IV SCH (22:30)
[2016-09-12] MEDS: LEVEMIR SUB-Q SCH (22:31)
[2016-09-13] MEDS ORDERED: WATER FOR IRRIG STERILE ONE (07:32)
[2016-09-13] MEDS ORDERED: WATER FOR IRRIG STERILE IR ONE ×2 (07:32→09:40)
--- NOTE | 2016-09-13 07:43 | Anesthesia Consultation ---
Anesthesia Consult and Med Hx Date of service: 09/13/16 - Airway Anesthetic Teeth Evaluation: Poor (#5 loose, #7 broken, some missing teeth) ROM Head & Neck: Adequate Mental/Hyoid Distance: Adequate Mallampati Class: Class II Intubation Access Assessment: Probably Good - Pre-Operative Health Status ASA Pre-Surgery Classification: ASA4 - Pulmonary Hx Smoking: Yes (1p/d x 40 years) Hx Respiratory Symptoms: Yes (cough with some mucous discharge) Hx Sleep Apnea: No - Cardiovascular System Hx Hypertension: Yes Hx Coronary Artery Disease: Yes (stents) Hx Angina: (h/o CHF) Hx Percutaneous Transluminal Coronary Angioplasty (PTCA): Yes Hx Peripheral Vascular Disease: Yes - Central Nervous System Hx Neuromuscular Disorder: Yes (inability to ambulate lower extremities) Hx Seizures: No CVA: Yes - Gastrointestinal Hx Ulcer: Yes (melena?) - Endocrine Hx Renal Disease: Yes (CKD with ARF 09/04/16, h/o kidney stones) Hx Insulin Dependent Diabetes: Yes (uncontrolled) Hx Hypothyroidism: No (history thyroid nodules) - Hematic Hx Anemia: Yes - Other Systems Hx Alcohol Use: No Hx Substance Use: No Hx Cancer: No - Additional Comments Anesthesia Medical History Comments: Patient presented 09/04/16 in ER with sepsis, ARF, and UTI.
--- NOTE | 2016-09-13 07:46 | Anesthesia Day of Surgery ---
Anesthesia Day of Surgery - Day of Surgery Patient Examined: Yes Patient H&P Reviewed: Yes Patient is NPO: Yes Beta Blockers: No (given 09/12/16 0951: will reassess prior to procedure for b- chyna admin)
[2016-09-13] MEDS ORDERED: DIPRIVAN 10 MG/ML IV ONE ×3 (08:20→10:53)
[2016-09-13] MEDS: NACL 0.45% 1000 ML 1,000 ML IV SCH ×2 (09:04→18:38)
[2016-09-13] MEDS ORDERED: ROBINUL ONE (09:38)
[2016-09-13] MEDS ORDERED: XYLOCAINE MPF 2% ONE (09:38)
[2016-09-13] MEDS ORDERED: NORMODYNE IV ONE (09:44)
--- NOTE | 2016-09-13 10:53 | Post Operative Note ---
Pre-op diagnosis: Anemia Post-op diagnosis: other (Colon polyps, diverticulosis, hemorrhoids) Findings: 1. 2 polyps ascending 2-3mm, hot snare 2. 1 polyp transverse 2mm, hot snare (not retrieved) 3. 1 polyp sigmoid 5mm pedunculated, hot snare (required pediatric scope due to tortuous sigmoid) 4. Severe sigmoid diverticulosis 5. Grade III IH Procedure: Colonoscopy with hot snare polypectomy Anesthesia: MAC Surgeon: JACKIE CUEVA Estimated blood loss: none Pathology: list (1. Ascending colon polyps. 2. Sigmoid colon polyp) Specimen disposition: to lab Condition: stable Disposition: floor (Recs: 1. OK to d/c home. 2. MVI with iron daily. 3. Given hot snare cautery, would hold plavix and ASA/NSAIDs for 7 days. 4. Will sign off; patient may f/u in the clinic for biopsy results.)
--- NOTE | 2016-09-13 11:35 | Operative Report ---
PROCEDURE PERFORMED: Colonoscopy with hot snare polypectomy. PREOPERATIVE DIAGNOSIS: Cryptogenic anemia. POSTOPERATIVE DIAGNOSES: Colon polyps, diverticulosis, and hemorrhoids. ENDOSCOPIST: James Dillon MD INSTRUMENT: [employer] video endoscope. MEDICATIONS: MAC anesthesia by [facility]. COMPLICATIONS: No apparent complications. ESTIMATED BLOOD LOSS: Minimal. SPECIMENS: 1. Ascending colon polyp. 2. Sigmoid colon polyp. IMPLANTS: None. ASSISTANTS: None. CONDITION AT COMPLETION: Stable. TECHNIQUE: The patient was informed of the risks and benefits of the procedure. She signed the informed consent to proceed. She was placed in a left lateral decubitus position. The above sedative medications were given. Her vital signs remained stable throughout the procedure. The instrument was advanced from the anus to the cecum under direct visualization. At that point, the bowel was insufflated and the endoscope was slowly withdrawn. The quality of preparation was fair. There was some semi-solid stool throughout the colon. FINDINGS: 1. Two polyps in the ascending colon, ranging in size from 2 mm to 3 mm, removed with hot snare polypectomy. 2. One polyp in the transverse colon, 2 mm, removed with hot snare polypectomy, but not retrieved due to the presence of stool. 3. One polyp in the sigmoid colon, 5 mm, pedunculated; removed with hot snare, but this required use of the pediatric colonoscope which was exchanged into the case from the regular colonoscope due to the tortuous sigmoid colon from diverticulosis; we used the pediatric colonoscope to give a better angle for removal with a snare device. 4. Severe sigmoid diverticulosis. 5. Grade 3 internal hemorrhoids. RECOMMENDATIONS: 1. Okay to discharge home. 2. Multivitamin with iron daily. 3. Given a hot snare cautery, I would hold aspirin and Plavix for the next 7 days. 4. We will sign off. The patient may follow up in clinic for pathology results. JOB# [id number] JADEN/ARYA
--- NOTE | 2016-09-13 16:11 | Progress Note ---
Assessment and Plan Assessment and plan: Patient is a 81 YO woman with a history of HTN, TIA, CHF, DM, OA, CAD S/P Stent Placement presents presented with Melena, Acute blood loss anemia, hypovolemia and hypotension Melena, Acute blood loss anemia continue to hold plavix, GI input appreciated, transfuse as needed; sp EGD 09/11- normal appearing UGI sp C-scope on 09/13 shows multiple polyps and severe diverticulosis, polyps biopsied, will fup with GI as outpatient for biospy results, and hold plavix for 7 days Acute kidney injury likely secondary to vasomotor nephropathy Resolved with hydration Bilateral nephrolithiasis s/p cysto and Stent exchange 09/10/16 home with robles CAD; cardiology input appreciated "Continue low dose metoprolol Cardiac risk index for non-cardiac surgery: Perioperative Risk is high but is not prohibitive (discussed with son) Regional anesthesia is preferable over general anesthesia Avoid wide fluctuation in blood pressure during procedure" Hypotension likely secondary to volume contraction resolved with IV hydration Diabetes mellitus continue insulins Dementia- supportive care History Interval history: no melena overnight, no events, had bowel prep overnight Hospitalist Physical - Physical exam Narrative exam: GEN: frial, deconditioned, NAD, AWAKE, ALERT, ORIENTATED HEENT: NCAT, PERRL, EOMI, OP CLEAR NECK: SUPPLE, NO THYROMEGALY, NO JVD, NO LAD CVS: RRR, NORMAL S1S2 LUNGS/CHEST: CTA B, NORMAL CHEST EXPANSION B, GOOD AIR ENTRY B ABD: SOFT NTND, GBS, NO REBOUND OR GUARDING EXT/SKIN: NO SIGNIFICANT EDEMA OR RASH MSK: FROM X 4 EXTREMITIES NEURO: CN 2-12 GROSSLY INTACT, NO new FOCAL DEFICITS PSY: CALM - Constitutional Vitals: Temp Pulse Resp BP Pulse Ox 98.4 F 74 16 158/68 98 09/13/16 13:58 09/13/16 13:58 09/13/16 13:58 09/13/16 13:58 09/13/16 13:58 General appearance: Present: no acute distress Results - Labs CBC & Chem 7: 09/11/16 14:48 09/13/16 15:44 Labs: Laboratory Last Values WBC 13.8 K/mm3 (4.5-11.0) H 09/11/16 14:48 RBC 3.11 M/mm3 (3.65-5.03) L 09/11/16 14:48 Hgb 9.0 gm/dl (10.1-14.3) L 09/11/16 14:48 Hct 27.4 % (30.3-42.9) L 09/11/16 14:48 MCV 88 fl (79-97) 09/11/16 14:48 MCH 29 pg (28-32) 09/11/16 14:48 MCHC 33 % (30-34) 09/11/16 14:48 RDW 18.3 % (13.2-15.2) H 09/11/16 14:48 Plt Count 322 K/mm3 (140-440) 09/11/16 14:48 Lymph % (Auto) 22.8 % (13.4-35.0) 09/06/16 05:01 [place] % (Auto) 9.8 % (0.0-7.3) H 09/06/16 05:01 Eos % (Auto) 1.5 % (0.0-4.3) 09/06/16 05:01 Baso % (Auto) 0.7 % (0.0-1.8) 09/06/16 05:01 Lymph # 2.8 K/mm3 (1.2-5.4) 09/06/16 05:01 [place] # 1.2 K/mm3 (0.0-0.8) H 09/06/16 05:01 Eos # 0.2 K/mm3 (0.0-0.4) 09/06/16 05:01 Baso # 0.1 K/mm3 (0.0-0.1) 09/06/16 05:01 Seg Neutrophils % 65.2 % (40.0-70.0) 09/06/16 05:01 Seg Neutrophils # 8.0 K/mm3 (1.8-7.7) H 09/06/16 05:01 PT 14.1 Sec. (12.2-14.9) 09/04/16 16:31 INR 1.10 (0.87-1.13) 09/04/16 16:31 APTT 27.0 Sec. (24.2-36.6) 09/04/16 16:31 D-Dimer 402.80 ng/mlDDU (0-234) H 09/05/16 01:03 Sodium 141 mmol/L (137-145) 09/11/16 14:48 Potassium 3.9 mmol/L (3.6-5.0) 09/11/16 14:48 Chloride 107.7 mmol/L (98-107) H 09/11/16 14:48 Carbon Dioxide 20 mmol/L (22-30) L 09/11/16 14:48 Anion Gap 17 mmol/L 09/11/16 14:48 BUN 14 mg/dL (7-17) 09/11/16 14:48 Creatinine 1.0 mg/dL (0.7-1.2) 09/11/16 14:48 Estimated GFR > 60 ml/min 09/11/16 14:48 BUN/Creatinine Ratio 14.00 % 09/11/16 14:48 Glucose 111 mg/dL (65-100) H 09/11/16 14:48 POC Glucose 115 (70-105) H 09/13/16 05:34 Lactic Acid 1.6 mmol/L (0.7-2.0) 09/04/16 22:10 Calcium 8.8 mg/dL (8.4-10.2) 09/11/16 14:48 Magnesium 2.0 mg/dL (1.7-2.3) 09/08/16 00:51 Iron 22 ug/dL (37-170) L 09/07/16 04:29 TIBC 256 mcg/dL (250-450) 09/07/16 04:29 Ferritin 285.1 ng/mL (13.0-400.0) 09/07/16 20:00 Total Bilirubin 0.3 mg/dL (0.1-1.2) 09/04/16 17:14 Direct Bilirubin < 0.2 mg/dL (0-0.2) 09/04/16 17:14 Indirect Bilirubin 0.1 mg/dL 09/04/16 17:14 AST 12 units/L (5-40) 09/04/16 17:14 ALT 8 units/L (7-56) 09/04/16 17:14 Alkaline Phosphatase 74 units/L (35-129) 09/04/16 17:14 Total Creatine Kinase 92 units/L (30-135) 09/05/16 17:18 CK-MB (CK-2) 5.2 ng/mL (0.0-4.0) H 09/05/16 17:18 CK-MB (CK-2) Rel Index 5.6 (0-4) H 09/05/16 17:18 Troponin T 0.025 ng/mL (0.00-0.029) 09/05/16 17:18 Total Protein 6.2 g/dL (6.3-8.2) L 09/04/16 17:14 Albumin 3.0 g/dL (3.9-5) L 09/04/16 17:14 Albumin/Globulin Ratio 0.9 % 09/04/16 17:14 Triglycerides 200 mg/dL (2-149) H 09/04/16 16:31 Cholesterol 131 mg/dL (50-199) 09/04/16 16:31 LDL Cholesterol Direct 58 mg/dL (50-130) 09/04/16 16:31 HDL Cholesterol 33 mg/dL (40-59) L 09/04/16 16:31 Cholesterol/HDL Ratio 3.96 % 09/04/16 16:31 TSH 2.530 mlU/mL (0.270-4.200) 09/04/16 17:14 Free T4 1.11 ng/dL (0.76-1.46) 09/04/16 17:14 Urine Color Yellow (Yellow) 09/04/16 00:12 Urine Turbidity Cloudy (Clear) 09/04/16 00:12 Urine pH 5.0 (5.0-7.0) 09/04/16 00:12 Ur Specific [place] 1.011 (1.003-1.030) 09/04/16 00:12 Urine Protein 100 mg/dl mg/dL (Negative) 09/04/16 00:12 Urine Glucose (UA) Neg mg/dL (Negative) 09/04/16 00:12 Urine Ketones Tr mg/dL (Negative) 09/04/16 00:12 Urine Blood Mod (Negative) 09/04/16 00:12 Urine Nitrite Neg (Negative) 09/04/16 00:12 Urine Bilirubin Neg (Negative) 09/04/16 00:12 Urine Urobilinogen < 2.0 mg/dL (<2.0) 09/04/16 00:12 Ur Leukocyte Esterase Lg (Negative) 09/04/16 00:12 Urine WBC (Auto) > 182.0 /HPF (0.0-6.0) H 09/04/16 00:12 Urine RBC (Auto) 177.0 /HPF (0.0-6.0) 09/04/16 00:12 Urine Bacteria (Auto) 2+ /HPF (Negative) 09/04/16 00:12 Urine WBC Clumps 3+ /HPF 09/04/16 00:12 Amorphous Crystals Few 09/04/16 00:12 Hyaline Casts 4 /LPF 09/04/16 00:12 Urine Mucus Few /HPF 09/04/16 00:12 Urine Yeast (Budding) Few /HPF 09/04/16 00:12 Blood Type B POSITIVE 09/10/16 17:25 Antibody Screen Negative 09/10/16 17:25
[2016-09-13 16:12] LABS: Blood Urea Nitrogen 9 mg/dL (7-17); Calcium 8.5 mg/dL (8.4-10.2); Carbon Dioxide 18 mmol/L (22-30); Chloride 106.2 mmol/L (98-107); Glucose 97 mg/dL (65-100); Potassium 4.2 mmol/L (3.6-5.0); Sodium 140 mmol/L (137-145)
[2016-09-13 16:16] LABS: Anion Gap 20 mmol/L
[2016-09-13] MEDS: APRESOLINE PO SCH ×3 (18:09→23:06)
[2016-09-13] MEDS: CATAPRES PO SCH ×2 (18:12→22:48)
[2016-09-13] MEDS: LOPRESSOR PO SCH ×2 (18:13→22:49)
[2016-09-13] MEDS: NEURONTIN PO SCH ×2 (18:13→22:49)
[2016-09-13] MEDS: NOVOLOG SUB-Q SCH (18:15)
[2016-09-13] MEDS: ROCEPHIN/NS 1 GM/50 ML 50 ML IV SCH (18:35)
[2016-09-13] MEDS: NORVASC PO SCH (18:36)
[2016-09-13] MEDS: LASIX PO SCH (18:36)
[2016-09-13] MEDS: PROTONIX PO SCH (18:37)
[2016-09-13] MEDS: LEVEMIR SUB-Q SCH (22:50)
--- NOTE | 2016-09-14 09:14 | Discharge Summary ---
Providers - Providers Date of Admission: 09/05/16 00:45 Attending physician: TONI BROWN MD 09/05/16 06:09 Consult to Cardiac Rehabilitation [CONS] Routine Reason For Exam: Phase I 09/05/16 07:34 Physical Therapy Evaluation and Treat [CONS] Routine Comment: Reason For Exam: weak 09/06/16 09:23 Consult to Dietitian/Nutrition [CONS] Routine Physician Instructions: Reason For Exam: Reason for Consult: Poor oral intake Physical Therapy Evaluation and Treat [CONS] Routine Comment: Reason For Exam: weakness 09/06/16 12:50 Consult to Physician [CONS] Routine Consulting Provider: RYAN KNIGHT Reason For Exam: uti with Nephrolithiasis with stent Place consult to:: Josué SWENSON Notified:: YES If yes, spoke with:: yes Time called:: 12:53 09/06/16 12:57 Consult to Physician [CONS] Routine Consulting Provider: BORIS ERIC Reason For Exam: anemia with positive occult stool Place consult to:: Allie SWENSON Notified:: YES Phone number called:: [phone] If yes, spoke with:: MARGE Time called:: 14:40 Comment:: 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 She was rx with IVF, plavix was Held for 5 days after which she had Cysto and stent exchange for neprholithiasis, URology advised her being dc home with robles in place. She went on to have EGD which was normal, and Colonoscopy which showed multiple polyps and severe diverticulosis. Polyps were biopsied and plavix is to be held for 7 days, and she is to followu with GI clinic for biopsy results. Discharge Diagnsosis Melena, Acute blood loss anemia Acute kidney injury likely secondary to vasomotor nephropathy Resolved with hydration Bilateral nephrolithiasis s/p cysto and Stent exchange 09/10/16 home with margaret LAM; cardiology input appreciated chronic and asymptomatic Hypotension likely secondary to volume contraction resolved with IV hydration Diabetes mellitus rx with Insulins Dementia- received supportive care Disposition: DC/TX HOME UNDER HOME HEALTH Time spent for discharge: 35 minutes Core Measure Documentation - Palliative Care Palliative Care/ Comfort Measures: Not Applicable - Core Measures Any of the following diagnoses?: none Exam - Physical Exam Narrative exam: GEN: frial, deconditioned, NAD, AWAKE, ALERT, ORIENTATED HEENT: NCAT, PERRL, EOMI, OP CLEAR NECK: SUPPLE, NO THYROMEGALY, NO JVD, NO LAD CVS: RRR, NORMAL S1S2 LUNGS/CHEST: CTA B, NORMAL CHEST EXPANSION B, GOOD AIR ENTRY B ABD: SOFT NTND, GBS, NO REBOUND OR GUARDING EXT/SKIN: NO SIGNIFICANT EDEMA OR RASH MSK: FROM X 4 EXTREMITIES NEURO: CN 2-12 GROSSLY INTACT, NO new FOCAL DEFICITS, demented and hard of hearing PSY: CALM - Constitutional Vitals: Temp Pulse Resp BP Pulse Ox 98.3 F 79 18 146/70 98 09/14/16 00:51 09/14/16 00:51 09/14/16 00:51 09/14/16 00:51 09/13/16 23:02 Plan Special Instructions: other (Do not take Aspirin and Plavix for 7 Days) Follow up with: DIONISIO QUILES MD [Primary Care Provider] - 3-5 Days JACKIE CUEVA MD [Staff Physician] - 7 Days Prescriptions: Metoprolol [Lopressor TAB] 12.5 mg PO BID #60 tablet Multivitamin Tab W-MINERAL [Multiple Vitamin/Mineral (Theragran M)] 1 each PO QDAY #30 tablet
[2016-09-14] MEDS: APRESOLINE PO SCH (09:32)
[2016-09-14] MEDS: NOVOLOG SUB-Q SCH (09:33)
[2016-09-14] MEDS ORDERED: THERAGRAN-M Tab PO SCH (10:00)
[2016-09-14] MEDS: ROCEPHIN/NS 1 GM/50 ML 50 ML IV SCH (10:17)
[2016-09-14] MEDS: LOPRESSOR PO SCH (10:19)
[2016-09-14] MEDS: LASIX PO SCH (10:20)
[2016-09-14] MEDS: NEURONTIN PO SCH (10:21)
[2016-09-14] MEDS: NORVASC PO SCH (10:21)
[2016-09-14] MEDS: PROTONIX PO SCH (10:24)
[2016-09-14] MEDS: CATAPRES PO SCH (10:30)
[2016-09-14 14:34] VITALS: BP 129/59
== END 2016-09-14 14:30 | disposition home health service (06) | DRG 853 ==
LOC: ED 13:54 → 3A 09-05 00:45
PROVIDERS: ADMIT Internal Medicine; ATTEND Internal Medicine
PROC: 0TC18ZZ Extirpation of Matter from Left Kidney, Via Natural or Artificial Opening Endoscopic (ICD-10-PCS; principal; 2016-09-10)
PROC: BT1F1ZZ Fluoroscopy of Left Kidney, Ureter and Bladder using Low Osmolar Contrast (ICD-10-PCS; 2016-09-10)
PROC: 0T778DZ Dilation of Left Ureter with Intraluminal Device, Via Natural or Artificial Opening Endoscopic (ICD-10-PCS; 2016-09-10)
PROC: 0TP98DZ Removal of Intraluminal Device from Ureter, Via Natural or Artificial Opening Endoscopic (ICD-10-PCS; 2016-09-10)
PROC: 0DJ08ZZ Inspection of Upper Intestinal Tract, Via Natural or Artificial Opening Endoscopic (ICD-10-PCS; 2016-09-11)
PROC: 0DBK8ZZ Excision of Ascending Colon, Via Natural or Artificial Opening Endoscopic (ICD-10-PCS; 2016-09-13)
PROC: 0DBN8ZZ Excision of Sigmoid Colon, Via Natural or Artificial Opening Endoscopic (ICD-10-PCS; 2016-09-13)
DX: A41.9 Sepsis, unspecified organism (principal); N17.0 Acute kidney failure with tubular necrosis; T83.85XA Stenosis due to genitourinary prosthetic devices, implants and grafts, initial encounter; N39.0 Urinary tract infection, site not specified; E87.2 Acidosis; I13.0 Hypertensive heart and chronic kidney disease with heart failure and stage 1 through stage 4 chronic kidney disease, or unspecified chronic kidney disease; D62 Acute posthemorrhagic anemia; K92.1 Melena; R53.81 Other malaise; I50.9 Heart failure, unspecified; I95.9 Hypotension, unspecified; N18.9 Chronic kidney disease, unspecified; E11.22 Type 2 diabetes mellitus with diabetic chronic kidney disease; M19.90 Unspecified osteoarthritis, unspecified site; I25.10 Atherosclerotic heart disease of native coronary artery without angina pectoris; F03.90 Unspecified dementia, unspecified severity, without behavioral disturbance, psychotic disturbance, mood disturbance, and anxiety; D64.9 Anemia, unspecified; N20.0 Calculus of kidney; F17.210 Nicotine dependence, cigarettes, uncomplicated; K57.30 Diverticulosis of large intestine without perforation or abscess without bleeding; K63.5 Polyp of colon; K64.2 Third degree hemorrhoids; Z83.3 Family history of diabetes mellitus; Z79.4 Long term (current) use of insulin; Z79.899 Other long term (current) drug therapy; Z79.01 Long term (current) use of anticoagulants; Z86.73 Personal history of transient ischemic attack (TIA), and cerebral infarction without residual deficits; Z82.49 Family history of ischemic heart disease and other diseases of the circulatory system; Z90.710 Acquired absence of both cervix and uterus; Z95.5 Presence of coronary angioplasty implant and graft
CPT/HCPCS: 36415; 71010; 74176; 74420; 80048; 80061; 80074; 81001; 82140; 82270; 82271; 82550; 82553; 82728; 82962; 83550; 83735; 84439; 84443; 84484; 85025; 85027; 85379; 85610; 85730; 86850; 86900; 86901; 87086; 88305; 90686; 93005; 93010; 93306; 96365; 96372; 96375; A4217; A9270-GY; C1726; C1758; C1769; C2617; C9113; G8978-GP; G8979-GP; G8980-GP; J0696; J1170; J1580; J1650; J1815; J1818; J1940; J2405; J2704; J3475; J7030; Q9967

== ENCOUNTER 2016-09-26 11:34 | Inpatient (IN) | payer MEDICARE ==
[2016-09-26 13:01] LABS: Basophils % (Auto) 0.7 % (0.0-1.8); Eosinophils % (Auto) 0.9 % (0.0-4.3); Hematocrit 29.3 % (30.3-42.9); Hemoglobin 9.6 gm/dl (10.1-14.3); Mean Corpuscular HGB Conc 33 % (30-34); Mean Corpuscular Hemoglobin 29 pg (28-32); Mean Corpuscular Volume 89 fl (79-97); Platelet Count 503 K/mm3 (140-440); Red Blood Count 3.28 M/mm3 (3.65-5.03); Red Cell Distribution Width 17.8 % (13.2-15.2); White Blood Count 12.4 K/mm3 (4.5-11.0)
[2016-09-26 13:14] LABS: INR 1.02 (0.87-1.13)
[2016-09-26 13:15] LABS: Partial Thromboplastin Time 25.6 Sec. (24.2-36.6)
[2016-09-26 13:15] LABS: Blood Urea Nitrogen 21 mg/dL (7-17); Calcium 9.3 mg/dL (8.4-10.2); Carbon Dioxide 20 mmol/L (22-30); Chloride 105.1 mmol/L (98-107); Creatine Kinase 19 units/L (30-135); Glucose 118 mg/dL (65-100); Potassium 3.3 mmol/L (3.6-5.0); Sodium 146 mmol/L (137-145)
[2016-09-26 13:22] LABS: Alanine Aminotransferase 16 units/L (7-56); Albumin 3.3 g/dL (3.9-5); Albumin/Globulin Ratio 1.5 %; Alkaline Phosphatase 89 units/L (35-129); Bilirubin,Total 0.5 mg/dL (0.1-1.2); Magnesium 1.9 mg/dL (1.7-2.3); Total Protein 5.5 g/dL (6.3-8.2)
[2016-09-26 13:25] LABS: Anion Gap 24 mmol/L; Creatine Kinase MB < 1.0 ng/mL (0.0-4.0)
[2016-09-26 13:26] LABS: Bilirubin,Indirect 0.3 mg/dL
[2016-09-26 13:53] LABS: Cholesterol 127 mg/dL (50-199); HDL Cholesterol 34 mg/dL (40-59); LDL Cholesterol,Direct 57 mg/dL (50-130); Triglycerides 182 mg/dL (2-149)
[2016-09-26] MEDS ORDERED: K-DUR PO ONE (15:12)
--- NOTE | 2016-09-26 15:12 | Emergency Department Report ---
[id number] Seen by Provider: 09/26/16 12:40 - History of Present Illness Initial Comments: Patient presented this patient to the emergency department after that they "passed out". The patient's nurse cannot provide me with any additional information and the family member is not here. The patient's nurse Kelsea states that another nurse got this information and that it was conveyed to her. The patient was supposed to be electively admitted for question "stent removal " by Dr. Good. This is a patient that has an indwelling Stratton and is bedridden. Stratton catheter is noted to be draining purulent urine. There was no known reported fever or chills. The patient's nurse states that she does not have any bed sores on her examination. The patient herself is largely unable to give a history. She can't tell me her name. She is not complaining of pain nor shortness of breath. She does know that she is in a hospital. Otherwise she does not remember passing out at all. In fact she denies this. - Related Data Allergies/Adverse Reactions: Allergies No Known Allergies Allergy (Verified 08/14/15 13:19) Home Medications: Ambulatory Orders AtorvaSTATin [Lipitor] 20 mg PO QHS 09/04/16 Clopidogrel [Plavix] 75 mg PO QDAY 09/04/16 Furosemide [Lasix TAB] 40 mg PO QDAY 09/04/16 Gabapentin [Neurontin] 400 mg PO BID 09/04/16 Insulin Glargine,Hum.rec.anlog [Lantus Solostar] 36 units SQ QHS 09/04/16 Insulin Lispro [Humalog Kwikpen 200 UNITS/ML] 8 unit SC QAM 09/04/16 Losartan [Cozaar] 100 mg PO QAM 09/04/16 amLODIPine [Norvasc] 10 mg PO DAILY 09/04/16 cloNIDine [Catapres] 0.1 mg PO BID 09/04/16 Metoprolol [Lopressor TAB] 12.5 mg PO BID #60 tablet 09/14/16 Multivitamin Tab W-MINERAL [Multiple Vitamin/Mineral (Theragran M)] 1 each PO QDAY #30 tablet 09/14/16 Multivitamin Tab [Multiple Vitamin TAB (Theragran)] 1 each PO QDAY 09/26/16 ED Review of Systems ROS: Stated complaint: SYNCOPE Other details as noted in HPI Comment: Unobtainable due to pts medical conditions ED Past Medical Hx - Past Medical History Hx Hypertension: Yes Hx CVA: Yes (TIA 2008 in [place]) Hx Congestive Heart Failure: Yes Hx Diabetes: Yes Hx Renal Disease: Yes (CKD with ARF 09/04/16, h/o kidney stones) Hx Arthritis: Yes Hx Seizures: No Hx HIV: No - Surgical History Hx Coronary Stent: Yes Additional Surgical History: hysterectomy 70s? - Social History Smoking Status: Never Smoker Substance Use Type: None - Medications Home Medications: Home Medications Medication Instructions Recorded Confirmed Last Taken Type AtorvaSTATin [Lipitor] 20 mg PO QHS 09/04/16 09/26/16 09/04/16 History Clopidogrel [Plavix] 75 mg PO QDAY 09/04/16 09/26/16 09/11/16 History Furosemide [Lasix TAB] 40 mg PO QDAY 09/04/16 09/26/16 09/04/16 History Gabapentin [Neurontin] 400 mg PO BID 09/04/16 09/26/16 09/04/16 History Insulin Glargine,Hum.rec.anlog 36 units SQ QHS 09/04/16 09/26/16 09/04/16 History [Lantus Solostar] Insulin Lispro [Humalog Kwikpen 8 unit SC QAM 09/04/16 09/26/16 09/04/16 History 200 UNITS/ML] Losartan [Cozaar] 100 mg PO QAM 09/04/16 09/26/16 09/11/16 History amLODIPine [Norvasc] 10 mg PO DAILY 09/04/16 09/26/16 09/04/16 History cloNIDine [Catapres] 0.1 mg PO BID 09/04/16 09/26/16 09/04/16 History Metoprolol [Lopressor TAB] 12.5 mg PO BID #60 tablet 09/14/16 09/26/16 Unknown Rx Multivitamin Tab W-MINERAL 1 each PO QDAY #30 tablet 09/14/16 09/26/16 Unknown Rx [Multiple Vitamin/Mineral (Theragran M)] Multivitamin Tab [Multiple Vitamin 1 each PO QDAY 09/26/16 09/26/16 Unknown History TAB (Theragran)] ED Physical Exam - General Limitations: Physical Limitation General appearance: other (chronically bedridden patient deconditioned) - Head Head exam: Present: atraumatic - Eye Eye exam: Present: normal appearance. Absent: scleral icterus - ENT ENT exam: Present: mucous membranes moist - Neck Neck exam: Present: normal inspection. Absent: tenderness, meningismus - Respiratory Respiratory exam: Present: normal lung sounds bilaterally. Absent: respiratory distress - Cardiovascular Cardiovascular Exam: Present: regular rate, normal rhythm. Absent: systolic murmur, diastolic murmur, rubs, gallop - GI/Abdominal GI/Abdominal exam: Present: soft, normal bowel sounds. Absent: distended, tenderness, guarding, rebound, rigid - Extremities Exam Extremities exam: Present: other (contracted) - Neurological Exam Neurological exam: Present: other (no acute focal deficit is suspected or found on limited exam) - Psychiatric Psychiatric exam: Present: normal mood, flat affect ED Course Vital Signs 09/26/16 09/26/16 09/26/16 11:52 11:57 12:00 Temperature 98.4 F Pulse Rate 53 L 51 L Respiratory 19 Rate Blood Pressure 114/39 115/41 O2 Sat by Pulse 100 97 73 L Oximetry 09/26/16 09/26/16 13:00 14:00 Temperature Pulse Rate 55 L 54 L Respiratory 11 L 14 Rate Blood Pressure 118/49 106/34 O2 Sat by Pulse 100 99 Oximetry - Reevaluation(s) Reevaluation #1: She was found to have a very elevated d-dimer. She has renal insufficiency. She is ineligible for CTA. A nuclear medicine study was ordered. The patient was given ceftriaxone and consideration of her history of purulent urine. This was sent for culture. Blood cultures lactic acid was ordered IV fluids are ordered. The patient was given 5000 units of heparin subcutaneous. Her d- dimer was over 1400. The case was discussed with Dr. Lubin who will be admitting her for further care and evaluation. I will place a consult to Dr. Good as well. 09/26/16 15:49 ED Medical Decision Making - Lab Data Result diagrams: 09/26/16 12:40 09/26/16 12:40 Laboratory Results - last 24 hr 09/26/16 09/26/16 09/26/16 12:40 12:40 12:47 WBC 12.4 H RBC 3.28 L Hgb 9.6 L Hct 29.3 L MCV 89 MCH 29 MCHC 33 RDW 17.8 H Plt Count 503 H Lymph % (Auto) 16.9 [place] % (Auto) 5.9 Eos % (Auto) 0.9 Baso % (Auto) 0.7 Lymph # 2.1 [place] # 0.7 Eos # 0.1 Baso # 0.1 Seg Neutrophils % 75.6 H Seg Neutrophils # 9.3 H PT 13.3 INR 1.02 APTT 25.6 D-Dimer 1440.06 H Sodium 146 H Potassium 3.3 L Chloride 105.1 Carbon Dioxide 20 L Anion Gap 24 BUN 21 H Creatinine 2.5 H Estimated GFR 22 BUN/Creatinine Ratio 8.40 Glucose 118 H Calcium 9.3 Magnesium Total Bilirubin Direct Bilirubin Indirect Bilirubin AST ALT Alkaline Phosphatase Total Creatine Kinase 19 L CK-MB (CK-2) < 1.0 CK-MB (CK-2) Rel Index 5.2 H Troponin T 0.032 H NT-Pro-B Natriuret Pep Total Protein Albumin Albumin/Globulin Ratio Triglycerides 182 H Cholesterol 127 LDL Cholesterol Direct 57 HDL Cholesterol 34 L Cholesterol/HDL Ratio 3.73 TSH Free T4 09/26/16 09/26/16 12:47 12:47 WBC RBC Hgb Hct MCV MCH MCHC RDW Plt Count Lymph % (Auto) [place] % (Auto) Eos % (Auto) Baso % (Auto) Lymph # [place] # Eos # Baso # Seg Neutrophils % Seg Neutrophils # PT INR APTT D-Dimer Sodium Potassium Chloride Carbon Dioxide Anion Gap BUN Creatinine Estimated GFR BUN/Creatinine Ratio Glucose Calcium Magnesium 1.9 Total Bilirubin 0.5 Direct Bilirubin Not Reportable Indirect Bilirubin 0.3 AST 18 ALT 16 Alkaline Phosphatase 89 Total Creatine Kinase CK-MB (CK-2) CK-MB (CK-2) Rel Index Troponin T NT-Pro-B Natriuret Pep 2569 H Total Protein 5.5 L Albumin 3.3 L Albumin/Globulin Ratio 1.5 Triglycerides Cholesterol LDL Cholesterol Direct HDL Cholesterol Cholesterol/HDL Ratio TSH 2.910 Free T4 1.09 - EKG Data -: EKG Interpreted by Me EKG shows normal: sinus rhythm, axis, intervals, QRS complexes Rate: bradycardia - EKG Data Interpretation: nonspecific ST-T wave néstor - Radiology Data Radiology results: pending Critical care attestation.: If time is entered above; I have spent that time in minutes in the direct care of this critically ill patient, excluding procedure time. ED Disposition Clinical Impression: Elevated d-dimer, Pyuria, Renal stone, Hypokalemia, Bradycardia Syncope Qualifiers: Syncope type: unspecified Qualified Code(s): R55 - Syncope and collapse CKD (chronic kidney disease) Qualifiers: Chronic kidney disease stage: stage 3 (moderate) Qualified Code(s): N18.3 - Chronic kidney disease, stage 3 (moderate) Anemia Qualifiers: Anemia type: unspecified type Qualified Code(s): D64.9 - Anemia, unspecified Disposition: OP ADMITTED IP TO THIS HOSP Is pt being admited?: Yes Does the pt Need Aspirin: Yes Condition: Stable Instructions: Syncope (ED) Referrals: PRIMARY CARE, [Primary Care Provider] - 3-5 Days Time of Disposition: 15:53
[2016-09-26] MEDS ORDERED: HEPARIN SUB-Q ONE (15:18)
[2016-09-26] MEDS ORDERED: ROCEPHIN/NS 1 GM/50 ML 50 ML IV ONE ×2 (15:21→21:37)
[2016-09-26] MEDS ORDERED: BABY ASPIRIN PO ONE (15:53)
[2016-09-26 15:58] LABS: Bacteria,Urine 1+ /HPF (Negative); Bilirubin,Urine NEG (Negative); Blood,Urine SM (Negative); Ketones,Urine TR mg/dL (Negative); Leukocyte Esterase,Urine LG (Negative); Mucus,Urine FEW /HPF; Nitrite,Urine NEG (Negative); Urobilinogen,Urine < 2.0 mg/dL (<2.0); WBC,Urine > 182.0 /HPF (0.0-6.0)
--- NOTE | 2016-09-26 16:18 | Nuclear Medicine Report ---
LUNG SCAN, VENTILATION AND PERFUSION: Inhalation of Xenon gas demonstrates a normal distribution of the activity throughout both lungs. The wash out phases show no focal retention of activity. After injection of Technetium 99m macroaggregated albumin gamma camera imaging of the lungs in multiple projections demonstrates normal pulmonary contours with a homogeneous distribution of activity. No focal areas of perfusion deficiency are identified. IMPRESSION: Normal study.
--- NOTE | 2016-09-26 20:08 | Event Note ---
Date: 09/26/16 See H/p in reports Encephalopathy Syncope UTI IDDM Stent removal-ureter HTN CVA
[2016-09-26] MEDS ORDERED: TYLENOL PO PRN (20:24)
[2016-09-26] MEDS ORDERED: ZOFRAN IV PRN (20:24)
[2016-09-26] MEDS ORDERED: MILK OF MAGNESIA PO PRN (20:24)
[2016-09-26] MEDS ORDERED: DILAUDID IV PRN (20:24)
[2016-09-26] MEDS ORDERED: DULCOLAX PR PRN (20:24)
[2016-09-26] MEDS ORDERED: NOVOLOG SUB-Q ONE (20:37)
--- NOTE | 2016-09-26 20:41 | Admit Criteria Form ---
Admission Criteria Documentation: RENAL FAILURE, CHRONIC Clinical Indications for Admission to Inpatient Care (Place 'X' for any and all applicable criteria): Admission is indicated for ANY ONE of the following (1)(2)(3)(4)(5): [X ]I. Inpatient admission required rather than observation care (Use Renal Failure, Chronic: Observation Care Criteria as appropriate) because of ANY ONE of the following: [ ]a) Volume overload or uremic symptoms (eg, clinically significant pulmonary edema, hypertension, pericarditis, acidosis) too severe for, or not responsive (eg, for over 24 hours) to emergency department or observation care dialysis or treatment regimen (11) [ ]b) Hemodynamic instability that is severe or persistent [ ]c) Respiratory distress that is severe or persistent (11) [ X]d) Clinically significant electrolyte abnormality that requires inpatient care (eg,hyperkalemia with severe ECG findings)[B] [ ]e) Supplement O2 or respiratory therapy for over 24hrs that is performable only in acute inpatient setting [ ]f) Continuous IV infusion of anticoagulation, platelet inhibitor, vasoactive, or Antiarrhythmic medication (15), [ ]g) Pulmonary artery catheter monitoring [ ]h) Temporary pacemaker placement [ ]i) Emergent pericardiocentesis [ ]j) Other condition, treatment or monitoring requiring inpatient admission [ ]II. Unexplained syncope [A] [ ]III. Recurrent seizures [ ]IV. Severe infections not treatable in outpatient setting (eg, peritonitis)(9 ) [ ]V. Cardiac arrhythmias of immediate concern [ ]. Encephalopathy [ ]VII.Bleeding abnormalities (eg, platelet dysfunction) with active (eg, gastrointestinal) bleeding Extended stay beyond goal length of stay may be needed for (3)(4)(35)(36): [ ]a) Continuing uremic complications [ ]b) Comorbidities or complications The original [employer] content created by [employer] has been revised. The portions of the content which have been revised are identified through the use of italic text or in bold, and [facility] has neither reviewed nor approved the modified material. All other unmodified content is copyright [employer]. Please see references footnoted in the original [facility] edition 2016 Admission Criteria Met: Yes
[2016-09-26] MEDS ORDERED: NACL 0.45% 1000 ML 1,000 ML IV SCH (21:00)
[2016-09-26] MEDS ORDERED: THERAGRAN Tab PO SCH (21:00)
[2016-09-26] MEDS ORDERED: ROCEPHIN/NS 2 GM/100 ML 100 ML IV SCH (21:00)
[2016-09-26] MEDS ORDERED: PLAVIX ONE (21:37)
[2016-09-26] MEDS ORDERED: LASIX ONE (21:37)
[2016-09-26] MEDS: LASIX PO SCH (21:53)
[2016-09-26] MEDS: PLAVIX PO SCH (21:53)
[2016-09-26] MEDS: ROCEPHIN/NS 1 GM/50 ML 50 ML IV SCH (21:53)
[2016-09-26] MEDS ORDERED: INSULIN GLARGINE HUM REC ANLOG 36 UNIT SQ SCH (22:00)
[2016-09-26] MEDS ORDERED: LOPRESSOR PO SCH (22:00)
[2016-09-26] MEDS: NEURONTIN PO SCH (23:00)
[2016-09-26] MEDS: LEVEMIR SUB-Q SCH (23:00)
[2016-09-27] MEDS: CATAPRES PO SCH ×2 (03:27→10:33)
[2016-09-27] MEDS ORDERED: INSULIN LISPRO 8 UNIT SC SCH (07:30)
[2016-09-27 08:10] LABS: Albumin 2.6 g/dL (3.9-5); Albumin/Globulin Ratio 0.8 %; BUN/Creatinine Ratio 8.8; Bilirubin,Total 0.3 mg/dL (0.1-1.2); Calcium 9.1 mg/dL (8.4-10.2); Chloride 105.9 mmol/L (98-107); Potassium 3.1 mmol/L (3.6-5.0); Total Protein 5.8 g/dL (6.3-8.2)
[2016-09-27 08:11] LABS: Basophils % (Auto) 0.7 % (0.0-1.8); Eosinophils % (Auto) 1.1 % (0.0-4.3); Hematocrit 29.8 % (30.3-42.9); Hemoglobin 9.8 gm/dl (10.1-14.3); Mean Corpuscular HGB Conc 33 % (30-34); Mean Corpuscular Hemoglobin 30 pg (28-32); Mean Corpuscular Volume 91 fl (79-97); Red Blood Count 3.29 M/mm3 (3.65-5.03); Red Cell Distribution Width 18.3 % (13.2-15.2); White Blood Count 14.4 K/mm3 (4.5-11.0)
--- NOTE | 2016-09-27 08:23 | History and Physical Report ---
CHIEF COMPLAINT: Passed out at home. HISTORY OF PRESENT ILLNESS: An 81-year-old -[place]in[place] female who apparently passed out as per the nurse. The patient is supposed to be electively admitted for stent removal by Dr. Good on 09/27/2016. This patient is having indwelling Stratton catheter and is bedridden. Stratton catheter is noted to have a draining cloudy and purulent urine. No reported fevers or chills. No bedsores. The patient is unable to give any history, but at the time of my examination, the patient was alert, but not oriented. Asking some questions appropriately. PAST MEDICAL HISTORY: Significant for coronary artery disease, hyperlipidemia, congestive heart failure, peripheral neuropathy, insulin-dependent diabetes, hypertension. CURRENT MEDICATIONS: Lipitor 20 mg daily, Plavix 75 mg daily, Lasix 40 mg daily, Neurontin 400 mg twice a day, Lantus 36 units subcutaneous at bedtime, Humalog KwikPen 200 units, 8 units before each meal, losartan 100 mg p.o. daily, amlodipine 10 mg p.o. daily, clonidine 0.1 p.o. b.i.d., metoprolol 12.5 p.o. b.i.d., multivitamins 1 tablet each day. PAST MEDICAL HISTORY: As mentioned. Cerebrovascular accident with congestive heart failure, chronic kidney disease, arthritis, hypertension, and diabetes. FAMILY HISTORY: Significant for hypertension. SOCIAL HISTORY: She does not smoke. No alcohol, no recreational drugs. SURGICAL HISTORY: Coronary stents. Hysterectomy in the 1970s. REVIEW OF SYSTEMS: CONSTITUTIONAL: No weight loss, no fever, no chills. No weight gain. HEENT: No sore throat, no postnasal drip. CARDIOVASCULAR AND RESPIRATORY: No chest pain. Shortness of breath present. GASTROINTESTINAL: No nausea, no vomiting, no diarrhea. GENITOURINARY: The patient cannot tell whether she has dysuria or not. No abdominal pain. No flank pain. CENTRAL NERVOUS SYSTEM: Syncope. No seizures. No focal deficits. SKIN: No rashes. No decubitus ulcer. PHYSICAL EXAMINATION: GENERAL: Elderly female lying in bed, answers questions occasionally appropriately. VITAL SIGNS: Pulse is 54, temperature is 98, sats are 98%, blood pressure is 116/54, respiratory rate is 18. HEENT: Unremarkable. Pupils are equal and reactive. NECK: Supple, no lymphadenopathy, no thyromegaly. LUNGS: Clear to auscultation and percussion. Good air entry. CARDIOVASCULAR: S1, S2 heard. No gallop, no murmur, no rub. Apical impulse in left fifth intercostal space and midclavicular line. ABDOMEN: Soft and benign. No hepatosplenomegaly. No guarding, no rigidity. Hernial orifices are normal. Stratton catheter in place. EXTREMITIES: Good pedal pulses. No pedal edema. CENTRAL NERVOUS SYSTEM: Alert and oriented to some extent. Not alert, not oriented x4. Answers some questions appropriately, especially her name, not the time, and place. SKIN: No decubitus ulcer. LABORATORY DATA: White count is 12,400, H and H is 9.6 and 29.3, platelet count is 503,000. D-dimer is 1440. Potassium is 3.3, sodium is 146. BUN and creatinine is 21 and 2.5, glucose is 118. BNP is 2569. Troponin is 0.032. Her total CK is 19 and CK-MB less than 1. Urine shows white cells more than 182. ASSESSMENT AND PLAN: 1. Syncope, syncope workup. The patient is lying in bed and alert. I cannot believe that she syncopized while lying down, but will give clearance to the history. Personally, I feel syncope is unlikely. We will get carotid duplex scan. Troponins at bedtime, which attribute to the chronic kidney disease. Because the CK is low at 19. Troponin is 0.032. We will get carotid duplex scan. 2. Acute renal failure, on chronic kidney disease. IV fluids for the time being. 3. Ureteric stent. We will consult Dr. Good and the patient was due to get his ureteral stent removal today, history is very unclear, but the patient was seen by Urology. 4. Insulin-dependent diabetes. Continue insulin and coverage. 5. Hypertension. Continue losartan 100 mg daily, amlodipine 10 mg daily, and clonidine 0.1 b.i.d. 6. Hyperlipidemia. Continue Lipitor 20 mg daily. 7. History of cerebrovascular accident in the past. Continue on Plavix 75 mg daily. 8. Deep venous thrombosis prophylaxis, Lovenox 40 mg daily. 9. Acute renal failure, IV fluids. JOB# [id number] [facility]
[2016-09-27 08:28] LABS: Platelet Count 455 K/mm3 (140-440)
[2016-09-27] MEDS ORDERED: VANCOMYCIN/NS 1 GM/250 ML 250 ML IV ONE (09:05)
[2016-09-27] MEDS: NOVOLOG SUB-Q SCH ×3 (09:48→21:03)
[2016-09-27] MEDS ORDERED: NON-FORMULARY (Losartan [Cozaar] 100 MG) PO SCH (10:00)
--- NOTE | 2016-09-27 10:06 | Consultation ---
Addendum entered and electronically signed by LIZA MELO MD 11:46: Patient seen and examined Patient experienced syncope while seated in her wheelchair. Tele is pertinent for 2.2 sec sinus pauses Given his of remote PCI, will schedule for lexiscan in am Patient will also benefit from an EP evaluation (Dr Pablo will be rounding tomorrow and will evaluate patient) Discontinue metoprolol 12.5 mg po bid Original Note: History of Present Illness Consult date: 09/27/16 Consult reason: bradycardia, syncope History of present illness: This is an 81yr old woman whom is admitted with syncope. Patient reports yesterday she was sitting in a chair when she suddenly "blacked out". Patient reports when she came back to herself she had diarrhea. Patient denies chest pain, shortness of breath or palpitations prior to her passing out. Patient is resting in bed with mild confusion. She has no complaints. Telemetry monitoring strips shows a sinus bradycardia with periods of 2-3sec pauses overnight. Patient remained asymptomatic. She is on low dose metoprolol 12.5mg twice a day. Laboratory studies shows a TSH of 2.9; Magnesium 1.9; Potassium 3.1. Cardiac consultation requested. Medications and Allergies Allergies Allergy/AdvReac Type Severity Reaction Status Date / Time No Known Allergies Allergy Verified 08/14/15 13:19 Home Medications Medication Instructions Recorded Confirmed Last Taken Type AtorvaSTATin [Lipitor] 20 mg PO QHS 09/04/16 09/26/16 09/04/16 History Clopidogrel [Plavix] 75 mg PO QDAY 09/04/16 09/26/16 09/11/16 History Furosemide [Lasix TAB] 40 mg PO QDAY 09/04/16 09/26/16 09/04/16 History Gabapentin [Neurontin] 400 mg PO BID 09/04/16 09/26/16 09/04/16 History Insulin Glargine,Hum.rec.anlog 36 units SQ QHS 09/04/16 09/26/16 09/04/16 History [Lantus Solostar] Insulin Lispro [Humalog Kwikpen 8 unit SC QAM 09/04/16 09/26/16 09/04/16 History 200 UNITS/ML] Losartan [Cozaar] 100 mg PO QAM 09/04/16 09/26/16 09/11/16 History amLODIPine [Norvasc] 10 mg PO DAILY 09/04/16 09/26/16 09/04/16 History cloNIDine [Catapres] 0.1 mg PO BID 09/04/16 09/26/16 09/04/16 History Metoprolol [Lopressor TAB] 12.5 mg PO BID #60 tablet 09/14/16 09/26/16 Unknown Rx Multivitamin Tab W-MINERAL 1 each PO QDAY #30 tablet 09/14/16 09/26/16 Unknown Rx [Multiple Vitamin/Mineral (Theragran M)] Multivitamin Tab [Multiple Vitamin 1 each PO QDAY 09/26/16 09/26/16 Unknown History TAB (Theragran)] Active Meds: Active Medications Acetaminophen (Tylenol) 650 mg PO Q4H PRN PRN Reason: Pain MILD(1-3)/Fever >100.5/HUGHES Amlodipine Besylate (Norvasc) 10 mg PO DAILY [facility] Bisacodyl (Dulcolax) 10 mg CA QDAY PRN PRN Reason: Constipation unrelieved by MOM Clonidine HCl (Catapres) 0.1 mg PO BID [facility] Last Admin: 09/27/16 03:27 Dose: Not Given Clopidogrel Bisulfate (Plavix) 75 mg PO QDAY [facility] Last Admin: 09/26/16 21:53 Dose: 75 mg Enoxaparin Sodium (Lovenox) 30 mg SUB-Q QDAY [facility] Furosemide (Lasix) 40 mg PO QDAY [facility] Last Admin: 09/26/16 21:53 Dose: 40 mg Gabapentin (Neurontin) 400 mg PO BID [facility] Last Admin: 09/26/16 23:00 Dose: Not Given Hydromorphone HCl (Dilaudid) 0.5 mg IV Q3H PRN PRN Reason: Pain , Severe (7-10) Sodium Chloride (Nacl 0.45% 1000 Ml) 1,000 mls @ 100 mls/hr IV DIRECT [facility] Ceftriaxone Sodium (Rocephin/Ns 1 Gm/50 Ml) 50 mls @ 100 mls/hr IV Q24HR [facility] Last Admin: 09/26/16 21:53 Dose: 100 mls/hr Potassium Chloride/Sodium Chloride (Ns/Kcl 20meq) 1,000 mls @ 75 mls/hr IV DIRECT [facility] Vancomycin HCl (Vancomycin/Ns 1 Gm/250 Ml) 250 mls @ 167 mls/hr IV DAILY ONE PRN Reason: Protocol Stop: 09/27/16 10:34 Insulin Aspart (Novolog) 8 units SUB-Q AC [facility] Last Admin: 09/27/16 09:48 Dose: Not Given Insulin Detemir (Levemir) 36 units SUB-Q QHS [facility] Last Admin: 09/26/16 23:00 Dose: Not Given Losartan Potassium (Cozaar) 100 mg PO QDAY [facility] Magnesium Hydroxide (Milk Of Magnesia) 30 ml PO Q4H PRN PRN Reason: Constipation Multivitamins/Minerals (Theragran-M Tab) 1 each PO QDAY [facility] Ondansetron HCl (Zofran) 4 mg IV Q8H PRN PRN Reason: N/V unrelieved by Reglan Physical Examination Vital Signs Temp Pulse BP Pulse Ox 98.4 F 53 L 114/39 100 09/26/16 11:52 09/26/16 11:52 09/26/16 11:52 09/26/16 11:52 General appearance: no acute distress HEENT: Positive: PERRL Neck: Positive: trachea midline Cardiac: Positive: Reg Rate and Rhythm Neuro: Positive: Grossly Intact Extremities: Absent: edema Results 09/27/16 06:47 09/27/16 06:47 Cardiac Enzymes 09/27/16 Range/Units 06:47 AST 15 (5-40) units/L CBC 09/27/16 Range/Units 06:47 WBC 14.4 H (4.5-11.0) K/mm3 RBC 3.29 L (3.65-5.03) M/mm3 Hgb 9.8 L (10.1-14.3) gm/dl Hct 29.8 L (30.3-42.9) % Plt Count 455 H (140-440) K/mm3 Lymph # 3.9 (1.2-5.4) K/mm3 [place] # 1.3 H (0.0-0.8) K/mm3 Eos # 0.2 (0.0-0.4) K/mm3 Baso # 0.1 (0.0-0.1) K/mm3 Comprehensive Metabolic Panel 09/27/16 Range/Units 06:47 Sodium 143 (137-145) mmol/L Potassium 3.1 L (3.6-5.0) mmol/L Chloride 105.9 (98-107) mmol/L Carbon Dioxide 19 L (22-30) mmol/L BUN 22 H (7-17) mg/dL Creatinine 2.5 H (0.7-1.2) mg/dL Glucose 78 (65-100) mg/dL Calcium 9.1 (8.4-10.2) mg/dL AST 15 (5-40) units/L ALT 13 (7-56) units/L Alkaline Phosphatase 76 (35-129) units/L Total Protein 5.8 L (6.3-8.2) g/dL Albumin 2.6 L (3.9-5) g/dL Assessment and Plan Syncope Hypokalemia Leukocytosis Bilateral nephrolithiasis s/p recent ureteral stent exchange Hx of CAD s/p remote PCI in [place] (unknown anatomy) normal LVEF on echo 09/2016 Chronic renal disease Dementia Sinus bradycardia with 2-3sec pauses noted on telemetry TSH 2.9 Recommendations: Persantine stress thallium tomorrow morning for further cardiac evaluation following syncope. Stop metoprolol. Replete potassium.
[2016-09-27] MEDS: LOVENOX SUB-Q SCH (10:30)
[2016-09-27] MEDS: THERAGRAN-M Tab PO SCH (10:31)
[2016-09-27] MEDS: NEURONTIN PO SCH ×2 (10:31→22:00)
[2016-09-27] MEDS: PLAVIX PO SCH (10:31)
[2016-09-27] MEDS: ROCEPHIN/NS 1 GM/50 ML 50 ML IV SCH (10:31)
[2016-09-27] MEDS: NORVASC PO SCH (10:32)
[2016-09-27] MEDS: LASIX PO SCH (10:33)
[2016-09-27] MEDS: COZAAR PO SCH (10:33)
[2016-09-27] MEDS: VANCOMYCIN VIAL 1,250 MG in NACL 0.9% 250ML 250 ML IV SCH (13:41)
--- NOTE | 2016-09-27 14:07 | Progress Note ---
Assessment and Plan Assessment and plan: --Vasovagal syncope No new episodes, fall precautions, syncope workup in progress Physical therapy occupational therapy -- carotid artery stenosis 50-79% stenosis Patient is already placed on Plavix, consider vascular evaluation if needed --Acute renal failure; Probably secondary to vasomotor nephropathy, ATN Gentle hydration, closely monitor renal function, avoid nephrotoxic medications Consider nephrology evaluation if needed --Hypertension; moderate control Continue current antihypertensives and when necessary medications --Hypokalemia; replenish per protocol and monitor levels --DVT prophylaxis with Lovenox --CODE STATUS, full code Closely monitor the patient adjust the management as needed --Type 2 diabetes mellitus; moderate control Accu-Chek sliding scale coverage and ADA diet and insulin as needed, check hemoglobin A1c --Dyslipidemia stable on lipid-lowering medications --Diabetic neuropathy continue Neurontin --Gram-positive blood cultures Empiric antibiotics, follow cultures sensitivities, consider ID evaluation --DVT prophylaxis with Lovenox Closely monitor the patient and adjust management as needed Cardiology evaluation and recommendations noted schedules for stress test tomorrow Possible stress test tomorrow if stable Discussed with the patient, her nurse as well as the case management History Interval history: Patient seen and evaluated medical records reviewed No new events reported by the nursing staff No new episodes of syncope or near syncope Patient is alert and awake responding appropriately Denies headache dizziness, denies chest pain shortness of breath Vital signs reviewed Hospitalist Physical - Constitutional Vitals: Temp Pulse Resp BP Pulse Ox 98.0 F 60 18 140/67 98 09/27/16 07:30 09/27/16 10:32 09/27/16 07:30 09/27/16 10:32 09/27/16 07:30 General appearance: Present: no acute distress, well-nourished, obese - EENT Eyes: Present: PERRL, EOM intact - Neck Neck: Present: supple, normal ROM - Respiratory Respiratory effort: normal Respiratory: bilateral: diminished, negative: rales, rhonchi, wheezing - Cardiovascular Rhythm: regular Heart Sounds: Present: S1 & S2 - Extremities Extremities: no ischemia, pulses intact, pulses symmetrical Peripheral Pulses: within normal limits - Abdominal General gastrointestinal: soft, non-tender, non-distended, normal bowel sounds - Integumentary Integumentary: Present: clear, warm - Psychiatric Psychiatric: appropriate mood/affect, cooperative - Neurologic Neurologic: CNII-XII intact, moves all extremities Results - Labs CBC & Chem 7: 09/27/16 06:47 09/27/16 06:47 Labs: Laboratory Last Values WBC 14.4 K/mm3 (4.5-11.0) H 09/27/16 06:47 RBC 3.29 M/mm3 (3.65-5.03) L 09/27/16 06:47 Hgb 9.8 gm/dl (10.1-14.3) L 09/27/16 06:47 Hct 29.8 % (30.3-42.9) L 09/27/16 06:47 MCV 91 fl (79-97) 09/27/16 06:47 MCH 30 pg (28-32) 09/27/16 06:47 MCHC 33 % (30-34) 09/27/16 06:47 RDW 18.3 % (13.2-15.2) H 09/27/16 06:47 Plt Count 455 K/mm3 (140-440) H 09/27/16 06:47 Lymph % (Auto) 26.7 % (13.4-35.0) 09/27/16 06:47 [place] % (Auto) 8.7 % (0.0-7.3) H 09/27/16 06:47 Eos % (Auto) 1.1 % (0.0-4.3) 09/27/16 06:47 Baso % (Auto) 0.7 % (0.0-1.8) 09/27/16 06:47 Lymph # 3.9 K/mm3 (1.2-5.4) 09/27/16 06:47 [place] # 1.3 K/mm3 (0.0-0.8) H 09/27/16 06:47 Eos # 0.2 K/mm3 (0.0-0.4) 09/27/16 06:47 Baso # 0.1 K/mm3 (0.0-0.1) 09/27/16 06:47 Seg Neutrophils % 62.8 % (40.0-70.0) 09/27/16 06:47 Seg Neutrophils # 9.1 K/mm3 (1.8-7.7) H 09/27/16 06:47 PT 13.3 Sec. (12.2-14.9) 09/26/16 12:47 INR 1.02 (0.87-1.13) 09/26/16 12:47 APTT 25.6 Sec. (24.2-36.6) 09/26/16 12:47 D-Dimer 1440.06 ng/mlDDU (0-234) H 09/26/16 12:47 Sodium 143 mmol/L (137-145) 09/27/16 06:47 Potassium 3.1 mmol/L (3.6-5.0) L 09/27/16 06:47 Chloride 105.9 mmol/L (98-107) 09/27/16 06:47 Carbon Dioxide 19 mmol/L (22-30) L 09/27/16 06:47 Anion Gap 21 mmol/L 09/27/16 06:47 BUN 22 mg/dL (7-17) H 09/27/16 06:47 Creatinine 2.5 mg/dL (0.7-1.2) H 09/27/16 06:47 Estimated GFR 22 ml/min 09/27/16 06:47 BUN/Creatinine Ratio 8.80 % 09/27/16 06:47 Glucose 78 mg/dL (65-100) 09/27/16 06:47 POC Glucose 141 (70-105) H 09/27/16 11:24 Hemoglobin A1c 5.7 % (4-6) 09/27/16 06:47 Lactic Acid 1.2 mmol/L (0.7-2.0) 09/26/16 16:25 Calcium 9.1 mg/dL (8.4-10.2) 09/27/16 06:47 Magnesium 1.9 mg/dL (1.7-2.3) 09/26/16 12:47 Total Bilirubin 0.3 mg/dL (0.1-1.2) 09/27/16 06:47 Direct Bilirubin Not Reportable 09/26/16 12:47 Indirect Bilirubin 0.3 mg/dL 09/26/16 12:47 AST 15 units/L (5-40) 09/27/16 06:47 ALT 13 units/L (7-56) 09/27/16 06:47 Alkaline Phosphatase 76 units/L (35-129) 09/27/16 06:47 Total Creatine Kinase 19 units/L (30-135) L 09/26/16 12:40 CK-MB (CK-2) < 1.0 ng/mL (0.0-4.0) 09/26/16 12:40 CK-MB (CK-2) Rel Index 5.2 (0-4) H 09/26/16 12:40 Troponin T 0.032 ng/mL (0.00-0.029) H 09/26/16 12:40 NT-Pro-B Natriuret Pep 2569 pg/mL (0-900) H 09/26/16 12:47 Total Protein 5.8 g/dL (6.3-8.2) L 09/27/16 06:47 Albumin 2.6 g/dL (3.9-5) L 09/27/16 06:47 Albumin/Globulin Ratio 0.8 % 09/27/16 06:47 Triglycerides 182 mg/dL (2-149) H 09/26/16 12:40 Cholesterol 127 mg/dL (50-199) 09/26/16 12:40 LDL Cholesterol Direct 57 mg/dL (50-130) 09/26/16 12:40 HDL Cholesterol 34 mg/dL (40-59) L 09/26/16 12:40 Cholesterol/HDL Ratio 3.73 % 09/26/16 12:40 TSH 2.910 mlU/mL (0.270-4.200) 09/26/16 12:47 Free T4 1.09 ng/dL (0.76-1.46) 09/26/16 12:47 Urine Color Yellow (Yellow) 09/26/16 15:23 Urine Turbidity Turbid (Clear) 09/26/16 15:23 Urine pH 5.0 (5.0-7.0) 09/26/16 15:23 Ur Specific [place] 1.012 (1.003-1.030) 09/26/16 15:23 Urine Protein 100 mg/dl mg/dL (Negative) 09/26/16 15:23 Urine Glucose (UA) Neg mg/dL (Negative) 09/26/16 15:23 Urine Ketones Tr mg/dL (Negative) 09/26/16 15:23 Urine Blood Sm (Negative) 09/26/16 15:23 Urine Nitrite Neg (Negative) 09/26/16 15:23 Urine Bilirubin Neg (Negative) 09/26/16 15:23 Urine Urobilinogen < 2.0 mg/dL (<2.0) 09/26/16 15:23 Ur Leukocyte Esterase Lg (Negative) 09/26/16 15:23 Urine WBC (Auto) > 182.0 /HPF (0.0-6.0) H 09/26/16 15:23 Urine RBC (Auto) 20.0 /HPF (0.0-6.0) 09/26/16 15:23 Urine Bacteria (Auto) 1+ /HPF (Negative) 09/26/16 15:23 Urine WBC Clumps 3+ /HPF 09/26/16 15:23 Hyaline Casts 107 /LPF 09/26/16 15:23 Urine Mucus Few /HPF 09/26/16 15:23 Ur Yeast w Hyphae Few /HPF 09/26/16 15:23
[2016-09-27] MEDS: NS/KCL 20MEQ 1,000 ML IV SCH (21:17)
[2016-09-27] MEDS: LEVEMIR SUB-Q SCH (22:00)
[2016-09-28] MEDS: CATAPRES PO SCH ×2 (03:51→11:19)
[2016-09-28] MEDS ORDERED: LEXISCAN IV ONE ×2 (08:14→08:30)
--- NOTE | 2016-09-28 10:50 | Progress Note ---
Assessment and Plan Syncope: Description suggestive of vaso-vagal etiology Sinus bradycardia with non-signficant pauses noted on telemetry: Improved since beta chyna stopped. Hypokalemia Leukocytosis Bilateral nephrolithiasis s/p recent ureteral stent exchange Hx of CAD s/p remote PCI in [place] (unknown anatomy) normal LVEF on echo 09/2016 No significant ischemia based on MPI Chronic renal disease Dementia Recommendations: Continue to hold beta chyna. No further cardiac testing or intervention necessary at this time. Subjective Date of service: 09/28/16 Interval history: No cardiac complaints or acute events. MPI done this mrning. No recurrence of pauses noted on telemetry. Continues to have nocturnal bradycardia. Objective Vital Signs Temp Pulse Pulse Resp BP BP Pulse Ox 09/28/16 07:30 97.6 F 66 18 145/68 09/28/16 04:00 97.6 F 61 20 135/80 100 09/28/16 03:51 64 125/68 09/27/16 23:10 98.1 F 60 112/60 100 09/27/16 17:00 98.1 F 65 18 126/58 97 - Physical Examination HEENT: Positive: PERRL Neck: Positive: trachea midline Cardiac: Positive: Reg Rate and Rhythm Neuro: Positive: Grossly Intact Extremities: Absent: edema
[2016-09-28] MEDS: COZAAR PO SCH (11:20)
[2016-09-28] MEDS: LOVENOX SUB-Q SCH (11:21)
[2016-09-28] MEDS: LASIX PO SCH (11:21)
[2016-09-28] MEDS: NEURONTIN PO SCH ×2 (11:22→22:30)
[2016-09-28] MEDS: NORVASC PO SCH (11:23)
[2016-09-28] MEDS: PLAVIX PO SCH (11:24)
[2016-09-28] MEDS: ROCEPHIN/NS 1 GM/50 ML 50 ML IV SCH (11:35)
[2016-09-28] MEDS: THERAGRAN-M Tab PO SCH (11:35)
[2016-09-28] MEDS: NOVOLOG SUB-Q SCH ×2 (12:58→18:19)
--- NOTE | 2016-09-28 15:24 | Discharge Summary ---
Providers - Providers Date of Admission: 09/26/16 20:24 Date of discharge: 09/28/16 Attending physician: MERLINE BUSTOS 09/27/16 06:56 Consult to Physician [CONS] Routine Consulting Provider: JOEL MOONEY Reason For Exam: Bradycardia,pause 2.[address] consult to:: DR. MOONEY Notified:: DR. MOONEY Was contact made?: Yes If yes, spoke with:: DR. MOONEY Comment:: CONSULT COMPLETED BY COMPLETED Primary care physician: [employer]PERATOR Hospitalization Condition: Stable Disposition: DC/TX HOME UNDER HOME HE[facility] Core Measure Documentation - Palliative Care Palliative Care/ Comfort Measures: Not Applicable - Core Measures Any of the following diagnoses?: none Exam - Constitutional Vitals: Temp Pulse Resp BP Pulse Ox 97.5 F L 65 20 149/67 100 09/28/16 12:05 09/28/16 12:05 09/28/16 12:05 09/28/16 12:05 09/28/16 04:00 General appearance: Present: no acute distress, well-nourished - EENT Eyes: Present: PERRL, EOM intact - Neck Neck: Present: supple, normal ROM - Respiratory Respiratory effort: normal Respiratory: bilateral: diminished, negative: rales, rhonchi, wheezing - Cardiovascular Rhythm: regular Heart Sounds: Present: S1 & S2 - Extremities Extremities: no ischemia, pulses intact, pulses symmetrical Peripheral Pulses: within normal limits - Abdominal General gastrointestinal: Present: soft, non-tender, non-distended, normal bowel sounds - Integumentary Integumentary: Present: clear, warm - Musculoskeletal Musculoskeletal: strength equal bilaterally, generalized weakness - Psychiatric Psychiatric: appropriate mood/affect, cooperative - Neurologic Neurologic: CNII-XII intact, moves all extremities Plan Activity: advance as tolerated, fall precautions Diet: low salt, diabetic Special Instructions: physical therapy, occupational therapy Additional Instructions: Hold metoprolol and clonidine [patient has bradycardia] . Hold insulin as patient's blood sugars are low. Check with primary care physician before starting insulin. Fall precautions. Follow, urologist in 2-3 days, Follow up with: DIONISIO QUILES MD [Primary Care Provider] - 3-5 Days RYAN KNIGHT MD [Staff Physician] - 7 Days PADDY ROJAS MD [Staff Physician] - 7 Days
--- NOTE | 2016-09-28 15:55 | Progress Note ---
Assessment and Plan Assessment and plan: --Gram-positive bacteremia 1:2 IV Vancomycin, repeat cultures follow sensitivities Consider ID evaluation as needed --Vasovagal syncope/bradycardia No new episodes, fall precautions, hold metoprolol and clonidine Physical therapy occupational therapy Cardiology following, no further workup --carotid artery stenosis 50-79% stenosis Patient is already placed on Plavix, continue supportive care Vascular evaluation if needed --Acute renal failure/secondary to vasomotor nephropathy/obstructive uropathy Gentle hydration, closely monitor renal function, avoid nephrotoxic medications --h/o ureteric stone/status post stent placement Urology considering lithotripsy as outpatient, I discussed with Dr. Moses patient to follow with urology in the office for further evaluation and management --Hypertension; moderate control Continue current antihypertensives and when necessary medications --Type 2 diabetes mellitus; moderate control Accu-Chek sliding scale coverage and ADA diet and insulin as needed, --Dyslipidemia stable on lipid-lowering medications --Diabetic neuropathy continue Neurontin --DVT prophylaxis with Lovenox --CODE STATUS, full code Closely monitor the patient adjust the management as needed History Interval history: Patient seen and evaluated medical records reviewed No new events reported by the nursing staff Patient's heart rate significantly improved, metoprolol is held Cardiology evaluation and recommendations noted and appreciated And has one in 2 positive blood cultures with gram-positive cocci Agent is alert awake oriented 3 No new episodes of syncope Vital signs are stable Hospitalist Physical - Constitutional Vitals: Temp Pulse Resp BP Pulse Ox 97.7 F 63 20 105/47 100 09/28/16 15:20 09/28/16 15:20 09/28/16 15:20 09/28/16 15:20 09/28/16 04:00 General appearance: Present: no acute distress, well-nourished - EENT Eyes: Present: PERRL, EOM intact - Neck Neck: Present: supple, normal ROM - Respiratory Respiratory effort: normal Respiratory: bilateral: diminished, negative: rales, rhonchi, wheezing - Cardiovascular Rhythm: regular Heart Sounds: Present: S1 & S2 - Extremities Extremities: no ischemia, pulses intact, pulses symmetrical Peripheral Pulses: within normal limits - Abdominal General gastrointestinal: soft, non-tender, non-distended, normal bowel sounds - Integumentary Integumentary: Present: clear, warm - Psychiatric Psychiatric: appropriate mood/affect, cooperative - Neurologic Neurologic: CNII-XII intact, moves all extremities Results - Labs CBC & Chem 7: 09/27/16 06:47 09/27/16 06:47 Labs: Laboratory Last Values WBC 14.4 K/mm3 (4.5-11.0) H 09/27/16 06:47 RBC 3.29 M/mm3 (3.65-5.03) L 09/27/16 06:47 Hgb 9.8 gm/dl (10.1-14.3) L 09/27/16 06:47 Hct 29.8 % (30.3-42.9) L 09/27/16 06:47 MCV 91 fl (79-97) 09/27/16 06:47 MCH 30 pg (28-32) 09/27/16 06:47 MCHC 33 % (30-34) 09/27/16 06:47 RDW 18.3 % (13.2-15.2) H 09/27/16 06:47 Plt Count 455 K/mm3 (140-440) H 09/27/16 06:47 Lymph % (Auto) 26.7 % (13.4-35.0) 09/27/16 06:47 [place] % (Auto) 8.7 % (0.0-7.3) H 09/27/16 06:47 Eos % (Auto) 1.1 % (0.0-4.3) 09/27/16 06:47 Baso % (Auto) 0.7 % (0.0-1.8) 09/27/16 06:47 Lymph # 3.9 K/mm3 (1.2-5.4) 09/27/16 06:47 [place] # 1.3 K/mm3 (0.0-0.8) H 09/27/16 06:47 Eos # 0.2 K/mm3 (0.0-0.4) 09/27/16 06:47 Baso # 0.1 K/mm3 (0.0-0.1) 09/27/16 06:47 Seg Neutrophils % 62.8 % (40.0-70.0) 09/27/16 06:47 Seg Neutrophils # 9.1 K/mm3 (1.8-7.7) H 09/27/16 06:47 PT 13.3 Sec. (12.2-14.9) 09/26/16 12:47 INR 1.02 (0.87-1.13) 09/26/16 12:47 APTT 25.6 Sec. (24.2-36.6) 09/26/16 12:47 D-Dimer 1440.06 ng/mlDDU (0-234) H 09/26/16 12:47 Sodium 143 mmol/L (137-145) 09/27/16 06:47 Potassium 3.1 mmol/L (3.6-5.0) L 09/27/16 06:47 Chloride 105.9 mmol/L (98-107) 09/27/16 06:47 Carbon Dioxide 19 mmol/L (22-30) L 09/27/16 06:47 Anion Gap 21 mmol/L 09/27/16 06:47 BUN 22 mg/dL (7-17) H 09/27/16 06:47 Creatinine 2.5 mg/dL (0.7-1.2) H 09/27/16 06:47 Estimated GFR 22 ml/min 09/27/16 06:47 BUN/Creatinine Ratio 8.80 % 09/27/16 06:47 Glucose 78 mg/dL (65-100) 09/27/16 06:47 POC Glucose 132 (70-105) H 09/28/16 11:33 Hemoglobin A1c 5.7 % (4-6) 09/27/16 06:47 Lactic Acid 1.2 mmol/L (0.7-2.0) 09/26/16 16:25 Calcium 9.1 mg/dL (8.4-10.2) 09/27/16 06:47 Magnesium 1.9 mg/dL (1.7-2.3) 09/26/16 12:47 Total Bilirubin 0.3 mg/dL (0.1-1.2) 09/27/16 06:47 Direct Bilirubin Not Reportable 09/26/16 12:47 Indirect Bilirubin 0.3 mg/dL 09/26/16 12:47 AST 15 units/L (5-40) 09/27/16 06:47 ALT 13 units/L (7-56) 09/27/16 06:47 Alkaline Phosphatase 76 units/L (35-129) 09/27/16 06:47 Total Creatine Kinase 19 units/L (30-135) L 09/26/16 12:40 CK-MB (CK-2) < 1.0 ng/mL (0.0-4.0) 09/26/16 12:40 CK-MB (CK-2) Rel Index 5.2 (0-4) H 09/26/16 12:40 Troponin T 0.032 ng/mL (0.00-0.029) H 09/26/16 12:40 NT-Pro-B Natriuret Pep 2569 pg/mL (0-900) H 09/26/16 12:47 Total Protein 5.8 g/dL (6.3-8.2) L 09/27/16 06:47 Albumin 2.6 g/dL (3.9-5) L 09/27/16 06:47 Albumin/Globulin Ratio 0.8 % 09/27/16 06:47 Triglycerides 182 mg/dL (2-149) H 09/26/16 12:40 Cholesterol 127 mg/dL (50-199) 09/26/16 12:40 LDL Cholesterol Direct 57 mg/dL (50-130) 09/26/16 12:40 HDL Cholesterol 34 mg/dL (40-59) L 09/26/16 12:40 Cholesterol/HDL Ratio 3.73 % 09/26/16 12:40 TSH 2.910 mlU/mL (0.270-4.200) 09/26/16 12:47 Free T4 1.09 ng/dL (0.76-1.46) 09/26/16 12:47 Urine Color Yellow (Yellow) 09/26/16 15:23 Urine Turbidity Turbid (Clear) 09/26/16 15:23 Urine pH 5.0 (5.0-7.0) 09/26/16 15:23 Ur Specific [place] 1.012 (1.003-1.030) 09/26/16 15:23 Urine Protein 100 mg/dl mg/dL (Negative) 09/26/16 15:23 Urine Glucose (UA) Neg mg/dL (Negative) 09/26/16 15:23 Urine Ketones Tr mg/dL (Negative) 09/26/16 15:23 Urine Blood Sm (Negative) 09/26/16 15:23 Urine Nitrite Neg (Negative) 09/26/16 15:23 Urine Bilirubin Neg (Negative) 09/26/16 15:23 Urine Urobilinogen < 2.0 mg/dL (<2.0) 09/26/16 15:23 Ur Leukocyte Esterase Lg (Negative) 09/26/16 15:23 Urine WBC (Auto) > 182.0 /HPF (0.0-6.0) H 09/26/16 15:23 Urine RBC (Auto) 20.0 /HPF (0.0-6.0) 09/26/16 15:23 Urine Bacteria (Auto) 1+ /HPF (Negative) 09/26/16 15:23 Urine WBC Clumps 3+ /HPF 09/26/16 15:23 Hyaline Casts 107 /LPF 09/26/16 15:23 Urine Mucus Few /HPF 09/26/16 15:23 Ur Yeast w Hyphae Few /HPF 09/26/16 15:23
[2016-09-28] MEDS ORDERED: VANCOMYCIN/NS 1 GM/250 ML 250 ML IV ONE (16:04)
[2016-09-28] MEDS ORDERED: VANCOMYCIN PHARMACY TO DOSE IV SCH (17:00)
[2016-09-28] MEDS: LEVEMIR SUB-Q SCH (22:30)
[2016-09-29] MEDS: CATAPRES PO SCH ×3 (00:14→22:00)
[2016-09-29] MEDS: NS/KCL 20MEQ 1,000 ML IV SCH ×2 (01:37→16:04)
[2016-09-29] MEDS: VANCOMYCIN VIAL 1,250 MG in NACL 0.9% 250ML 250 ML IV SCH (03:30)
[2016-09-29] MEDS: NOVOLOG SUB-Q SCH ×3 (08:00→17:00)
--- NOTE | 2016-09-29 09:35 | Progress Note ---
Assessment and Plan - Patient Problems (1) Bradycardia Current Visit: Yes Status: Acute Plan to address problem: Public Health Training Assistant was consulted and recommended stopping the beta chyna.Since the beta chyna has been stopped patient heart rate has returned to normal. Continue to hold beta chyna (2) Hypokalemia Current Visit: Yes Status: Acute Plan to address problem: We will follow labs. Will replete potassium today by mouth (3) Acute on chronic renal insufficiency Current Visit: No Status: Acute Plan to address problem: Spoke to son at length and he stated that patient had been seeing Dr. Dubon for her kidneys. Patient BUN/creatinine is 22 and 2.5. Unsure if this is her baseline kidney function. Will consult nephrology Dr. Dubon (4) Hypertension Current Visit: No Status: Chronic Qualifiers: Hypertension type: essential hypertension Qualified Code(s): I10 - Essential (primary) hypertension Plan to address problem: Blood pressure control today. Continue current regimen (5) Type 2 diabetes mellitus Current Visit: No Status: Chronic Qualifiers: Diabetes mellitus complication status: with hyperglycemia Diabetes mellitus prison insulin use: with exterminator helper use Qualified Code(s): E11.65 - Type 2 diabetes mellitus with hyperglycemia; Z79.4 - termite renewal inspector (current) use of insulin Plan to address problem: Continue current management. Follow sliding scale insulin. Follow Accu-Cheks (6) Bacteremia due to Gram-positive bacteria Current Visit: Yes Status: Acute Plan to address problem: Patient's discharge was held secondary to blood cultures that showed gram- positive cocci. Patient started on IV vancomycin. Patient is afebrile. We'll continue to follow blood cultures and white blood cell count History Interval history: Patient lying in bed state that she feels better today. Patient was talked to her son on the phone and I spoke with the son over the phone at length Hospitalist Physical - Constitutional Vitals: Temp Pulse Resp BP Pulse Ox 97.6 F 57 L 18 115/53 98 09/29/16 08:00 09/29/16 08:00 09/29/16 08:00 09/29/16 08:00 09/29/16 08:00 General appearance: Present: no acute distress, well-nourished, obese - EENT Eyes: Present: PERRL, EOM intact ENT: hearing intact, clear oral mucosa - Neck Neck: Present: supple, normal ROM - Respiratory Respiratory effort: normal Respiratory: bilateral: CTA - Cardiovascular Rhythm: regular Heart Sounds: Present: S1 & S2 - Abdominal General gastrointestinal: soft, non-tender, non-distended, normal bowel sounds - Psychiatric Psychiatric: appropriate mood/affect, intact judgment & insight - Neurologic Neurologic: CNII-XII intact Results - Labs CBC & Chem 7: 09/27/16 06:47 09/27/16 06:47 Labs: Laboratory Last Values WBC 14.4 K/mm3 (4.5-11.0) H 09/27/16 06:47 RBC 3.29 M/mm3 (3.65-5.03) L 09/27/16 06:47 Hgb 9.8 gm/dl (10.1-14.3) L 09/27/16 06:47 Hct 29.8 % (30.3-42.9) L 09/27/16 06:47 MCV 91 fl (79-97) 09/27/16 06:47 MCH 30 pg (28-32) 09/27/16 06:47 MCHC 33 % (30-34) 09/27/16 06:47 RDW 18.3 % (13.2-15.2) H 09/27/16 06:47 Plt Count 455 K/mm3 (140-440) H 09/27/16 06:47 Lymph % (Auto) 26.7 % (13.4-35.0) 09/27/16 06:47 [place] % (Auto) 8.7 % (0.0-7.3) H 09/27/16 06:47 Eos % (Auto) 1.1 % (0.0-4.3) 09/27/16 06:47 Baso % (Auto) 0.7 % (0.0-1.8) 09/27/16 06:47 Lymph # 3.9 K/mm3 (1.2-5.4) 09/27/16 06:47 [place] # 1.3 K/mm3 (0.0-0.8) H 09/27/16 06:47 Eos # 0.2 K/mm3 (0.0-0.4) 09/27/16 06:47 Baso # 0.1 K/mm3 (0.0-0.1) 09/27/16 06:47 Seg Neutrophils % 62.8 % (40.0-70.0) 09/27/16 06:47 Seg Neutrophils # 9.1 K/mm3 (1.8-7.7) H 09/27/16 06:47 PT 13.3 Sec. (12.2-14.9) 09/26/16 12:47 INR 1.02 (0.87-1.13) 09/26/16 12:47 APTT 25.6 Sec. (24.2-36.6) 09/26/16 12:47 D-Dimer 1440.06 ng/mlDDU (0-234) H 09/26/16 12:47 Sodium 143 mmol/L (137-145) 09/27/16 06:47 Potassium 3.1 mmol/L (3.6-5.0) L 09/27/16 06:47 Chloride 105.9 mmol/L (98-107) 09/27/16 06:47 Carbon Dioxide 19 mmol/L (22-30) L 09/27/16 06:47 Anion Gap 21 mmol/L 09/27/16 06:47 BUN 22 mg/dL (7-17) H 09/27/16 06:47 Creatinine 2.5 mg/dL (0.7-1.2) H 09/27/16 06:47 Estimated GFR 22 ml/min 09/27/16 06:47 BUN/Creatinine Ratio 8.80 % 09/27/16 06:47 Glucose 78 mg/dL (65-100) 09/27/16 06:47 POC Glucose 103 (70-105) 09/29/16 08:15 Hemoglobin A1c 5.7 % (4-6) 09/27/16 06:47 Lactic Acid 1.2 mmol/L (0.7-2.0) 09/26/16 16:25 Calcium 9.1 mg/dL (8.4-10.2) 09/27/16 06:47 Magnesium 1.9 mg/dL (1.7-2.3) 09/26/16 12:47 Total Bilirubin 0.3 mg/dL (0.1-1.2) 09/27/16 06:47 Direct Bilirubin Not Reportable 09/26/16 12:47 Indirect Bilirubin 0.3 mg/dL 09/26/16 12:47 AST 15 units/L (5-40) 09/27/16 06:47 ALT 13 units/L (7-56) 09/27/16 06:47 Alkaline Phosphatase 76 units/L (35-129) 09/27/16 06:47 Total Creatine Kinase 19 units/L (30-135) L 09/26/16 12:40 CK-MB (CK-2) < 1.0 ng/mL (0.0-4.0) 09/26/16 12:40 CK-MB (CK-2) Rel Index 5.2 (0-4) H 09/26/16 12:40 Troponin T 0.032 ng/mL (0.00-0.029) H 09/26/16 12:40 NT-Pro-B Natriuret Pep 2569 pg/mL (0-900) H 09/26/16 12:47 Total Protein 5.8 g/dL (6.3-8.2) L 09/27/16 06:47 Albumin 2.6 g/dL (3.9-5) L 09/27/16 06:47 Albumin/Globulin Ratio 0.8 % 09/27/16 06:47 Triglycerides 182 mg/dL (2-149) H 09/26/16 12:40 Cholesterol 127 mg/dL (50-199) 09/26/16 12:40 LDL Cholesterol Direct 57 mg/dL (50-130) 09/26/16 12:40 HDL Cholesterol 34 mg/dL (40-59) L 09/26/16 12:40 Cholesterol/HDL Ratio 3.73 % 09/26/16 12:40 TSH 2.910 mlU/mL (0.270-4.200) 09/26/16 12:47 Free T4 1.09 ng/dL (0.76-1.46) 09/26/16 12:47 Urine Color Yellow (Yellow) 09/26/16 15:23 Urine Turbidity Turbid (Clear) 09/26/16 15:23 Urine pH 5.0 (5.0-7.0) 09/26/16 15:23 Ur Specific [place] 1.012 (1.003-1.030) 09/26/16 15:23 Urine Protein 100 mg/dl mg/dL (Negative) 09/26/16 15:23 Urine Glucose (UA) Neg mg/dL (Negative) 09/26/16 15:23 Urine Ketones Tr mg/dL (Negative) 09/26/16 15:23 Urine Blood Sm (Negative) 09/26/16 15:23 Urine Nitrite Neg (Negative) 09/26/16 15:23 Urine Bilirubin Neg (Negative) 09/26/16 15:23 Urine Urobilinogen < 2.0 mg/dL (<2.0) 09/26/16 15:23 Ur Leukocyte Esterase Lg (Negative) 09/26/16 15:23 Urine WBC (Auto) > 182.0 /HPF (0.0-6.0) H 09/26/16 15:23 Urine RBC (Auto) 20.0 /HPF (0.0-6.0) 09/26/16 15:23 Urine Bacteria (Auto) 1+ /HPF (Negative) 09/26/16 15:23 Urine WBC Clumps 3+ /HPF 09/26/16 15:23 Hyaline Casts 107 /LPF 09/26/16 15:23 Urine Mucus Few /HPF 09/26/16 15:23 Ur Yeast w Hyphae Few /HPF 09/26/16 15:23
[2016-09-29] MEDS: LOVENOX SUB-Q SCH (10:00)
[2016-09-29] MEDS: NEURONTIN PO SCH ×2 (10:00→22:00)
[2016-09-29] MEDS: PLAVIX PO SCH (10:00)
[2016-09-29] MEDS: NORVASC PO SCH (10:00)
[2016-09-29] MEDS: LASIX PO SCH (10:00)
[2016-09-29] MEDS: COZAAR PO SCH (10:00)
--- NOTE | 2016-09-29 10:12 | Progress Note ---
Assessment and Plan Syncope: Description suggestive of vaso-vagal etiology Sinus bradycardia with non-signficant pauses noted on telemetry: Improved since beta chyna stopped. Hypokalemia Leukocytosis Bilateral nephrolithiasis s/p recent ureteral stent exchange Hx of CAD s/p remote PCI in [place] (unknown anatomy) normal LVEF on echo 09/2016 No significant ischemia based on MPI Chronic renal disease Dementia Bacteremia Recommendations: Continue to hold beta chyna and do not restart No further cardiac testing or intervention necessary at this time. Subjective Date of service: 09/29/16 Interval history: No cardiac complaints. Telemetry reviewed: No further pauses. Objective Vital Signs Temp Pulse Pulse Pulse Resp BP BP 09/29/16 08:00 97.6 F 57 L 18 115/53 09/29/16 04:00 98.2 F 59 L 18 113/47 09/29/16 00:14 63 109/50 09/29/16 00:00 98.3 F 66 18 107/48 09/28/16 22:00 20 09/28/16 20:00 97.6 F 63 18 109/50 09/28/16 15:20 97.7 F 63 20 105/47 09/28/16 12:05 97.5 F L 65 20 149/67 09/28/16 11:23 66 145/68 09/28/16 11:20 66 145/68 09/28/16 11:19 66 145/68 Pulse Ox 09/29/16 08:00 98 09/29/16 04:00 100 09/29/16 00:14 09/29/16 00:00 100 09/28/16 22:00 09/28/16 20:00 99 09/28/16 15:20 09/28/16 12:05 09/28/16 11:23 09/28/16 11:20 09/28/16 11:19 - Physical Examination HEENT: Positive: PERRL Neck: Positive: trachea midline Cardiac: Positive: Reg Rate and Rhythm Lungs: Positive: clear to auscultation Extremities: Absent: edema
--- NOTE | 2016-09-29 17:24 | Consultation ---
History of Present Illness - Reason for Consult Consult date: 09/29/16 acute renal failure, chronic renal failure Requesting physician: REY PENA - History of Present Illness Mrs. Fox Dailey is 81-year-old -Green[place]ic female with past medical history significant for diabetes, hypertension and chronic kidney disease is admitted with a syncopal episode. Patient normally follows up with Dr. Dubon in the office. She was found to have kidney stones for which she is being followed by Dr. Garcia . She is now admitted with a syncopal episode. Review of records indicate that her serum creatinine was approximately 1.0 earlier this month. Patient is a poor historian. Difficult to get much information from her. Information obtained from patient's son at bedside Past History Past Medical History: diabetes, hypertension, renal failure Past Surgical History: No surgical history Social history: no significant social history, other (denies smoking or drinking ) Family history: other (no significant family history of kidney disease) Medications and Allergies Allergies Allergy/AdvReac Type Severity Reaction Status Date / Time No Known Allergies Allergy Verified 08/14/15 13:19 Home Medications Medication Instructions Recorded Confirmed Last Taken Type AtorvaSTATin [Lipitor] 20 mg PO QHS 09/04/16 09/26/16 09/04/16 History Clopidogrel [Plavix] 75 mg PO QDAY 09/04/16 09/26/16 09/11/16 History Furosemide [Lasix TAB] 40 mg PO QDAY 09/04/16 09/26/16 09/04/16 History Gabapentin [Neurontin] 400 mg PO BID 09/04/16 09/26/16 09/04/16 History Insulin Lispro [Humalog Kwikpen 8 unit SC QAM 09/04/16 09/26/16 09/04/16 History 200 UNITS/ML] amLODIPine [Norvasc] 10 mg PO DAILY 09/04/16 09/26/16 09/04/16 History Multivitamin Tab W-MINERAL 1 each PO QDAY #30 tablet 09/14/16 09/26/16 Unknown Rx [Multiple Vitamin/Mineral (Theragran M)] Multivitamin Tab [Multiple Vitamin 1 each PO QDAY 09/26/16 09/26/16 Unknown History TAB (Theragran)] Active Meds: Active Medications Acetaminophen (Tylenol) 650 mg PO Q4H PRN PRN Reason: Pain MILD(1-3)/Fever >100.5/HUGHES Amlodipine Besylate (Norvasc) 10 mg PO DAILY [facility] Last Admin: 09/29/16 10:00 Dose: Not Given Bisacodyl (Dulcolax) 10 mg MS QDAY PRN PRN Reason: Constipation unrelieved by MOM Clonidine HCl (Catapres) 0.1 mg PO BID [facility] Last Admin: 09/29/16 10:00 Dose: Not Given Clopidogrel Bisulfate (Plavix) 75 mg PO QDAY [facility] Last Admin: 09/29/16 10:00 Dose: 75 mg Enoxaparin Sodium (Lovenox) 30 mg SUB-Q QDAY [facility] Last Admin: 09/29/16 10:00 Dose: 30 mg Furosemide (Lasix) 40 mg PO QDAY [facility] Last Admin: 09/29/16 10:00 Dose: 40 mg Gabapentin (Neurontin) 400 mg PO BID [facility] Last Admin: 09/29/16 10:00 Dose: 400 mg Hydromorphone HCl (Dilaudid) 0.5 mg IV Q3H PRN PRN Reason: Pain , Severe (7-10) Potassium Chloride/Sodium Chloride (Ns/Kcl 20meq) 1,000 mls @ 75 mls/hr IV DIRECT [facility] Last Admin: 09/29/16 16:04 Dose: 75 mls/hr Vancomycin HCl 1,250 mg/ (Sodium Chloride) 250 mls @ 166.667 mls/hr IV Q36H [facility] Last Admin: 09/29/16 03:30 Dose: 166.667 mls/hr Insulin Aspart (Novolog) 5 units SUB-Q AC [facility] Last Admin: 09/29/16 12:00 Dose: Not Given Insulin Detemir (Levemir) 5 units SUB-Q QHS [facility] Last Admin: 09/28/16 22:30 Dose: 5 units Losartan Potassium (Cozaar) 100 mg PO QDAY [facility] Last Admin: 09/29/16 10:00 Dose: 100 mg Magnesium Hydroxide (Milk Of Magnesia) 30 ml PO Q4H PRN PRN Reason: Constipation Multivitamins/Minerals (Theragran-M Tab) 1 each PO QDAY [facility] Last Admin: 09/28/16 11:35 Dose: 1 each Ondansetron HCl (Zofran) 4 mg IV Q8H PRN PRN Reason: N/V unrelieved by Flora Vancomycin HCl (Vancomycin Pharmacy To Dose) 1 each IV PKCONSULT CHIARA PRN Reason: Protocol Review of Systems All systems: negative (negative except as noted above) Exam - Vital Signs Vital signs: Vital Signs Temp Pulse BP Pulse Ox 98.4 F 53 L 114/39 100 09/26/16 11:52 09/26/16 11:52 09/26/16 11:52 09/26/16 11:52 - General Appearance General appearance: well-developed, well-nourished, appears stated age EENT: PERRL, mucous membranes moist Neck: Present: neck supple, trachea midline Respiratory: Clear to Ascultation Heart: regular, normal heart rate Gastrointestinal: Present: normal, normoactive bowel sounds Integumentary: no rash, other (1-2+ pitting edema) Results - Lab Results 09/27/16 06:47 09/27/16 06:47 Most recent lab results Calcium 9.1 mg/dL (8.4-10.2) 09/27/16 06:47 Magnesium 1.9 mg/dL (1.7-2.3) 09/26/16 12:47 Assessment and Plan Impression * Acute renal failure * Chronic kidney disease * Bilateral kidney stones * Syncope * Hypertension * Diabetes Recommendations * Shall check a fractional excretion of sodium. * Her UA shows pyuria and also 2+ dipstick protein. He may have underlying diabetic nephropathy * Continue gentle IV hydration * Hold off on diuretics as well as SEAN inhibitor or ARB's at this time * Shall check a renal ultrasound to rule out obstructive uropathy * Avoid nephrotoxins * Strict intake and output * Monitor patient's fluid status, renal function and electrolytes closely * Thank you very much for the consultation. Shall follow along with you
[2016-09-29] MEDS: THERAGRAN-M Tab PO SCH (19:00)
[2016-09-29 19:06] LABS: BUN/Creatinine Ratio 9.47; Calcium 8.8 mg/dL (8.4-10.2); Chloride 109.4 mmol/L (98-107); Potassium 3.4 mmol/L (3.6-5.0)
[2016-09-29] MEDS: LEVEMIR SUB-Q SCH (22:53)
[2016-09-30 02:15] LABS: Fractional Sodium Excretion 2.1
[2016-09-30 05:13] LABS: Albumin 2.4 g/dL (3.9-5); Albumin/Globulin Ratio 0.9 %; BUN/Creatinine Ratio 9.44; Bilirubin,Total 0.3 mg/dL (0.1-1.2); Calcium 8.7 mg/dL (8.4-10.2); Chloride 111.1 mmol/L (98-107); Potassium 3.4 mmol/L (3.6-5.0); Total Protein 5.1 g/dL (6.3-8.2)
[2016-09-30 05:17] LABS: Basophils % (Auto) 0.7 % (0.0-1.8); Eosinophils % (Auto) 2.9 % (0.0-4.3); Hematocrit 25.7 % (30.3-42.9); Hemoglobin 8.6 gm/dl (10.1-14.3); Mean Corpuscular HGB Conc 33 % (30-34); Mean Corpuscular Hemoglobin 30 pg (28-32); Mean Corpuscular Volume 89 fl (79-97); Platelet Count 390 K/mm3 (140-440); Red Blood Count 2.88 M/mm3 (3.65-5.03); Red Cell Distribution Width 17.5 % (13.2-15.2); White Blood Count 8.9 K/mm3 (4.5-11.0)
[2016-09-30] MEDS: NS/KCL 20MEQ 1,000 ML IV SCH (06:10)
[2016-09-30] MEDS: NOVOLOG SUB-Q SCH ×3 (08:50→16:30)
--- NOTE | 2016-09-30 08:52 | Progress Note ---
Assessment and Plan Impression * Acute renal failure * Chronic kidney disease * Bilateral kidney stones * Syncope * Hypertension * Diabetes * UTI--with yeast Recommendations * follow up renal ultrasound noted, will give diflucan with stones and abnormal ua * cr is better today * Her UA shows pyuria and also 2+ dipstick protein. He may have underlying diabetic nephropathy * Continue gentle IV hydration * continue IV Abx * Hold off on diuretics as well as SEAN inhibitor or ARB's at this time * Avoid nephrotoxins * Strict intake and output * Monitor patient's fluid status, renal function and electrolytes closely Subjective Date of service: 09/30/16 Principal diagnosis: maria elena, nephrolithiasis Interval history: resting well in bed today Objective - Exam Narrative Exam: General appearance: well-developed, well-nourished, appears stated age EENT: PERRL, mucous membranes moist Neck: Present: neck supple, trachea midline Respiratory: Clear to Ascultation Heart: regular, normal heart rate Gastrointestinal: Present: normal, normoactive bowel sounds Integumentary: no rash, other (1+ pitting edema) - Vital Signs Vital signs: Vital Signs - 12hr 09/29/16 09/30/16 09/30/16 22:00 00:00 04:00 Temperature 98.6 F 97.6 F Pulse Rate 61 Pulse Rate [ 62 58 L From Monitor] Respiratory 18 20 Rate Respiratory 20 Rate [no pain] Blood Pressure 124/66 Blood Pressure 121/60 106/61 [Right Arm] O2 Sat by Pulse 100 99 Oximetry - Lab 09/30/16 03:51 09/30/16 03:51 Most recent lab results Calcium 8.7 mg/dL (8.4-10.2) 09/30/16 03:51 Magnesium 1.9 mg/dL (1.7-2.3) 09/26/16 12:47 Urine Creatinine 59.4 mg/dL (0.1-20.0) H 09/30/16 01:44 Urine Sodium 103 mEq/L 09/30/16 01:44
[2016-09-30] MEDS ORDERED: NACL 0.45% 1000 ML 1,000 ML with KCL 20 MEQ IV SCH (09:00)
--- NOTE | 2016-09-30 09:37 | Progress Note ---
Assessment and Plan - Patient Problems (1) Bradycardia Current Visit: Yes Status: Acute Plan to address problem: Letter Of Credit Clerk was consulted and recommended stopping the beta chyna.Since the beta chyna has been stopped patient heart rate has returned to normal. Continue to hold beta chyna (2) Hypokalemia Current Visit: Yes Status: Acute Plan to address problem: We will follow labs. Will replete potassium today by mouth (3) Acute on chronic renal insufficiency Current Visit: No Status: Acute Plan to address problem: Spoke to son at length and he stated that patient had been seeing Dr. Dubon for her kidneys. Patient BUN/creatinine is 22 and 2.5. Unsure if this is her baseline kidney function. Will consult nephrology Dr. Dubon. Creatinine today is 1.8 (4) Hypertension Current Visit: No Status: Chronic Qualifiers: Hypertension type: essential hypertension Qualified Code(s): I10 - Essential (primary) hypertension Plan to address problem: Blood pressure control today. Continue current regimen (5) Type 2 diabetes mellitus Current Visit: No Status: Chronic Qualifiers: Diabetes mellitus complication status: with hyperglycemia Diabetes mellitus longterm insulin use: with longterm use Qualified Code(s): E11.65 - Type 2 diabetes mellitus with hyperglycemia; Z79.4 - prison (current) use of insulin (6) Bacteremia due to Gram-positive bacteria Current Visit: Yes Status: Acute Plan to address problem: Patient's discharge was held secondary to blood cultures that showed gram- positive cocci. Patient started on IV vancomycin. Patient is afebrile. We'll continue to follow blood cultures and white blood cell count History Interval history: Patient lying in bed state that she feels better today. Hospitalist Physical - Constitutional Vitals: Temp Pulse Resp BP Pulse Ox 97.6 F 58 L 20 106/61 99 09/30/16 04:00 09/30/16 04:00 09/30/16 04:00 09/30/16 04:00 09/30/16 04:00 General appearance: Present: no acute distress, well-nourished, obese - EENT Eyes: Present: PERRL, EOM intact ENT: hearing intact, clear oral mucosa - Neck Neck: Present: supple, normal ROM - Respiratory Respiratory effort: normal Respiratory: bilateral: CTA - Cardiovascular Rhythm: regular Heart Sounds: Present: S1 & S2 - Abdominal General gastrointestinal: soft, non-tender, non-distended, normal bowel sounds - Psychiatric Psychiatric: appropriate mood/affect, intact judgment & insight - Neurologic Neurologic: CNII-XII intact, moves all extremities Results - Labs CBC & Chem 7: 09/30/16 03:51 09/30/16 03:51 Labs: Laboratory Last Values WBC 8.9 K/mm3 (4.5-11.0) 09/30/16 03:51 RBC 2.88 M/mm3 (3.65-5.03) L 09/30/16 03:51 Hgb 8.6 gm/dl (10.1-14.3) L 09/30/16 03:51 Hct 25.7 % (30.3-42.9) L 09/30/16 03:51 MCV 89 fl (79-97) 09/30/16 03:51 MCH 30 pg (28-32) 09/30/16 03:51 MCHC 33 % (30-34) 09/30/16 03:51 RDW 17.5 % (13.2-15.2) H 09/30/16 03:51 Plt Count 390 K/mm3 (140-440) 09/30/16 03:51 Lymph % (Auto) 31.3 % (13.4-35.0) 09/30/16 03:51 Nance % (Auto) 8.4 % (0.0-7.3) H 09/30/16 03:51 Eos % (Auto) 2.9 % (0.0-4.3) 09/30/16 03:51 Baso % (Auto) 0.7 % (0.0-1.8) 09/30/16 03:51 Lymph # 2.8 K/mm3 (1.2-5.4) 09/30/16 03:51 Nance # 0.7 K/mm3 (0.0-0.8) 09/30/16 03:51 Eos # 0.3 K/mm3 (0.0-0.4) 09/30/16 03:51 Baso # 0.1 K/mm3 (0.0-0.1) 09/30/16 03:51 Seg Neutrophils % 56.7 % (40.0-70.0) 09/30/16 03:51 Seg Neutrophils # 5.1 K/mm3 (1.8-7.7) 09/30/16 03:51 PT 13.3 Sec. (12.2-14.9) 09/26/16 12:47 INR 1.02 (0.87-1.13) 09/26/16 12:47 APTT 25.6 Sec. (24.2-36.6) 09/26/16 12:47 D-Dimer 1440.06 ng/mlDDU (0-234) H 09/26/16 12:47 Sodium 146 mmol/L (137-145) H 09/30/16 03:51 Potassium 3.4 mmol/L (3.6-5.0) L 09/30/16 03:51 Chloride 111.1 mmol/L (98-107) H 09/30/16 03:51 Carbon Dioxide 22 mmol/L (22-30) 09/30/16 03:51 Anion Gap 16 mmol/L 09/30/16 03:51 BUN 17 mg/dL (7-17) 09/30/16 03:51 Creatinine 1.8 mg/dL (0.7-1.2) H 09/30/16 03:51 Estimated GFR 33 ml/min 09/30/16 03:51 BUN/Creatinine Ratio 9.44 % 09/30/16 03:51 Glucose 83 mg/dL (65-100) 09/30/16 03:51 POC Glucose 86 (70-105) 09/30/16 08:50 Hemoglobin A1c 5.7 % (4-6) 09/27/16 06:47 Lactic Acid 1.2 mmol/L (0.7-2.0) 09/26/16 16:25 Calcium 8.7 mg/dL (8.4-10.2) 09/30/16 03:51 Magnesium 1.9 mg/dL (1.7-2.3) 09/26/16 12:47 Total Bilirubin 0.3 mg/dL (0.1-1.2) 09/30/16 03:51 Direct Bilirubin Not Reportable 09/26/16 12:47 Indirect Bilirubin 0.3 mg/dL 09/26/16 12:47 AST 14 units/L (5-40) 09/30/16 03:51 ALT 11 units/L (7-56) 09/30/16 03:51 Alkaline Phosphatase 67 units/L (35-129) 09/30/16 03:51 Total Creatine Kinase 19 units/L (30-135) L 09/26/16 12:40 CK-MB (CK-2) < 1.0 ng/mL (0.0-4.0) 09/26/16 12:40 CK-MB (CK-2) Rel Index 5.2 (0-4) H 09/26/16 12:40 Troponin T 0.032 ng/mL (0.00-0.029) H 09/26/16 12:40 NT-Pro-B Natriuret Pep 2569 pg/mL (0-900) H 09/26/16 12:47 Total Protein 5.1 g/dL (6.3-8.2) L 09/30/16 03:51 Albumin 2.4 g/dL (3.9-5) L 09/30/16 03:51 Albumin/Globulin Ratio 0.9 % 09/30/16 03:51 Triglycerides 182 mg/dL (2-149) H 09/26/16 12:40 Cholesterol 127 mg/dL (50-199) 09/26/16 12:40 LDL Cholesterol Direct 57 mg/dL (50-130) 09/26/16 12:40 HDL Cholesterol 34 mg/dL (40-59) L 09/26/16 12:40 Cholesterol/HDL Ratio 3.73 % 09/26/16 12:40 TSH 2.910 mlU/mL (0.270-4.200) 09/26/16 12:47 Free T4 1.09 ng/dL (0.76-1.46) 09/26/16 12:47 Urine Color Yellow (Yellow) 09/26/16 15:23 Urine Turbidity Turbid (Clear) 09/26/16 15:23 Urine pH 5.0 (5.0-7.0) 09/26/16 15:23 Ur Specific [place] 1.012 (1.003-1.030) 09/26/16 15:23 Urine Protein 100 mg/dl mg/dL (Negative) 09/26/16 15:23 Urine Glucose (UA) Neg mg/dL (Negative) 09/26/16 15:23 Urine Ketones Tr mg/dL (Negative) 09/26/16 15:23 Urine Blood Sm (Negative) 09/26/16 15:23 Urine Nitrite Neg (Negative) 09/26/16 15:23 Urine Bilirubin Neg (Negative) 09/26/16 15:23 Urine Urobilinogen < 2.0 mg/dL (<2.0) 09/26/16 15:23 Ur Leukocyte Esterase Lg (Negative) 09/26/16 15:23 Urine WBC (Auto) > 182.0 /HPF (0.0-6.0) H 09/26/16 15:23 Urine RBC (Auto) 20.0 /HPF (0.0-6.0) 09/26/16 15:23 Urine Bacteria (Auto) 1+ /HPF (Negative) 09/26/16 15:23 Urine WBC Clumps 3+ /HPF 09/26/16 15:23 Hyaline Casts 107 /LPF 09/26/16 15:23 Urine Mucus Few /HPF 09/26/16 15:23 Ur Yeast w Hyphae Few /HPF 09/26/16 15:23 Urine Creatinine 59.4 mg/dL (0.1-20.0) H 09/30/16 01:44 Urine Sodium 103 mEq/L 09/30/16 01:44 Fraction Sodium Excret 2.1 09/30/16 01:44
--- NOTE | 2016-09-30 11:02 | Ultrasound Report ---
ULTRASOUND RENAL HISTORY: Acute renal failure. TECHNIQUE: Transabdominal ultrasound. FINDINGS: Compared to the renal ultrasound dated 06/02/12. The right kidney measures 12.6 cm. A 3.0 cm cyst has developed in the inferior right kidney since the previous exam. Tiny bilateral calyceal stones are suspected. No mass or hydronephrosis. The left kidney measures 9.9 cm. No cyst or mass. Left nephrolithiasis also identified. No evidence for hydronephrosis or perinephric fluid. The bladder is decompressed with Stratton catheter. IMPRESSION: Bilateral nephrolithiasis. No hydronephrosis. 3.0 cm right renal cyst.
--- NOTE | 2016-09-30 11:02 | Query-Infection ---
Dear Dr. Saud Shrestha MD Date: September 30, 2016 Pill Maker/CDS: Danish Dennison Phone#: Exercise your independent professional judgment when responding to this query. Questions asked do not imply a particular answer is desired or expected. We greatly appreciate your clarification on this issue. Clinical Documentation States: 81 y/o AAF with history of CAD, hyperlipidemia, DM, HTN, indwelling Stratton catheter & bedridden is admitted for syncope. H&P by Dr. Barr on 09/26 states : "Acute renal failure","Ureteric stent"," patient was due to get his ureteral stent removal today" PN by Dr. Moreno on 09/28 states : "--Gram-positive bacteremia 1:2" PN by Dr. Shrestha on 09/29 states : "(6) Bacteremia due to Gram-positive bacteria ","Patient's discharge was held secondary to blood cultures that showed gram- positive cocci","Patient started on IV Vancomycin","Patient is afebrile" Clinical findings show: (please check applicable parameters) Blood Culture Preliminary (09/26) : "Coag Negative Staphylococcus" Urine,Catheterized Indwelling Catheter Culture (09/26) : "Enterococcus Durans/ Hirae" 09/26 09/27 09/30 WBC 12.4 H 14.4 H 8.9 SegN% 75.6 H 62.8 56.7 D-Dimer 1440.06 H Lactate 1.2 Medications : IV Vancomycin 1250mg q36h CHIARA, IV Ceftriaxone (09/26 - 09/28, Discontinued) 1g q24h CHIARA 3 General parameters [ ] Fever (core temp >38.30C or 100.40F) [ ] Hypothermia (core temp <36C) [ ] Heart rate >90 bpm [ ] Tachypnea: >20 bpm or pCO2 < 32 mmHg [ ] Altered mental status [ ] Significant edema / +ve fluid balance (>20 ml/kg 24 h) [ ] Hyperglycemia (Bl. glucose >110 mg/dl) w/o diabetes Inflammatory parameters [ ] Leukocytosis (white blood cell count >12,000/l) [ ] Leukopenia (white blood cell count <4,000/l) [ ] Bandemia (immature WBC > 10%) [ ] Leucocyte Left Shift [ ] Plasma procalcitonin>2 SD above the normal value Hemodynamic and tissue perfusion parameters [ ] Arterial hypotension(SBP <90 mmHg, MAP <70 mmHg,or a SBP drop >40 mmHg in adults) [ ] Hyperlactatemia (>3 mmol/l) [ ] Anion Gap (> 11mEG/l) [ ] Decreased capillary refill or mottling Organ dysfunction parameters [ ] Arterial hypoxemia (PaO2/FIO2 <300) [ ] Creatinine increase =0.5 mg/dl [ ] Acute oliguria (urine output <0.5 ml | kg |h or 45 mM/l for at least 2 hrs) [ ] Coagulation abnormalities (INR >1.5 or activated partial thromboplastin time >60 s) [ ] Ileus (absent jacqueline wel sounds) [ ] Thrombocytopenia (platelet count <100,000/l) [ ] Hyperbilirubinemia (plasma total bilirubin >4 mg/dl) According to the clinical indications above, can Bacteremia be further specified? If so, please indicate below and in your Progress Notes and/ or Discharge Summary. Indicate if the condition was present on admission. PHYSICIAN RESPONSE: [ ] Sepsis [ ] Severe Sepsis [ ] Septic Shock [ ] Septicemia [x ] Sepsis now resolved [ ] SIRS due to non-infectious cause with organ dysfunction [ ] SIRS due to non-infectious cause without organ dysfunction [ ] Other: [ ] Comment/Explanation: Present on Admission: [ ] Yes (Y) [x ] Clinically undeterminable (W) [ ] No (N) [ ] Ruled Out Please also document response in your Progress Notes and/or Discharge Summary and indicate if the condition was present on admission Notes: SIRS/ SIRS WITH ORGAN DYSFUNCTION Systemic inflammatory response syndrome (SIRS) generally refers to the systemic response to trauma/gordon or other insult such as Acute Myocardial Infarction, Acute Pancreatitis, and Major Surgery with symptoms including fever, tachycardia , tachypnea, and leukocytosis (1). BACTEREMIA Presence of viable bacteria in the circulating blood (2). This term is reserved for patients that do not manifest above SIRS response. SEPTICEMIA Generally refers to a systemic disease associated with the presence of pathological microorganisms or toxins in the blood, which can include bacteria, viruses, fungi or other organisms (1). SEPSIS Generally refers to SIRS due infection (1). SEVERE SEPSIS Generally refers to sepsis associated with acute organ dysfunction (1). SEPTIC SHOCK Generally refers to circulatory failure associated with severe sepsis (2), and defined as hypotension or hypoperfusion despite adequate fluid resuscitation (1 hour) (3). REFERENCES: 1. [place] [employer]/Society of Critical Care Medicine Consensus Conference. Definitions for sepsis and organ failure and guidelines for the use of innovative therapies in sepsis. Critical Care Med 1992;20:864 - 74. 2. Vernon castillo MM, Delfin MP, Dennis KELSEA, Vitaliy E, Usama D, Kobe D, Alex J, Gilma SM , Jamir SANTOS, Chong G; International Sepsis Definitions Conference. 2001 SCCM/ESICM/ACCP/ATS/SIS International Sepsis Definitions Conference. Intensive Care Med. 2003 Apr;29(4):530-8. Epub 2002Nov 26. Review. PubMed PMID:[id number] 3. ICD-9-CM Official Guidelines for Coding and Reporting 4. Medscape Drugs, Diseases and Procedures references 5. [employer] Textbook of Internal Medicine. 18th Edition MTDD
--- NOTE | 2016-09-30 11:12 | Consultation ---
History of Present Illness - Reason for Consult Consult date: 09/30/16 bacteremia - History of Present Illness Ms Dailey is a 81y/o AA female who resides in a private residence and has a known history of DM2, HTN, CKD, documented obstructive nephropathy with kidney stones and previous left hydronephrosis, indwelling J stent, chronic Stratton catheter, diverticulosis, gout, and dementia. She presents for admission to [facility] with syncope. She is now found with positive blood cultures for coagulase-negative Staphylococcus ( ott -09/26) and a positive urine culture for VRE. Ms Dailey experienced an apparent syncopal episode while at her urology physician' s (Dr. Gutierrez) office. She had undergone a recent cystoscopy exam with laser therapy for a left ureteral stone. She had J stent replacement at that time (06/17) with previous stent placement in April of last year. She had been seen by my practice in the past for a complicated UTI secondary to Escherichia coli. Following admission now she is being followed by cardiology with what is thought to have been a vasovagal episode. Blood cultures drawn on admission from 09/26 showed 2 sets positive for coag- negative staph. Her urine analysis on admission showed greater than 182 white cells with 3+ white cell clumps and 1+ bacteria. Urine culture is growing Enterococcus durans/Hirae (VRE). CBC included a white count of 14,400 with 63% segs, H&H is 9.8 and 29.8 and platelet count 455,000. BUN and creatinine on admission is 22 and 2.5. Currently the patient denies any headache, cough, shortness of breath, chest pain, abdominal pain, nausea, vomiting, muscle or joint pain. She does have an indwelling Stratton catheter which has been in place for several months time in addition to her known left sided renal stent. The patient has most recently been followed on vancomycin and ceftriaxone. She has been afebrile. White count has normalized. The patient is now seen for further ID follow and recommendations. Past History Past Medical History: diabetes, hypertension, renal failure Past Surgical History: No surgical history Social history: no significant social history, other (denies smoking or drinking ) Family history: other (no significant family history of kidney disease) Medications and Allergies Allergies Allergy/AdvReac Type Severity Reaction Status Date / Time No Known Allergies Allergy Verified 08/14/15 13:19 Home Medications Medication Instructions Recorded Confirmed Last Taken Type AtorvaSTATin [Lipitor] 20 mg PO QHS 09/04/16 09/26/16 09/04/16 History Clopidogrel [Plavix] 75 mg PO QDAY 09/04/16 09/26/16 09/11/16 History Furosemide [Lasix TAB] 40 mg PO QDAY 09/04/16 09/26/16 09/04/16 History Gabapentin [Neurontin] 400 mg PO BID 09/04/16 09/26/16 09/04/16 History Insulin Lispro [Humalog Kwikpen 8 unit SC QAM 09/04/16 09/26/16 09/04/16 History 200 UNITS/ML] amLODIPine [Norvasc] 10 mg PO DAILY 09/04/16 09/26/16 09/04/16 History Multivitamin Tab W-MINERAL 1 each PO QDAY #30 tablet 09/14/16 09/26/16 Unknown Rx [Multiple Vitamin/Mineral (Theragran M)] Multivitamin Tab [Multiple Vitamin 1 each PO QDAY 09/26/16 09/26/16 Unknown History TAB (Theragran)] Active Meds: Active Medications Acetaminophen (Tylenol) 650 mg PO Q4H PRN PRN Reason: Pain MILD(1-3)/Fever >100.5/HUGHES Amlodipine Besylate (Norvasc) 10 mg PO DAILY [facility] Last Admin: 09/29/16 10:00 Dose: Not Given Bisacodyl (Dulcolax) 10 mg MN QDAY PRN PRN Reason: Constipation unrelieved by MOM Clonidine HCl (Catapres) 0.1 mg PO BID [facility] Last Admin: 09/29/16 22:00 Dose: 0.1 mg Clopidogrel Bisulfate (Plavix) 75 mg PO QDAY [facility] Last Admin: 09/29/16 10:00 Dose: 75 mg Enoxaparin Sodium (Lovenox) 30 mg SUB-Q QDAY [facility] Last Admin: 09/29/16 10:00 Dose: 30 mg Fluconazole (Diflucan) 100 mg PO QDAY [facility] Stop: 10/03/16 10:00 Gabapentin (Neurontin) 400 mg PO BID [facility] Last Admin: 09/29/16 22:00 Dose: 400 mg Hydromorphone HCl (Dilaudid) 0.5 mg IV Q3H PRN PRN Reason: Pain , Severe (7-10) Vancomycin HCl 1,250 mg/ (Sodium Chloride) 250 mls @ 166.667 mls/hr IV Q36H [facility] Last Admin: 09/29/16 03:30 Dose: 166.667 mls/hr Potassium Chloride/Sodium Chloride (Ns 0.45/Kcl 20meq) 1,000 mls @ 100 mls/hr IV DIRECT CHIARA Insulin Aspart (Novolog) 5 units SUB-Q AC [facility] Last Admin: 09/29/16 17:00 Dose: Not Given Insulin Detemir (Levemir) 5 units SUB-Q QHS [facility] Last Admin: 09/29/16 22:53 Dose: 5 units Multivitamins/Minerals (Theragran-M Tab) 1 each PO QDAY [facility] Last Admin: 09/29/16 19:00 Dose: 1 each Ondansetron HCl (Zofran) 4 mg IV Q8H PRN PRN Reason: N/V unrelieved by Flora Vancomycin HCl (Vancomycin Pharmacy To Dose) 1 each IV PKCONSULT CHIARA PRN Reason: Protocol Physical Examination - Physical Exam Narrative exam: Well-developed, well-nourished appearing. No distress. HEENT: Pupils are equal reactive to light and accommodation. Conjunctiva clear. Oropharynx is normal with no evidence of oral candidiasis or pharyngitis. NECK: Supple. No enlargement of the thyroid gland. No significant cervical lymphadenopathy. No jugular venous distention at 30. LUNGS: Clear with no adventitious sounds. HEART: Regular rate. S1 and S2 are normal. There are no murmurs, gallops, clicks or rubs heard. ABDOMEN: Soft and nontender. Liver and spleen are not palpably enlarged or tender. No flank tenderness. No palpable masses. Bowel sounds are normoactive. Stratton catheter in place with concentrated appearing urine. EXTREMITIES: Stasis skin changes of distal lower extremities with 2+ edema. SKIN: No other rash, ulcers or wounds. NEUROLOGIC: No focal findings. She is oriented to her name and the fact that she is in the hospital. - Constitutional Vitals: Vital Signs Temp Pulse Resp BP Pulse Ox 98.6 F 58 L 20 141/66 98 09/30/16 08:00 09/30/16 08:00 09/30/16 08:00 09/30/16 08:00 09/30/16 08:00 Temperature -Last 24 Hours Temperature 98.6 F Temperature 97.6 F Temperature 98.6 F Temperature 98.4 F Temperature 98 F Temperature 97.8 F Results - Labs CBC & Chem 7: 09/30/16 03:51 09/30/16 03:51 Labs: Abnormal lab results 09/29/16 09/29/16 09/30/16 Range/Units 17:47 21:00 01:44 RBC (3.65-5.03) M/mm3 Hgb (10.1-14.3) gm/dl Hct (30.3-42.9) % RDW (13.2-15.2) % [place] % (Auto) (0.0-7.3) % Sodium (137-145) mmol/L Potassium 3.4 L (3.6-5.0) mmol/L Chloride 109.4 H (98-107) mmol/L BUN 18 H (7-17) mg/dL Creatinine 1.9 H (0.7-1.2) mg/dL POC Glucose 110 H (70-105) Total Protein (6.3-8.2) g/dL Albumin (3.9-5) g/dL Urine Creatinine 59.4 H (0.1-20.0) mg/dL 09/30/16 09/30/16 09/30/16 Range/Units 01:44 03:51 03:51 RBC 2.88 L (3.65-5.03) M/mm3 Hgb 8.6 L (10.1-14.3) gm/dl Hct 25.7 L (30.3-42.9) % RDW 17.5 H (13.2-15.2) % [place] % (Auto) 8.4 H (0.0-7.3) % Sodium 148 H 146 H (137-145) mmol/L Potassium 3.4 L (3.6-5.0) mmol/L Chloride 111.1 H (98-107) mmol/L BUN (7-17) mg/dL Creatinine 1.9 H 1.8 H (0.7-1.2) mg/dL POC Glucose (70-105) Total Protein 5.1 L (6.3-8.2) g/dL Albumin 2.4 L (3.9-5) g/dL Urine Creatinine (0.1-20.0) mg/dL Assessment and Plan Assessment: Ms Dailey is a 81y/o AA female who resides in a private residence and has a known history of DM2, HTN, CKD, documented obstructive nephropathy with kidney stones and previous left hydronephrosis, indwelling J stent, chronic Stratton catheter, diverticulosis, gout, and dementia. She presents for admission to [facility] with syncope. She is now found with positive blood cultures for coagulase-negative Staphylococcus ( ott -09/26) and a positive urine culture for VRE. Antibiotics: Vancomycin IV ( 09/27 - > Ceftriaxone 1 g IV (09/26 - 09/27) Conclusions: 1. Coagulase-negative staphylococcal bacteremia - suspect all contaminants 2. Bacteruria/pyuria -Indwelling left renal stent/chronic Stratton catheter -Positive culture for VRE ( 10 - 100,000 cfu E.durans/hirae) - suspect chronic colonization 3. Leukocytosis - R/O secondary to vasovagal episode -- Resolved 4. Anemia -- Probably multifactorial to include chronic disease 5. Syncope - R/O vasovagal episode ( reason for admission) 6. PATRICIA/CKD -- Obstructive uropathy/ s/p stent -- Bilateral nephrolithiasis 7. DM2 7. HTN 8. Hx Gouty arthritis 9. Dementia Recommendations: - Suggest follow off antibiotics - Repeat blood cultures pending - Would recommend VRE precautions - Glycemic control as per Hospitilist - Continue supportive care. Thank you for this consult.
--- NOTE | 2016-09-30 13:01 | Treadmill Report ---
THALLIUM STRESS TEST LEFT VENTRICLE: Left ventricular chamber size is within normal. Perfusion study demonstrates homogeneous uptake of the tracer in all segments. No significant defects identified. Gated analysis demonstrates normal left ventricular systolic function, ejection fraction 74%. CONCLUSION: Normal myocardial perfusion study. JOB# [id number] CA/NTS
--- NOTE | 2016-09-30 13:56 | Progress Note ---
Assessment and Plan - Patient Problems (1) Syncope Current Visit: Yes Status: Acute Qualifiers: Syncope type: unspecified Qualified Code(s): R55 - Syncope and collapse Plan to address problem: Syncope was vasovagal. (2) Bradycardia Current Visit: Yes Status: Acute Plan to address problem: Patient was noted with marked bradycardia while on metoprolol. Bradycardia is resolving off metoprolol.We will also consider stopping clonidine if bradycardia persists. Subjective Date of service: 09/30/16 Principal diagnosis: maria elena, nephrolithiasis Interval history: Patient is comfortable today, no cardiac complaints. Heart rate is 59-62, sinus rhythm. Objective Vital Signs Temp Pulse Pulse Pulse Resp Resp BP 09/30/16 11:30 98.0 F 60 18 09/30/16 08:00 98.6 F 58 L 20 09/30/16 04:00 97.6 F 58 L 20 09/30/16 00:00 98.6 F 62 18 09/29/16 22:00 61 20 124/66 09/29/16 20:00 98.4 F 61 18 09/29/16 16:00 98 F 60 18 BP Pulse Ox 09/30/16 11:30 141/66 100 09/30/16 08:00 141/66 98 09/30/16 04:00 106/61 99 09/30/16 00:00 121/60 100 09/29/16 22:00 09/29/16 20:00 124/66 100 09/29/16 16:00 145/61 - Physical Examination General: No Apparent Distress HEENT: Positive: PERRL Neck: Positive: neck supple, trachea midline Cardiac: Positive: Reg Rate and Rhythm Neuro: Positive: Grossly Intact Abdomen: Positive: Soft Skin: Positive: Clear Extremities: Absent: edema - Labs and Meds Cardiac Enzymes 09/30/16 Range/Units 03:51 AST 14 (5-40) units/L CBC 09/30/16 Range/Units 03:51 WBC 8.9 (4.5-11.0) K/mm3 RBC 2.88 L (3.65-5.03) M/mm3 Hgb 8.6 L (10.1-14.3) gm/dl Hct 25.7 L (30.3-42.9) % Plt Count 390 (140-440) K/mm3 Lymph # 2.8 (1.2-5.4) K/mm3 Bertie # 0.7 (0.0-0.8) K/mm3 Eos # 0.3 (0.0-0.4) K/mm3 Baso # 0.1 (0.0-0.1) K/mm3 Comprehensive Metabolic Panel 09/29/16 09/30/16 09/30/16 Range/Units 17:47 01:44 03:51 Sodium 145 148 H 146 H (137-145) mmol/L Potassium 3.4 L 3.4 L (3.6-5.0) mmol/L Chloride 109.4 H 111.1 H (98-107) mmol/L Carbon Dioxide 22 22 (22-30) mmol/L BUN 18 H 17 (7-17) mg/dL Creatinine 1.9 H 1.9 H 1.8 H (0.7-1.2) mg/dL Glucose 94 83 (65-100) mg/dL Calcium 8.8 8.7 (8.4-10.2) mg/dL AST 14 (5-40) units/L ALT 11 (7-56) units/L Alkaline Phosphatase 67 (35-129) units/L Total Protein 5.1 L (6.3-8.2) g/dL Albumin 2.4 L (3.9-5) g/dL
[2016-09-30] MEDS: THERAGRAN-M Tab PO SCH (14:35)
[2016-09-30] MEDS: NEURONTIN PO SCH ×2 (14:35→23:15)
[2016-09-30] MEDS: LOVENOX SUB-Q SCH (14:35)
[2016-09-30] MEDS: DIFLUCAN PO SCH (14:35)
[2016-09-30] MEDS: PLAVIX PO SCH (14:35)
[2016-09-30] MEDS: CATAPRES PO SCH ×2 (16:30→23:16)
[2016-09-30] MEDS: NORVASC PO SCH (16:30)
[2016-09-30] MEDS: LEVEMIR SUB-Q SCH (23:13)
[2016-10-01] MEDS: NOVOLOG SUB-Q SCH ×3 (08:00→17:00)
--- NOTE | 2016-10-01 08:02 | Progress Note ---
Assessment and Plan Impression * Acute renal failure * Chronic kidney disease * Bilateral kidney stones * Syncope * bradycardia * Hypertension * Diabetes * UTI--with yeast Recommendations * follow up renal ultrasound noted, will give diflucan with stones and abnormal ua * cr is better today, stable for dc from renal standpoint * continue full course of po diflucan * Her UA shows pyuria and also 2+ dipstick protein. He may have underlying diabetic nephropathy * Continue gentle IV hydration * id following * Hold off on diuretics as well as SEAN inhibitor or ARB's at this time * Avoid nephrotoxins * Strict intake and output * hr noted, stop clonidine with hr dropping to 50s * Monitor patient's fluid status, renal function and electrolytes closely Subjective Date of service: 10/01/16 Principal diagnosis: maria elena, nephrolithiasis Interval history: resting well in bed today Objective - Exam Narrative Exam: General appearance: well-developed, well-nourished, appears stated age EENT: PERRL, mucous membranes moist Neck: Present: neck supple, trachea midline Respiratory: Clear to Ascultation Heart: regular, normal heart rate Gastrointestinal: Present: normal, normoactive bowel sounds Integumentary: no rash, other (1+ pitting edema) - Vital Signs Vital signs: Vital Signs - 12hr 09/30/16 10/01/16 10/01/16 23:16 00:00 04:00 Temperature 98.2 F 97.7 F Pulse Rate 61 Pulse Rate [ 53 L 55 L From Monitor] Respiratory 16 16 Rate Blood Pressure 129/66 Blood Pressure 126/64 106/69 [Right Arm] O2 Sat by Pulse 100 100 Oximetry - Lab 10/01/16 08:09 10/01/16 08:09 Most recent lab results Calcium 8.7 mg/dL (8.4-10.2) 09/30/16 03:51 Magnesium 1.9 mg/dL (1.7-2.3) 09/26/16 12:47 Urine Creatinine 59.4 mg/dL (0.1-20.0) H 09/30/16 01:44 Urine Sodium 103 mEq/L 09/30/16 01:44
--- NOTE | 2016-10-01 08:10 | Vascular Lab Report ---
CAROTID DUPLEX STUDY: RIGHT PSVEDV CCA PROX: 74 9 CCA DIST: 83 7 ICA PROX: 7312 ICA MID: 58 8 ICA DIST: 6813 ECA: 76 VERT: 52 6 LEFT PSVEDV CCA PROX: 99 7 CCA DIST: 74 8 ICA PROX:59292 ICA MID: 6913 ICA DIST: 8516 ECA: 97 VERT: 65 5 REASON FOR EXAM: Carotid artery stenosis/syncope. COMMENTS ON THE RIGHT: Doppler frequency analysis is consistent with 16 to 49 percent diameter reduction of the internal carotid artery. Minimal amount of plaque is seen. The common carotid artery is patent. The external carotid artery is patent. The vertebral artery has antegrade flow. COMMENTS ON THE LEFT: Doppler frequency analysis is consistent with 50 to 79 percent diameter reduction of the internal carotid artery. Minimal to moderate amount of plaque is noted in the carotid bulb without significant extension into the internal carotid artery The common carotid artery is patent. The external carotid artery is patent. The vertebral artery has antegrade flow. IMPRESSION: 16 to 49 percent diameter reduction of the right internal carotid artery 50 to 79 percent diameter reduction of the left internal carotid artery Consider repeat carotid artery duplex in 6 months.
[2016-10-01 08:53] LABS: BUN/Creatinine Ratio 9.41; Calcium 9.1 mg/dL (8.4-10.2); Chloride 111.2 mmol/L (98-107); Potassium 3.8 mmol/L (3.6-5.0)
[2016-10-01 08:54] LABS: Basophils % (Auto) 0.7 % (0.0-1.8); Eosinophils % (Auto) 1.9 % (0.0-4.3); Hematocrit 28.3 % (30.3-42.9); Hemoglobin 9.1 gm/dl (10.1-14.3); Mean Corpuscular HGB Conc 32 % (30-34); Mean Corpuscular Hemoglobin 29 pg (28-32); Mean Corpuscular Volume 90 fl (79-97); Platelet Count 394 K/mm3 (140-440); Red Blood Count 3.14 M/mm3 (3.65-5.03); Red Cell Distribution Width 17.5 % (13.2-15.2); White Blood Count 8.7 K/mm3 (4.5-11.0)
[2016-10-01] MEDS: LOVENOX SUB-Q SCH (10:00)
[2016-10-01] MEDS: CATAPRES PO SCH ×2 (10:00→22:51)
[2016-10-01] MEDS: DIFLUCAN PO SCH (10:00)
[2016-10-01] MEDS: THERAGRAN-M Tab PO SCH (10:00)
[2016-10-01] MEDS: NEURONTIN PO SCH ×2 (10:00→22:54)
[2016-10-01] MEDS: NORVASC PO SCH (10:00)
[2016-10-01] MEDS: PLAVIX PO SCH (10:00)
--- NOTE | 2016-10-01 11:07 | Discharge Summary ---
Providers - Providers Date of Admission: 09/26/16 20:24 Date of discharge: 10/01/16 Attending physician: KARLA PARRY 09/27/16 06:56 Consult to Physician [CONS] Routine Consulting Provider: JOEL MOONEY Reason For Exam: Bradycardia,pause 2.[address] consult to:: DR. MOONEY Notified:: DR. MOONEY Was contact made?: Yes If yes, spoke with:: DR. MOONEY Comment:: CONSULT COMPLETED BY COMPLETED 09/29/16 11:26 Consult to Physician [CONS] Routine Consulting Provider: LEANN ONEAL Reason For Exam: acute renal failure Place consult to:: Dr. Vasquez Notified:: yes Was contact made?: Yes If yes, spoke with:: Dr. Vasquez Time called:: 16:20 09/29/16 17:25 Consult to Dietitian/Nutrition [CONS] Routine Physician Instructions: Reason For Exam: Reason for Consult: Poor oral intake Primary care physician: TOY ASSEMBLER Hospitalization Reason for admission: syncope Condition: Stable Pertinent studies: VASCULAR LAB PRELIMINARY REPORT CAROTID DOPPLER COMPLETED RT <50% STENOSIS BY DOPPLER VELOCITIES LT 50-79% STENOSIS BY DOPPLER VELOCITIES BILATERAL ANTEGRADE VERTEBRAL FLOW stress test-negative renal US-bilateral nephrolithiasis; no hydronephrosis Hospital course: Miss Dailey is an 81 yo F who presented to the ER with syncope; she was seen by the creative lead and thought to be vasovagal in nature; cardiac work up was negative; she also had bradycardia and metoprolol and clonidine were stopped with improvement in her HR; she was seen by the certified nurse practitioner and cleared for discharge; she was advised to follow up with urology regarding her ureteral stent. condition at discharge-stable Disposition: DC/TX HOME UNDER HOME HEALTH Time spent for discharge: 31 minutes - Discharge Diagnoses (1) Bradycardia Status: Acute (2) Syncope Status: Acute Qualifiers: Syncope type: unspecified Qualified Code(s): R55 - Syncope and collapse (3) Hypertension Status: Chronic Qualifiers: Hypertension type: essential hypertension Qualified Code(s): I10 - Essential (primary) hypertension (4) Type 2 diabetes mellitus Status: Chronic Qualifiers: Diabetes mellitus complication status: with hyperglycemia Diabetes mellitus extermination supervisor insulin use: with extermination supervisor use Qualified Code(s): E11.65 - Type 2 diabetes mellitus with hyperglycemia; Z79.4 - USP (current) use of insulin Core Measure Documentation - Palliative Care Palliative Care/ Comfort Measures: Not Applicable - Core Measures Any of the following diagnoses?: none Exam - Constitutional Vitals: Temp Pulse Resp BP Pulse Ox 98.0 F 52 L 16 134/71 100 10/01/16 08:00 10/01/16 08:00 10/01/16 04:00 10/01/16 08:00 10/01/16 04:00 General appearance: Present: no acute distress - EENT Eyes: Present: PERRL, EOM intact. Absent: scleral icterus, conjunctival injection ENT: hearing intact, clear oral mucosa, no oropharyngeal erythema - Neck Neck: Present: supple, normal ROM. Absent: enlarged thyroid, masses or JVD - Respiratory Respiratory effort: normal Respiratory: bilateral: diminished, negative: rales, rhonchi, wheezing - Cardiovascular Rhythm: regular Heart Sounds: Present: S1 & S2. Absent: gallop - Extremities Extremities: no ischemia, pulses intact, pulses symmetrical Peripheral Pulses: within normal limits - Abdominal General gastrointestinal: Present: soft, non-tender, non-distended Female genitourinary: Present: deferred - Rectal Rectal Exam: deferred - Integumentary Integumentary: Present: clear - Musculoskeletal Musculoskeletal: strength equal bilaterally - Psychiatric Psychiatric: appropriate mood/affect, cooperative - Neurologic Neurologic: CNII-XII intact, moves all extremities Plan Activity: advance as tolerated, fall precautions Diet: low salt, renal Special Instructions: home health RN (home PT) Follow up with: PADDY ROJAS MD [Staff Physician] - 7 Days RYAN KNIGHT MD [Staff Physician] - 7 Days PRIMARY CAREMD [Primary Care Provider] - 3-5 Days
--- NOTE | 2016-10-01 12:53 | Progress Note ---
Assessment and Plan Syncope -vasovagal Hypokalemia Leukocytosis Bilateral nephrolithiasis s/p recent ureteral stent exchange Hx of CAD s/p remote PCI in [place] (unknown anatomy) normal LVEF on echo 09/2016 No significant ischemia on MPI this admission Chronic renal disease Dementia Bacteremia Sinus bradycardia with non-significant pauses noted on telemetry: Improved since beta chyna stopped. TSH 2.9 Conservative cardiac management. Subjective Date of service: 10/01/16 Principal diagnosis: maria elena, nephrolithiasis Interval history: Patient has no cardiac complaints. No cardiac events overnight. Objective Vital Signs Temp Pulse Pulse Pulse Resp BP BP 10/01/16 08:00 98.0 F 52 L 134/71 10/01/16 04:00 97.7 F 55 L 16 10/01/16 00:00 98.2 F 53 L 16 09/30/16 23:16 61 129/66 09/30/16 20:00 97.7 F 61 16 09/30/16 16:30 98.0 F 59 L 16 BP Pulse Ox 10/01/16 08:00 10/01/16 04:00 106/69 100 10/01/16 00:00 126/64 100 09/30/16 23:16 09/30/16 20:00 129/66 100 09/30/16 16:30 128/64 98 - Physical Examination General: No Apparent Distress HEENT: Positive: PERRL Neck: Positive: neck supple, trachea midline Cardiac: Positive: Reg Rate and Rhythm Lungs: Positive: Decreased Breath Sounds Neuro: Positive: Grossly Intact Abdomen: Positive: Soft Skin: Positive: Clear Extremities: Absent: edema - Labs and Meds CBC 10/01/16 Range/Units 08:09 WBC 8.7 (4.5-11.0) K/mm3 RBC 3.14 L (3.65-5.03) M/mm3 Hgb 9.1 L (10.1-14.3) gm/dl Hct 28.3 L (30.3-42.9) % Plt Count 394 (140-440) K/mm3 Lymph # 2.8 (1.2-5.4) K/mm3 Early # 0.7 (0.0-0.8) K/mm3 Eos # 0.2 (0.0-0.4) K/mm3 Baso # 0.1 (0.0-0.1) K/mm3 Comprehensive Metabolic Panel 10/01/16 Range/Units 08:09 Sodium 145 (137-145) mmol/L Potassium 3.8 (3.6-5.0) mmol/L Chloride 111.2 H (98-107) mmol/L Carbon Dioxide 23 (22-30) mmol/L BUN 16 (7-17) mg/dL Creatinine 1.7 H (0.7-1.2) mg/dL Glucose 96 (65-100) mg/dL Calcium 9.1 (8.4-10.2) mg/dL
--- NOTE | 2016-10-01 13:16 | Progress Note ---
Assessment and Plan Ms Dailey is a 81y/o AA female who resides in a private residence and has a known history of DM2, HTN, CKD, documented obstructive nephropathy with kidney stones and previous left hydronephrosis, indwelling J stent, chronic Stratton catheter, diverticulosis, gout, and dementia. She presents for admission to [facility] with syncope. She is now found with positive blood cultures for coagulase-negative Staphylococcus ( ott -09/26) and a positive urine culture for VRE. Antibiotics: NONE s/p: Vancomycin IV ( 09/27 - 09/30) Ceftriaxone 1 g IV (09/26 - 09/27) Conclusions: 1. Coagulase-negative staphylococcal bacteremia - suspect all contaminants - Blood c/s 09/30 - NGTD 2. Bacteruria/pyuria -Indwelling left renal stent/chronic Stratton catheter -Positive culture for VRE ( 10 - 100,000 cfu E.durans/hirae) - suspect chronic colonization 3. Leukocytosis - R/O secondary to vasovagal episode -- Resolved 4. Anemia -- Probably multifactorial to include chronic disease 5. Syncope - R/O vasovagal episode ( reason for admission) 6. PATRICIA/CKD -- Obstructive uropathy/ s/p stent -- Bilateral nephrolithiasis 7. DM2 7. HTN 8. Hx Gouty arthritis 9. Dementia Recommendations: - Continue follow off antibiotics - Continue VRE precautions - Glycemic control as per Hospitilist - Continue supportive care. Disposition as per Medicine. Subjective Date of service: 10/01/16 Principal diagnosis: patricia, nephrolithiasis Interval history: Patient confused but no specific complaints. Objective - Exam Narrative Exam: Well-developed, well-nourished appearing. No distress. HEENT: Pupils are equal reactive to light and accommodation. Conjunctiva clear. Oropharynx is normal with no evidence of oral candidiasis or pharyngitis. NECK: Supple. No enlargement of the thyroid gland. No significant cervical lymphadenopathy. No jugular venous distention at 30. LUNGS: Clear with no adventitious sounds. HEART: Regular rate. S1 and S2 are normal. There are no murmurs, gallops, clicks or rubs heard. ABDOMEN: Soft and nontender. Liver and spleen are not palpably enlarged or tender. No flank tenderness. No palpable masses. Bowel sounds are normoactive. Stratton catheter in place with concentrated appearing urine. EXTREMITIES: Stasis skin changes of distal lower extremities with 2+ edema. SKIN: No other rash, ulcers or wounds. NEUROLOGIC: No focal findings. She is oriented to her name and the fact that she is in the hospital. - Constitutional Vitals: Vital Signs Temp Pulse Resp BP Pulse Ox 98.0 F 52 L 16 134/71 100 10/01/16 08:00 10/01/16 08:00 10/01/16 04:00 10/01/16 08:00 10/01/16 04:00 Temperature -Last 24 Hours Temperature 98.0 F Temperature 97.7 F Temperature 98.2 F Temperature 97.7 F Temperature 98.0 F - Labs CBC & Chem 7: 10/01/16 08:09 10/01/16 08:09 Labs: Abnormal lab results 09/30/16 10/01/16 10/01/16 Range/Units 16:35 08:09 08:09 RBC 3.14 L (3.65-5.03) M/mm3 Hgb 9.1 L (10.1-14.3) gm/dl Hct 28.3 L (30.3-42.9) % RDW 17.5 H (13.2-15.2) % [place] % (Auto) 7.6 H (0.0-7.3) % Chloride 111.2 H (98-107) mmol/L Creatinine 1.7 H (0.7-1.2) mg/dL POC Glucose 117 H (70-105) 10/01/16 Range/Units 08:36 RBC (3.65-5.03) M/mm3 Hgb (10.1-14.3) gm/dl Hct (30.3-42.9) % RDW (13.2-15.2) % [place] % (Auto) (0.0-7.3) % Chloride (98-107) mmol/L Creatinine (0.7-1.2) mg/dL POC Glucose 106 H (70-105)
[2016-10-01] MEDS: LEVEMIR SUB-Q SCH (22:52)
[2016-10-02] MEDS: NS IV SCH (03:39)
[2016-10-02] MEDS: KCL IV SCH (03:39)
--- NOTE | 2016-10-02 13:16 | Progress Note ---
Assessment and Plan Syncope -vasovagal Hypokalemia Leukocytosis Bilateral nephrolithiasis s/p recent ureteral stent exchange Hx of CAD s/p remote PCI in [place] (unknown anatomy) normal LVEF on echo 09/2016 No significant ischemia on MPI this admission Chronic renal disease Dementia Bacteremia Sinus bradycardia with non-significant pauses noted on telemetry: Improved since beta chyna stopped. TSH 2.9 Conservative cardiac management. Subjective Date of service: 10/02/16 Principal diagnosis: maria elena, nephrolithiasis Interval history: Patient denies chest pain and shortness of breath. No cardiac events overnight. Objective Vital Signs Temp Pulse Pulse Resp BP BP Pulse Ox 10/02/16 00:36 97.9 F 82 20 126/60 100 10/01/16 22:51 55 L 114/57 10/01/16 21:40 97.8 F 55 L 20 116/57 98 10/01/16 14:45 98.2 F 54 L 20 119/58 - Physical Examination General: No Apparent Distress HEENT: Positive: PERRL Neck: Positive: neck supple, trachea midline Cardiac: Positive: Reg Rate and Rhythm Lungs: Positive: Decreased Breath Sounds Neuro: Positive: Grossly Intact Extremities: Absent: edema
--- NOTE | 2016-10-02 13:22 | Progress Note ---
Assessment and Plan Assessment and plan: 1) Bradycardia- resolved with cessation of meds 2) Hypertension- cont meds; controlled 3. Type 2 diabetes mellitus- controlled; con meds 4. Renal calculi post stent-for outpt f/u as per urology 5. DVT prophylaxis - lovenox D/Wed with CM son's refusal to take her home - as per [place] she will get R. Z to talk with son - Patient Problems (1) Bradycardia Current Visit: Yes Status: Acute (2) Type 2 diabetes mellitus Current Visit: No Status: Chronic Qualifiers: Diabetes mellitus complication status: with hyperglycemia Diabetes mellitus complication detail: D Diabetic retinopathy severity: D Proliferative retinopathy type: P Diabetes mellitus macular edema: D Diabetes mellitus intermodal customer service insulin use: with intermediate use Laterality: L Chronic kidney disease stage: C Qualified Code(s): E11.65 - Type 2 diabetes mellitus with hyperglycemia; Z79.4 - snf (current) use of insulin (3) Hypertension Current Visit: No Status: Chronic Qualifiers: Hypertension type: essential hypertension Qualified Code(s): I10 - Essential (primary) hypertension (4) Syncope Current Visit: Yes Status: Acute Qualifiers: Syncope type: unspecified Encounter type: E Qualified Code(s): R55 - Syncope and collapse History Interval history: f/u bradycardia Patient was discharged yesterday but son did not take her as he wants urology to perform procedure while she is here no complaints Hospitalist Physical - Constitutional Vitals: Temp Pulse Resp BP Pulse Ox 97.9 F 82 20 126/60 100 10/02/16 00:36 10/02/16 00:36 10/02/16 00:36 10/02/16 00:36 10/02/16 00:36 General appearance: Present: no acute distress - EENT Eyes: Present: PERRL, EOM intact. Absent: scleral icterus, conjunctival injection ENT: hearing intact, clear oral mucosa, no oropharyngeal erythema, no poor dentition - Neck Neck: Present: supple, normal ROM. Absent: enlarged thyroid, masses or JVD - Respiratory Respiratory effort: normal Respiratory: negative: diminished, rales, rhonchi, wheezing - Cardiovascular Rhythm: regular Heart Sounds: Present: S1 & S2. Absent: gallop - Extremities Extremities: no ischemia, pulses intact, pulses symmetrical, No edema, normal temperature Peripheral Pulses: within normal limits - Abdominal General gastrointestinal: soft, non-tender, non-distended, normal bowel sounds - Integumentary Integumentary: Present: clear - Psychiatric Psychiatric: appropriate mood/affect - Neurologic Neurologic: CNII-XII intact, moves all extremities Results - Labs CBC & Chem 7: 10/01/16 08:09 10/01/16 08:09 Labs: Laboratory Last Values WBC 8.7 K/mm3 (4.5-11.0) 10/01/16 08:09 RBC 3.14 M/mm3 (3.65-5.03) L 10/01/16 08:09 Hgb 9.1 gm/dl (10.1-14.3) L 10/01/16 08:09 Hct 28.3 % (30.3-42.9) L 10/01/16 08:09 MCV 90 fl (79-97) 10/01/16 08:09 MCH 29 pg (28-32) 10/01/16 08:09 MCHC 32 % (30-34) 10/01/16 08:09 RDW 17.5 % (13.2-15.2) H 10/01/16 08:09 Plt Count 394 K/mm3 (140-440) 10/01/16 08:09 Lymph % (Auto) 31.7 % (13.4-35.0) 10/01/16 08:09 [place] % (Auto) 7.6 % (0.0-7.3) H 10/01/16 08:09 Eos % (Auto) 1.9 % (0.0-4.3) 10/01/16 08:09 Baso % (Auto) 0.7 % (0.0-1.8) 10/01/16 08:09 Lymph # 2.8 K/mm3 (1.2-5.4) 10/01/16 08:09 [place] # 0.7 K/mm3 (0.0-0.8) 10/01/16 08:09 Eos # 0.2 K/mm3 (0.0-0.4) 10/01/16 08:09 Baso # 0.1 K/mm3 (0.0-0.1) 10/01/16 08:09 Seg Neutrophils % 58.1 % (40.0-70.0) 10/01/16 08:09 Seg Neutrophils # 5.1 K/mm3 (1.8-7.7) 10/01/16 08:09 PT 13.3 Sec. (12.2-14.9) 09/26/16 12:47 INR 1.02 (0.87-1.13) 09/26/16 12:47 APTT 25.6 Sec. (24.2-36.6) 09/26/16 12:47 D-Dimer 1440.06 ng/mlDDU (0-234) H 09/26/16 12:47 Sodium 145 mmol/L (137-145) 10/01/16 08:09 Potassium 3.8 mmol/L (3.6-5.0) 10/01/16 08:09 Chloride 111.2 mmol/L (98-107) H 10/01/16 08:09 Carbon Dioxide 23 mmol/L (22-30) 10/01/16 08:09 Anion Gap 15 mmol/L 10/01/16 08:09 BUN 16 mg/dL (7-17) 10/01/16 08:09 Creatinine 1.7 mg/dL (0.7-1.2) H 10/01/16 08:09 Estimated GFR 35 ml/min 10/01/16 08:09 BUN/Creatinine Ratio 9.41 % 10/01/16 08:09 Glucose 96 mg/dL (65-100) 10/01/16 08:09 POC Glucose 196 (70-105) H 10/02/16 12:14 Hemoglobin A1c 5.7 % (4-6) 09/27/16 06:47 Lactic Acid 1.2 mmol/L (0.7-2.0) 09/26/16 16:25 Calcium 9.1 mg/dL (8.4-10.2) 10/01/16 08:09 Magnesium 1.9 mg/dL (1.7-2.3) 09/26/16 12:47 Total Bilirubin 0.3 mg/dL (0.1-1.2) 09/30/16 03:51 Direct Bilirubin Not Reportable 09/26/16 12:47 Indirect Bilirubin 0.3 mg/dL 09/26/16 12:47 AST 14 units/L (5-40) 09/30/16 03:51 ALT 11 units/L (7-56) 09/30/16 03:51 Alkaline Phosphatase 67 units/L (35-129) 09/30/16 03:51 Total Creatine Kinase 19 units/L (30-135) L 09/26/16 12:40 CK-MB (CK-2) < 1.0 ng/mL (0.0-4.0) 09/26/16 12:40 CK-MB (CK-2) Rel Index 5.2 (0-4) H 09/26/16 12:40 Troponin T 0.032 ng/mL (0.00-0.029) H 09/26/16 12:40 NT-Pro-B Natriuret Pep 2569 pg/mL (0-900) H 09/26/16 12:47 Total Protein 5.1 g/dL (6.3-8.2) L 09/30/16 03:51 Albumin 2.4 g/dL (3.9-5) L 09/30/16 03:51 Albumin/Globulin Ratio 0.9 % 09/30/16 03:51 Triglycerides 182 mg/dL (2-149) H 09/26/16 12:40 Cholesterol 127 mg/dL (50-199) 09/26/16 12:40 LDL Cholesterol Direct 57 mg/dL (50-130) 09/26/16 12:40 HDL Cholesterol 34 mg/dL (40-59) L 09/26/16 12:40 Cholesterol/HDL Ratio 3.73 % 09/26/16 12:40 TSH 2.910 mlU/mL (0.270-4.200) 09/26/16 12:47 Free T4 1.09 ng/dL (0.76-1.46) 09/26/16 12:47 Urine Color Yellow (Yellow) 09/26/16 15:23 Urine Turbidity Turbid (Clear) 09/26/16 15:23 Urine pH 5.0 (5.0-7.0) 09/26/16 15:23 Ur Specific [place] 1.012 (1.003-1.030) 09/26/16 15:23 Urine Protein 100 mg/dl mg/dL (Negative) 09/26/16 15:23 Urine Glucose (UA) Neg mg/dL (Negative) 09/26/16 15:23 Urine Ketones Tr mg/dL (Negative) 09/26/16 15:23 Urine Blood Sm (Negative) 09/26/16 15:23 Urine Nitrite Neg (Negative) 09/26/16 15:23 Urine Bilirubin Neg (Negative) 09/26/16 15:23 Urine Urobilinogen < 2.0 mg/dL (<2.0) 09/26/16 15:23 Ur Leukocyte Esterase Lg (Negative) 09/26/16 15:23 Urine WBC (Auto) > 182.0 /HPF (0.0-6.0) H 09/26/16 15:23 Urine RBC (Auto) 20.0 /HPF (0.0-6.0) 09/26/16 15:23 Urine Bacteria (Auto) 1+ /HPF (Negative) 09/26/16 15:23 Urine WBC Clumps 3+ /HPF 09/26/16 15:23 Hyaline Casts 107 /LPF 09/26/16 15:23 Urine Mucus Few /HPF 09/26/16 15:23 Ur Yeast w Hyphae Few /HPF 09/26/16 15:23 Urine Creatinine 59.4 mg/dL (0.1-20.0) H 09/30/16 01:44 Urine Sodium 103 mEq/L 09/30/16 01:44 Fraction Sodium Excret 2.1 09/30/16 01:44 Vancomycin Trough 6.2 ug/mL (5.0-20.0) 09/30/16 14:00
[2016-10-02 14:50] LABS: BUN/Creatinine Ratio 10.62; Calcium 8.9 mg/dL (8.4-10.2); Chloride 111.7 mmol/L (98-107); Potassium 3.7 mmol/L (3.6-5.0)
--- NOTE | 2016-10-02 15:03 | Progress Note ---
Assessment and Plan stopped by her son was not at bedside i tried calling him but no space in voicemail pt can go home litho not available until next week Subjective Date of service: 10/02/16 Principal diagnosis: maria elena, nephrolithiasis Objective - Labs CBC & Chem 7: 10/01/16 08:09 10/01/16 08:09 Labs: Abnormal lab results 10/01/16 10/02/16 10/02/16 Range/Units 16:06 08:12 12:14 POC Glucose 110 H 120 H 196 H (70-105)
--- NOTE | 2016-10-02 15:39 | Progress Note ---
Assessment and Plan Impression * Acute renal failure * Chronic kidney disease * Bilateral kidney stones * Syncope * bradycardia * Hypertension * Diabetes * UTI--with yeast Recommendations * follow up renal ultrasound noted, will give diflucan with stones and abnormal ua * cr is better today, stable for dc from renal standpoint * continue full course of po diflucan * Her UA shows pyuria and also 2+ dipstick protein. He may have underlying diabetic nephropathy * Continue gentle IV hydration * id following * Hold off on diuretics as well as SEAN inhibitor or ARB's at this time * Avoid nephrotoxins * Strict intake and output * hr noted, stop clonidine with hr dropping to 50s * Monitor patient's fluid status, renal function and electrolytes closely Subjective Date of service: 10/02/16 Principal diagnosis: maria elena, nephrolithiasis Interval history: resting well in bed today Objective - Exam Narrative Exam: General appearance: well-developed, well-nourished, appears stated age EENT: PERRL, mucous membranes moist Neck: Present: neck supple, trachea midline Respiratory: Clear to Ascultation Heart: regular, normal heart rate Gastrointestinal: Present: normal, normoactive bowel sounds Integumentary: no rash, other (1+ pitting edema) - Lab 10/01/16 08:09 10/02/16 05:00 Most recent lab results Calcium 8.9 mg/dL (8.4-10.2) 10/02/16 05:00 Magnesium 1.9 mg/dL (1.7-2.3) 09/26/16 12:47 Urine Creatinine 59.4 mg/dL (0.1-20.0) H 09/30/16 01:44 Urine Sodium 103 mEq/L 09/30/16 01:44
[2016-10-02] MEDS: CATAPRES PO SCH (22:00)
[2016-10-02] MEDS: LEVEMIR SUB-Q SCH (22:00)
[2016-10-02] MEDS: NEURONTIN PO SCH (22:00)
[2016-10-03] MEDS: KCL IV SCH (06:45)
[2016-10-03] MEDS: NS IV SCH (06:45)
[2016-10-03] MEDS: NOVOLOG SUB-Q SCH ×2 (08:00→12:26)
--- NOTE | 2016-10-03 08:45 | Event Note ---
Date: 10/03/16 Late entry for 10/02/16 Patient seen at the bedside she did not leave as her son refused to take her home vitals stable
[2016-10-03] MEDS: THERAGRAN-M Tab PO SCH (10:00)
[2016-10-03] MEDS: NEURONTIN PO SCH (11:00)
[2016-10-03] MEDS: CATAPRES PO SCH (11:00)
[2016-10-03] MEDS: PLAVIX PO SCH ×2 (11:00→14:31)
[2016-10-03] MEDS: NORVASC PO SCH (11:00)
[2016-10-03] MEDS: DIFLUCAN PO SCH (11:00)
[2016-10-03] MEDS: LOVENOX SUB-Q SCH (11:00)
[2016-10-03 11:33] LABS: BUN/Creatinine Ratio 11.42; Calcium 8.8 mg/dL (8.4-10.2); Chloride 109.5 mmol/L (98-107); Potassium 4.4 mmol/L (3.6-5.0)
--- NOTE | 2016-10-03 11:48 | Discharge Summary ---
Providers - Providers Date of Admission: 09/26/16 20:24 Date of discharge: 10/03/16 Attending physician: KARLA PARRY 09/29/16 11:26 Consult to Physician [CONS] Routine Consulting Provider: LEANN ONEAL Reason For Exam: acute renal failure Place consult to:: Dr. Vasquez Notified:: yes Was contact made?: Yes If yes, spoke with:: Dr. Vasquez Time called:: 16:20 09/29/16 17:25 Consult to Dietitian/Nutrition [CONS] Routine Physician Instructions: Reason For Exam: Reason for Consult: Poor oral intake Primary care physician: BOAT PILOT Hospitalization Condition: Stable Pertinent studies: VASCULAR LAB PRELIMINARY REPORT CAROTID DOPPLER COMPLETED RT <50% STENOSIS BY DOPPLER VELOCITIES LT 50-79% STENOSIS BY DOPPLER VELOCITIES BILATERAL ANTEGRADE VERTEBRAL FLOW stress test-negative renal US-bilateral nephrolithiasis; no hydronephrosis Hospital course: Hospital course: Miss Dailey is an 81 yo F who presented to the ER with syncope; she was seen by the dance costume designer and thought to be vasovagal in nature; cardiac work up was negative; she also had bradycardia and metoprolol and clonidine were stopped with improvement in her HR; she was seen by the sustainability specialist and cleared for discharge; she was advised to follow up with urology regarding her ureteral stent and lithotripsy. condition at discharge-stable Disposition: DC/TX HOME UNDER HOME HEALTH Time spent for discharge: 31 minutes - Discharge Diagnoses (1) Bradycardia Status: Acute (2) Type 2 diabetes mellitus Status: Chronic Qualifiers: Diabetes mellitus complication status: with hyperglycemia Diabetes mellitus complication detail: D Diabetic retinopathy severity: D Proliferative retinopathy type: P Diabetes mellitus macular edema: D Diabetes mellitus skilled nursing insulin use: with skilled nursing use Laterality: L Chronic kidney disease stage: C Qualified Code(s): E11.65 - Type 2 diabetes mellitus with hyperglycemia; Z79.4 - group home (current) use of insulin (3) Hypertension Status: Chronic Qualifiers: Hypertension type: essential hypertension Qualified Code(s): I10 - Essential (primary) hypertension (4) Syncope Status: Acute Qualifiers: Syncope type: unspecified Encounter type: E Qualified Code(s): R55 - Syncope and collapse Core Measure Documentation - Palliative Care Palliative Care/ Comfort Measures: Not Applicable - Core Measures Any of the following diagnoses?: none Exam - Constitutional Vitals: Temp Pulse Resp BP Pulse Ox 98.3 F 53 L 18 119/50 100 10/03/16 08:00 10/03/16 08:00 10/03/16 08:00 10/03/16 08:00 10/03/16 08:00 General appearance: Present: no acute distress, well-nourished - EENT Eyes: Present: PERRL, EOM intact. Absent: scleral icterus, conjunctival injection ENT: hearing intact, clear oral mucosa, no oropharyngeal erythema, no poor dentition - Neck Neck: Present: supple, normal ROM. Absent: enlarged thyroid, masses or JVD - Respiratory Respiratory effort: normal Respiratory: negative: diminished, rales, rhonchi, wheezing - Cardiovascular Rhythm: regular Heart Sounds: Present: S1 & S2. Absent: gallop - Extremities Extremities: no ischemia, pulses intact, pulses symmetrical, No edema Peripheral Pulses: within normal limits - Abdominal General gastrointestinal: Present: soft, non-tender, non-distended, normal bowel sounds Female genitourinary: Present: deferred - Rectal Rectal Exam: deferred - Integumentary Integumentary: Present: clear - Musculoskeletal Musculoskeletal: strength equal bilaterally - Psychiatric Psychiatric: appropriate mood/affect, intact judgment & insight, cooperative - Neurologic Neurologic: CNII-XII intact Plan Activity: fall precautions Diet: low salt, diabetic Follow up with: PADDY ROJAS MD [Staff Physician] - 7 Days RYAN KNIGHT MD [Staff Physician] - 7 Days PRIMARY CARE, [Primary Care Provider] - 3-5 Days
[2016-10-03 16:55] VITALS: BP 127/65
== END 2016-10-03 16:40 | disposition home health service (06) | DRG 70 ==
LOC: ED 11:34 → 2B-SURG 20:24
PROVIDERS: ADMIT Internal Medicine; ATTEND Hospitalist
DX: G93.40 Encephalopathy, unspecified (principal); A41.9 Sepsis, unspecified organism; N17.0 Acute kidney failure with tubular necrosis; I13.0 Hypertensive heart and chronic kidney disease with heart failure and stage 1 through stage 4 chronic kidney disease, or unspecified chronic kidney disease; N39.0 Urinary tract infection, site not specified; N18.3 Chronic kidney disease, stage 3 (moderate); D64.9 Anemia, unspecified; Z96.0 Presence of urogenital implants; Z86.73 Personal history of transient ischemic attack (TIA), and cerebral infarction without residual deficits; I25.10 Atherosclerotic heart disease of native coronary artery without angina pectoris; E78.5 Hyperlipidemia, unspecified; I50.9 Heart failure, unspecified; E11.42 Type 2 diabetes mellitus with diabetic polyneuropathy; M19.90 Unspecified osteoarthritis, unspecified site; F03.90 Unspecified dementia, unspecified severity, without behavioral disturbance, psychotic disturbance, mood disturbance, and anxiety; R00.1 Bradycardia, unspecified; N20.0 Calculus of kidney; I65.23 Occlusion and stenosis of bilateral carotid arteries; E87.6 Hypokalemia; E11.22 Type 2 diabetes mellitus with diabetic chronic kidney disease; M10.9 Gout, unspecified; E11.65 Type 2 diabetes mellitus with hyperglycemia; Z74.01 Bed confinement status; Z79.899 Other long term (current) drug therapy; Z82.49 Family history of ischemic heart disease and other diseases of the circulatory system; Z90.710 Acquired absence of both cervix and uterus; Z95.5 Presence of coronary angioplasty implant and graft; Z79.4 Long term (current) use of insulin
CPT/HCPCS: 36415; 71010; 76770; 78452; 78582; 80048; 80053; 80061; 80074; 80202; 81001; 82140; 82550; 82553; 82565; 82570; 82962; 83036; 83735; 83880; 84295; 84300; 84439; 84443; 84484; 85025; 85379; 85610; 85730; 87040; 87076; 87086; 87186; 89050; 93005; 93010; 93017; 93880; 96365; 96367; 96372; A9502; A9540; A9558; J0696; J1644; J1650; J1815; J1818; J2785; J3370; J7050

== ENCOUNTER 2017-02-03 23:29 | Emergency (ER) | payer MEDICARE ==
[2017-02-03] MEDS ORDERED: NACL 0.9% 1000 ML 1,000 ML ONE (23:34)
[2017-02-03] MEDS ORDERED: NACL 0.9% 1000 ML 1,000 ML IV ONE (23:34)
[2017-02-03] MEDS ORDERED: XYLOCAINE 2%/EPI 1:100,000 INFILTRATI ONE (23:44)
[2017-02-03] MEDS ORDERED: XYLOCAINE 1%/ EPI 1:100,000 INFILTRATI ONE (23:44)
--- NOTE | 2017-02-04 01:07 | Emergency Department Report ---
ED General Adult HPI - General Chief complaint: Altered Mental Status Stated complaint: UNRESPONSIVE Time Seen by Provider: 02/04/17 00:34 Source: family, EMS (report received from EMS.ems notes not available at time of chart dictation) Mode of arrival: Stretcher Limitations: Altered Mental Status - History of Present Illness Initial comments: This is an 81-year-old female. The patient is previously unknown to me. The patient is brought to the hospital by EMS for weakness and altered mental status. As per verbal report from EMS, the patient has been weak, not getting out of bed for the past 3 days. There is no history of trauma. EMS reports a normal fingerstick. Initially, upon arrival to the ER, the patient was breathing spontaneously, and saturating well. She was found to be somewhat hypotensive, we were unable to obtain a blood pressure on her, and we were unable to obtain peripheral access. A left-sided internal jugular central line was attempted using ultrasound guidance, but the guidewire would not advance. The patient then had a decompensation in her respiratory status, and she was intubated by myself using direct laryngoscopy, with no induction, and no paralytics. Shortly thereafter, the patient lost her pulses. CPR was initiated. Patient received epinephrine through an endotracheal tube. A left-sided external jugular IV was placed by the nurse, and the patient had a left lower extremity intraosseous IV placed by myself. Standard CPR was continued, standard ACLS medications were given. Unfortunately, pulses cannot be obtained on multiple examinations, and a bedside ultrasound demonstrated no coordinated ventricular activity. Resuscitation efforts were terminated. Family is informed -: days(s) Consistency: constant Improves with: none Worsens with: none - Related Data Home Medications Medication Instructions Recorded Confirmed Last Taken AtorvaSTATin [Lipitor] 20 mg PO QHS 09/04/16 09/26/16 09/04/16 Clopidogrel [Plavix] 75 mg PO QDAY 09/04/16 09/26/16 09/11/16 Gabapentin [Neurontin] 400 mg PO BID 09/04/16 09/26/16 09/04/16 Insulin Lispro [Humalog Kwikpen 8 unit SC QAM 09/04/16 09/26/16 09/04/16 200 UNITS/ML] amLODIPine [Norvasc] 10 mg PO DAILY 09/04/16 09/26/16 09/04/16 Multivitamin Tab [Multiple Vitamin 1 each PO QDAY 09/26/16 09/26/16 Unknown TAB (Theragran)] Previous Rx's Medication Instructions Recorded Last Taken Type Multivitamin Tab W-MINERAL 1 each PO QDAY #30 tablet 09/14/16 Unknown Rx [Multiple Vitamin/Mineral (Theragran M)] Allergies Allergy/AdvReac Type Severity Reaction Status Date / Time No Known Allergies Allergy Verified 08/14/15 13:19 ED Review of Systems ROS: Stated complaint: UNRESPONSIVE Other details as noted in HPI Comment: Unobtainable due to pts medical conditions ED Past Medical Hx - Past Medical History Previous Medical History?: Yes Hx Hypertension: Yes 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 - Social History Smoking Status: Unknown if ever smoked - Medications Home Medications: Home Medications Medication Instructions Recorded Confirmed Last Taken Type AtorvaSTATin [Lipitor] 20 mg PO QHS 09/04/16 09/26/16 09/04/16 History Clopidogrel [Plavix] 75 mg PO QDAY 09/04/16 09/26/16 09/11/16 History Gabapentin [Neurontin] 400 mg PO BID 09/04/16 09/26/16 09/04/16 History Insulin Lispro [Humalog Kwikpen 8 unit SC QAM 09/04/16 09/26/16 09/04/16 History 200 UNITS/ML] amLODIPine [Norvasc] 10 mg PO DAILY 09/04/16 09/26/16 09/04/16 History Multivitamin Tab W-MINERAL 1 each PO QDAY #30 tablet 09/14/16 09/26/16 Unknown Rx [Multiple Vitamin/Mineral (Theragran M)] Multivitamin Tab [Multiple Vitamin 1 each PO QDAY 09/26/16 09/26/16 Unknown History TAB (Theragran)] ED Physical Exam - General Limitations: Altered Mental Status General appearance: obtunded - Head Head exam: Present: atraumatic, normocephalic - Eye Eye exam: Present: normal appearance - ENT ENT exam: Present: mucous membranes dry - Neck Neck exam: Present: normal inspection. Absent: tenderness, meningismus - Respiratory Respiratory exam: Present: respiratory distress, rhonchi - Cardiovascular Cardiovascular Exam: Present: regular rate - GI/Abdominal GI/Abdominal exam: Present: soft, normal bowel sounds. Absent: distended, tenderness, guarding, rebound, rigid - Rectal Rectal exam: Present: other (sacral ulcers are noted) - Extremities Exam Extremities exam: Present: pedal edema - Neurological Exam Neurological exam: Present: altered - Skin Skin exam: Present: warm ED Course Vital Signs 02/04/17 00:48 Pulse Rate 120 H Respiratory 24 Rate O2 Sat by Pulse 90 Oximetry - Central Line Placement Left IJ Consent Obtained: emergent situation Time Out Performed: Yes Patient Placed on Monitor/Pulse Ox: Yes MD Prep: mask, gown Central Line Prep: Povidone-Iodine 1%, Chlorhexidine scrub, sterile drapes applied Local Anesthesia Used: Lidocaine 2%, with Epi Amount of Anesthesia Used (mls): 5 Ultrasound Used for Placement: Yes Bloods Obtained for Lab: No Patient Tolerated Procedure: other Complications: other (procedure was aborted, unable to advance guidewire) - Intubation Time Out Performed: No (emergency) Laryngoscope: Schuyler Size: 3 ET Tube Size: 7.5 Tube Secured Location: teeth Tube Placement Confirmation: visualized tube passing t Patient Tolerated Procedure: well Intubation Complications: none - IO Left Tibia Consent Obtained: emergent situation Time Out Performed: No IO Instrument Used to Penetrate the Cortex: standard IO needle Patient Tolerated Procedure: well Complications: none Critical care attestation.: If time is entered above; I have spent that time in minutes in the direct care of this critically ill patient, excluding procedure time. ED Disposition Clinical Impression: Cardiac arrest Disposition: Is pt being admited?: No Does the pt Need Aspirin: No Condition: Undetermined Referrals: PRIMARY CARE,MD [Primary Care Provider] - 3-5 Days
[2017-02-04] MEDS ORDERED: SODIUM BICARBONATE IV ONE (12:10)
[2017-02-04] MEDS ORDERED: D50W (25GM) IV ONE (12:10)
[2017-02-04] MEDS ORDERED: CALCIUM CHLORIDE IV ONE (12:10)
[2017-02-04] MEDS ORDERED: ADRENALIN ONE (12:10)
== END 2017-02-04 01:00 ==
LOC: ED 23:29
DX: I46.9 Cardiac arrest, cause unspecified (principal); Z86.73 Personal history of transient ischemic attack (TIA), and cerebral infarction without residual deficits; I50.9 Heart failure, unspecified; E11.9 Type 2 diabetes mellitus without complications; I12.0 Hypertensive chronic kidney disease with stage 5 chronic kidney disease or end stage renal disease; N18.6 End stage renal disease; M19.90 Unspecified osteoarthritis, unspecified site; Z95.818 Presence of other cardiac implants and grafts; Z79.4 Long term (current) use of insulin
CPT/HCPCS: 31500; 36556; 36680; 82962; 99285; J0171; J7030; J1815